=== PATIENT | female | born 1955 | race African-American/Black ===

== ENCOUNTER 2019-02-02 21:52 | Inpatient (IN) | payer MEDICARE, MEDICAID ==
[~2019-02-02] VITALS: Ht 175.3 cm; Wt 68.0 kg
--- NOTE | 2019-02-02 23:40 | NUR ---
NURSE NOTES: Received report from Jazmyne Cruz RN from [place] [facility]. Patient arrived via gurney and transferred to bed with staff assist. Head to toe assessment initiated with BLE swelling noted and sacral stage 2 observed.B Belongings checked and noted. Patient is AAO X 4 with no complaints of acute pain at this time. Patient kept on bedrest for active PE on BLE, MS aware and orders given. IV line intact and patent and on continuous cardiac monitoring per protocol. Safety precaution in place; siderails X3 up, call light within reach, bed in lowest position, brakes and alarm on at all times. Needs and wants anticipated and attended. Will continue plan of care.
[2019-02-03] VITALS: BP 113/77
[2019-02-03] MEDS ORDERED: FUROSEMIDE20 M1 ORAL (00:29)
[2019-02-03] MEDS ORDERED: cefTRIAXone 1 GM in D5W 55 ML IVPB SCH (03:00)
[2019-02-03 04:00] VITALS: BP 106/80
--- NOTE | 2019-02-03 05:00 | NUR ---
NURSE NOTES: Patient in bed asleep with no S/S of distress at this time. Will continue plan of care.
[2019-02-03] MEDS: HYDROcodone/Acetamin 5/325 tab ORAL PRN ×2 (06:29→20:33)
[2019-02-03 07:00] LABS: BASOPHILS % (AUTO) 0.5 % (0.0-2.0); EOSINOPHILS % (AUTO) 0.1 % (0.0-3.0); HEMATOCRIT 35.1 % (37.0-47.0); HEMOGLOBIN 11.6 G/DL (12.0-16.0); LYMPHOCYTES % (AUTO) 30.4 % (20.0-45.0); MEAN CORPUSCULAR VOLUME 98 FL (80-99); MONOCYTES % (AUTO) 4.9 % (1.0-10.0); NEUTROPHILS % (AUTO) 64.2 % (45.0-75.0); PLATELET COUNT 133 K/UL (150-450); RED BLOOD COUNT 3.58 M/UL (4.20-5.40); RED CELL DISTRIBUTION WIDTH 14.4 % (11.6-14.8); WHITE BLOOD COUNT 5.9 K/UL (4.8-10.8)
[2019-02-03 07:07] LABS: INR 1.4 (0.9-1.1)
[2019-02-03 07:21] LABS: ALANINE AMINOTRANSFERASE 42 U/L (12-78); ALBUMIN 1.3 G/DL (3.4-5.0); ALBUMIN/GLOBULIN RATIO 0.4 (1.0-2.7); ALKALINE PHOSPHATASE 138 U/L (46-116); ANION GAP 9 mmol/L (5-15); ASPARTATE AMINO TRANSFERASE 34 U/L (15-37); BILIRUBIN,TOTAL 0.4 MG/DL (0.2-1.0); BLOOD UREA NITROGEN 14 mg/dL (7-18); CALCIUM 6.7 MG/DL (8.5-10.1); CARBON DIOXIDE 24 MMOL/L (21-32); CHLORIDE 113 MMOL/L (98-107); CREATININE 1.1 MG/DL (0.55-1.30); PHOSPHORUS 2.9 MG/DL (2.5-4.9); SODIUM 146 MMOL/L (136-145)
[2019-02-03] MEDS ORDERED: [UNRECOGNIZED DRUG - REMARK] ORAL (07:34)
--- NOTE | 2019-02-03 07:35 | NUR ---
HAND-OFF: Report given to Arline Chamorro RN. Patient in stable condition. Endorsed plan of care.
--- NOTE | 2019-02-03 07:38 | NUR ---
NURSE NOTES: Report received from TATYANA Linder. Patient shows no signs of distress, A+Ox4, denies pain/SOB. Respirations are even and unlabored on room air. IV site is intact and saline locked. Bed is at lowest position, brakes engaged, siderails x3, bed alarm on, and call light within reach. Pt is in stable condition at this time; will continue to monitor.
--- NOTE | 2019-02-03 07:40 | NUR ---
NURSE NOTES: Left a message with Dr. Menjivar regarding patient's K of 3.0 and Mg of 1.7; awaiting response.
--- NOTE | 2019-02-03 07:51 | NUR ---
NURSE NOTES: Per Dr. Menjivar, Kcl 40meq PO q6hr x 2 doses. No other new orders. Order noted and carried out.
[2019-02-03 08:00] VITALS: BP 109/56
[2019-02-03] MEDS: Eliquis 5mg tablet ORAL SCH ×2 (08:33→17:40)
[2019-02-03 09:38] LABS: APPEARANCE,URINE CLOUDY; BILIRUBIN, URINE NEGATIVE (NEGATIVE); GLUCOSE, URINE (UA) NEGATIVE (NEGATIVE); KETONES,URINE 1+ (NEGATIVE); LEUKOCYTE ESTERASE ,URINE 3+ (NEGATIVE); NITRITE,URINE POSITIVE (NEGATIVE); PH,URINE 6.5 (4.5-8.0); PROTEIN,URINE 3+ (NEGATIVE); UROBILINOGEN,URINE 1 MG/DL (0.0-1.0)
[2019-02-03 09:39] LABS: COLOR,URINE BROWN
[2019-02-03 11:55] VITALS: BP 114/73
--- NOTE | 2019-02-03 12:43 | Consultation ---
History of Present Illness General Date patient seen: Feb 03, 2019 Present Illness HPI 63 year old female with gastric by-pas surgery 2003, DVT in November of this year, was put on Eliqui. She didn't take her anticoagulation because of her mother's . She was taken to [facility] yesterday with CC of chest pain for a few days. She had CT angio in [facility] showing Pulmonary embolism. She is transferred to [facility] for further management. She is asymptomatic now. Looks older than her age. Allergies: Coded Allergies: CODEINE (Verified Allergy, Intermediate, 02/03/19) Medication History Scheduled Furosemide* (Lasix*), 20 MG ORAL DAILY, (Reported) [med for OP], Unknown Dose ORAL ONCE A WEEK, (Reported) Patient History Healthcare decision maker Resuscitation status Full Code Advanced Directive on File No Past Medical/Surgical History Past Medical/Surgical History: (1) H/O neck surgery (2) DVT (deep venous thrombosis) (3) History of gastric bypass Review of Systems All Other Systems: negative except mentioned in HPI Physical Exam General Appearance: WD/WN, no apparent distress Lines, tubes and drains: peripheral HEENT: normocephalic, atraumatic Neck: non-tender, normal alignment Respiratory/Chest: chest wall non-tender, normal breath sounds Breasts: no masses Abdomen: normal bowel sounds Genitourinary/Rectal: normal genital exam Extremities: normal range of motion Last 24 Hour Vital Signs Date Time Temp Pulse Resp B/P (MAP) Pulse Ox O2 Delivery O2 Flow Rate FiO2 02/03/19 11:55 97.7 81 16 114/73 (87) 99 02/03/19 09:00 Room Air 02/03/19 08:00 90 02/03/19 08:00 98.1 84 16 109/56 (73) 98 02/03/19 04:00 89 02/03/19 04:00 97.5 88 19 106/80 (89) 96 02/03/19 01:39 Room Air 02/03/19 01:30 88 02/03/19 00:00 97.9 79 20 113/77 (89) 93 Intake and Output 02/02/19 02/03/19 19:00 07:00 Intake Total 120 ml Balance 120 ml Intake Oral 120 ml # Voids 1 # Bowel Movements 1 Laboratory Tests Test 02/03/19 06:18 02/03/19 08:20 White Blood Count 5.9 K/UL (4.8-10.8) Red Blood Count 3.58 M/UL (4.20-5.40) L Hemoglobin 11.6 G/DL (12.0-16.0) L Hematocrit 35.1 % (37.0-47.0) L Mean Corpuscular Volume 98 FL (80-99) Mean Corpuscular Hemoglobin 32.5 PG (27.0-31.0) H Mean Corpuscular Hemoglobin Concent 33.0 G/DL (32.0-36.0) Red Cell Distribution Width 14.4 % (11.6-14.8) Platelet Count 133 K/UL (150-450) L Mean Platelet Volume 5.7 FL (6.5-10.1) L Neutrophils (%) (Auto) 64.2 % (45.0-75.0) Lymphocytes (%) (Auto) 30.4 % (20.0-45.0) Monocytes (%) (Auto) 4.9 % (1.0-10.0) Eosinophils (%) (Auto) 0.1 % (0.0-3.0) Basophils (%) (Auto) 0.5 % (0.0-2.0) Prothrombin Time 14.3 SEC (9.30-11.50) H Prothromb Time International Ratio 1.4 (0.9-1.1) H Activated Partial Thromboplast Time 31 SEC (23-33) Sodium Level 146 MMOL/L (136-145) H Potassium Level 3.0 MMOL/L (3.5-5.1) L Chloride Level 113 MMOL/L (98-107) H Carbon Dioxide Level 24 MMOL/L (21-32) Anion Gap 9 mmol/L (5-15) Blood Urea Nitrogen 14 mg/dL (7-18) Creatinine 1.1 MG/DL (0.55-1.30) Estimat Glomerular Filtration Rate > 60 mL/min (>60) Glucose Level 78 MG/DL (74-106) Calcium Level 6.7 MG/DL (8.5-10.1) L Phosphorus Level 2.9 MG/DL (2.5-4.9) Magnesium Level 1.7 MG/DL (1.8-2.4) L Total Bilirubin 0.4 MG/DL (0.2-1.0) Aspartate Amino Transf (AST/SGOT) 34 U/L (15-37) Alanine Aminotransferase (ALT/SGPT) 42 U/L (12-78) Alkaline Phosphatase 138 U/L (46-116) H Total Protein 4.8 G/DL (6.4-8.2) L Albumin 1.3 G/DL (3.4-5.0) L Globulin 3.5 g/dL Albumin/Globulin Ratio 0.4 (1.0-2.7) L Urine Color Brown Urine Appearance Cloudy Urine pH 6.5 (4.5-8.0) Urine Specific [place] 1.015 (1.005-1.035) Urine Protein 3+ (NEGATIVE) H Urine Glucose (UA) Negative (NEGATIVE) Urine Ketones 1+ (NEGATIVE) H Urine Blood 5+ (NEGATIVE) H Urine Nitrite Positive (NEGATIVE) H Urine Bilirubin Negative (NEGATIVE) Urine Urobilinogen 1 MG/DL (0.0-1.0) H Urine Leukocyte Esterase 3+ (NEGATIVE) H Urine RBC 60-80 /HPF (0 - 2) H Urine WBC Tntc /HPF (0 - 2) H Urine Squamous Epithelial Cells Occasional /LPF Urine Bacteria Few /HPF (NONE) Height (Feet): 5 Height (Inches): 9.00 Weight (Pounds): 150 Medications Current Medications Medications (Trade) Dose Ordered Sig/Ronnie Route PRN Reason Start Time Stop Time Status Last Admin Dose Admin Acetaminophen (Tylenol) 650 mg Q6H PRN ORAL Mild Pain/Temp > 100.5 02/03/19 02:30 03/05/19 02:29 Acetaminophen/ Hydrocodone Bitart (Calvin 5/325) 1 tab Q6H PRN ORAL Severe Pain (Pain Scale 7-10) 02/03/19 02:30 02/10/19 02:29 02/03/19 06:29 Apixaban (Eliquis) 10 mg BID ORAL 02/03/19 09:00 03/05/19 08:59 02/03/19 08:33 Ceftriaxone Sodium 1 gm/ Dextrose 55 ml @ 110 mls/hr Q24H IVPB 02/03/19 21:00 02/10/19 02:59 Potassium Chloride (K-Dur) 40 meq ONCE ORAL 02/03/19 15:00 02/03/19 16:30 Assessment/Plan Problem List: (1) Pulmonary embolism ICD Codes: I26.99 - Other pulmonary embolism without acute cor pulmonale SNOMED: 87678883 (2) DVT (deep venous thrombosis) ICD Codes: I82.409 - Acute embolism and thrombosis of unspecified deep veins of unspecified lower extremity SNOMED: 701248651 (3) History of gastric bypass ICD Codes: Z98.84 - Bariatric surgery status SNOMED: 229585764 (4) H/O neck surgery ICD Codes: Z98.890 - Other specified postprocedural states SNOMED: 704839204 Assessment/Plan: brenden Tejeda pt/ot cardiac study venous doppler of legs Nga Arnett MD Feb 03, 2019 12:43
--- NOTE | 2019-02-03 14:17 | History & Physical ---
History and Physical History & Physicial Devonte Menjivar MD Feb 03, 2019 14:17
--- NOTE | 2019-02-03 15:09 | NUR ---
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 TO TELE CC CHEST PAIN, PT DID NOT TAKE ELIQUISE SI; R/O PE NA 146 K 3.0 MG 1.7 UA+ NITRITE,BLOOD,KETONES,PROTEIN,LEUKOCYTE ESTERASE,RBC,WBC CT ANGIO= PE IS: ROCEPHIN IV ELIQUISE PO K-DUR PO ADMITTED TO TELE TELE STATUS DCP RETURN HOME
[2019-02-03 16:00] VITALS: BP 113/82
--- NOTE | 2019-02-03 17:15 | History and Physical Report ---
DATE OF ADMISSION: 02/02/2019 CHIEF COMPLAINT: Shortness of breath and chest pain. HISTORY OF PRESENT ILLNESS: This is a 63-year-old female with past medical history significant for cervical as well as lumbar spine fusion, history of recent DVT in November of 2018, and history of morbid obesity status post gastric bypass surgery in 2013 who presented to the hospital after complaining about shortness of breath at the [facility] associated with chest pain over the past 2 days. The patient was diagnosed with DVT several months ago, was not started on any anticoagulation. The patient subsequently with chest discomfort, right-sided weakness over one week. Chest became progressively worsening, waxed and weaned. She reports some urinary tract symptoms with blood in the urine just started. The patient denies any fever, however, had chills and nausea. No vomiting. No loss of consciousness. No seizure activity. No bowel or urine incontinence. No head and neck trauma. Shortly after initial evaluation in the emergency at [facility], the patient was confirmed to have acute PE and subsequently was transferred to [facility] for further evaluation and therapy. PAST MEDICAL HISTORY/PAST SURGICAL HISTORY: Cervical as well as lumbar fusion, history of morbid obesity status post gastric bypass in 2013, osteoporosis. MEDICATIONS AT HOME: Significant for Fosamax. ALLERGIES: To codeine. SOCIAL HISTORY: The patient denies any smoking, alcohol, or drugs. 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 FAMILY HISTORY: Mother - history of lupus, father - history of diabetes, alive, and grandma - history of lung cancer, smoker. REVIEW OF SYSTEMS: Mostly as above. Denies any dysuria or frequency. Complained about hematuria. Denies any hemoptysis or hematochezia. Complained about abdominal discomfort, right-sided weakness. Denies any loss of consciousness. Denies any double vision. Complained about pedal edema. PHYSICAL EXAMINATION: VITAL SIGNS: On admission from the ER in the [facility], blood pressure 116/82, temperature 98, pulse is 118, respirations 18. GENERAL: The patient is awake, responsive, no acute distress. HEAD AND NECK: Pupils are reactive to light. Extraocular movements intact. Neck was supple. No JVD. LUNGS: Good air entry with no wheeze or rales. HEART: S1, S2. Distant heart sounds. No murmur or gallops. ABDOMEN: Soft, nondistended, nontender. Bowel sounds present. EXTREMITIES: No cyanosis, clubbing. +2 edema bilateral lower extremity. NEUROLOGIC: Cranial nerves II through XII grossly intact. Motor is 5/5. Gait is not assessed due to the patient's status. RECTAL: Refused and deferred. GENITOURINARY: Refused and deferred. PSYCHIATRIC: Mood and affect is intact. LABORATORY DATA: On admission from today from [place], WBC of 5.9, hemoglobin 11, hematocrit 35, platelet is 133. Sodium 146, potassium 3.0, chloride 113, bicarbonate is 24, BUN is 14, creatinine 1.1, GFR is greater than 60. Phosphorus 2.9, magnesium is 1.7. AST of 34, ALT of 42, alkaline phosphatase 138. Total protein is 4.8, albumin is 1.3. PT 14, INR 1.4, PTT of 31. UA is +1 ketone, +5 blood, positive nitrite, +3 leukocyte, tainted wbc. The patient's EKG is normal sinus rhythm with ventricular rate of 79. No ST elevation was noted. This was the reading from the [place]. Chest x-ray, no infiltrate or effusion. Hardware was noted. CT of the chest at [facility] pulmonary embolism are seen at the right main pulmonary artery and throughout the right lobes. Emboli are seen in all of the left lobe arteries, small to moderate left pleural effusion, atelectasis or a small infarction is seen in the right lower lobe. ASSESSMENT: 1. Acute PE, bilateral PE. 2. History of DVT of lower extremity. 3. Hypoalbuminemia. 4. Acute UTI. 5. Thrombocytopenia. 6. Hypokalemia. PLAN: Admit the patient to telemetry. We will follow up with the laboratory, echocardiogram. Discussed with Dr. Arnett from [facility]. We will follow up with the Eliquis for DVT. Code status at this time Full Code and reviewed the [facility] records and placed in the chart. Discussed with the patient extensively with regard to plan of care and expected to be discharged within 2 to 3 days. Devonte Menjivar M.D. DR: MARINA JOB#: [id number] CC:
--- NOTE | 2019-02-03 17:36 | NUR ---
NURSE NOTES:WOUND CARE NOTES:Pt presented on admission with Generalized edemae.Full thickness sacral pressure injury. Base of wound is moist with small amt Biofilm. Edges are moist and black and tender when minimally palpated. No exudate noted. Periwound skin is darker in tone. Both R and L heels are boggy with non-blanching erythema. Tx.Plan: Cleanse Sacral wound with Saline. Apply TheraHoney. Apply Moisture Barrier Paste periwound. Cover with Optifoam drsg. Change every 3 days and prn. Apply Cavilon Skin Barrier to Both heels. Cover each heel with Optifoam Drsg. Change every 7 days and prn. Reposition at least every 2hours or as tolerated. Off-load heels with pillow.
--- NOTE | 2019-02-03 18:10 | Consultation ---
History of Present Illness General Date patient seen: Feb 03, 2019 Present Illness HPI This is a very pleasant 63-year-old female with prior gastric bypass and history of DVT who was on anticoagulation prior not always compliant with meds that presented to [facility] complaining of worsening lower extremity discomfort. Patient states ongoing for a few days and feels like cramping in her lower extremities. Has had this prior. Believes is related to the DVT she has. States she is been going through a lot lately. States that for the past few months her right side is been weak and she has not been able to move much on her own. No nausea vomiting fever chills. Otherwise comfortable. States overall just has pain mainly in the legs. When discussed patient says she is concerned that her mobility has been very limited recently and worsening but has not found a reason why though yet. Discussed if any possible history of stroke or certain events and denies. On transfer I was called by Dr. Menjivar to evaluate and assist with care and management. Patient seen, patient evaluated, chart reviewed Allergies: Coded Allergies: CODEINE (Verified Allergy, Intermediate, 02/03/19) Medication History Scheduled Furosemide* (Lasix*), 20 MG ORAL DAILY, (Reported) [med for OP], Unknown Dose ORAL ONCE A WEEK, (Reported) Patient History History Provided By: Patient, Medical Record, PMD Healthcare decision maker Resuscitation status Full Code Advanced Directive on File No Past Medical/Surgical History Past Medical/Surgical History: (1) Decubitus skin ulcer (2) DVT (deep venous thrombosis) (3) Pulmonary embolism (4) History of gastric bypass (5) H/O neck surgery Review of Systems Review of Symptoms General ROS: no weight loss or fever Psychological ROS: no depression or mood changes, no memory loss Ophthalmic ROS: no visual changes or eye irritation ENT ROS: no nasal congestion, hearing loss, dizziness Allergy and Immunology ROS: no allergic symptoms or urticaria Hematological and Lymphatic ROS: no swollen glands, unusual bleeding or bruising Endocrine ROS: no polyuria, polydipsia, weight changes, temperature intolerance Respiratory ROS: no cough, shortness of breath, or wheezing Cardiovascular ROS: no chest pain or dyspnea on exertion Gastrointestinal ROS: denies abdominal pain, no bright red blood in stool. Musculoskeletal ROS: LE pain Neurological ROS: no TIA or stroke symptoms Dermatological ROS: no new or changing skin lesions, rashes or pruritis Physical Exam Physical Exam General appearance: alert, cooperative, no distress, appears stated age Head: Normocephalic, without obvious abnormality, atraumatic Eyes: conjunctivae/corneas clear. PERRL, EOM's intact. Fundi benign Throat: Lips, mucosa, and tongue normal. Teeth and gums normal Neck: supple, symmetrical, trachea midline, no adenopathy, thyroid: not enlarged, symmetric, no tenderness/mass/nodules, no carotid bruit and no JVD Lungs: clear to auscultation bilaterally Heart: regular rate and rhythm, S1, S2 normal, no murmur, click, rub or gallop Abdomen: soft, non-tender. Bowel sounds normal. No masses, no organomegaly Extremities: extremities normal, atraumatic, no cyanosis ++ edema, decreased rom Pulses: 2+ and symmetric Skin: Skin color, texture, turgor normal. No rashes or lesions decubitus skin ulcer sacrum Neurologic: Grossly normal Last 24 Hour Vital Signs Date Time Temp Pulse Resp B/P (MAP) Pulse Ox O2 Delivery O2 Flow Rate FiO2 02/03/19 16:00 78 02/03/19 16:00 97.7 82 16 113/82 (92) 99 02/03/19 12:00 78 02/03/19 11:55 97.7 81 16 114/73 (87) 99 02/03/19 09:00 Room Air 02/03/19 08:00 90 02/03/19 08:00 98.1 84 16 109/56 (73) 98 02/03/19 04:00 89 02/03/19 04:00 97.5 88 19 106/80 (89) 96 02/03/19 01:39 Room Air 02/03/19 01:30 88 02/03/19 00:00 97.9 79 20 113/77 (89) 93 Intake and Output 02/02/19 02/03/19 19:00 07:00 Intake Total 120 ml Balance 120 ml Intake Oral 120 ml # Voids 1 # Bowel Movements 1 Laboratory Tests Test 02/03/19 06:18 02/03/19 08:20 White Blood Count 5.9 K/UL (4.8-10.8) Red Blood Count 3.58 M/UL (4.20-5.40) L Hemoglobin 11.6 G/DL (12.0-16.0) L Hematocrit 35.1 % (37.0-47.0) L Mean Corpuscular Volume 98 FL (80-99) Mean Corpuscular Hemoglobin 32.5 PG (27.0-31.0) H Mean Corpuscular Hemoglobin Concent 33.0 G/DL (32.0-36.0) Red Cell Distribution Width 14.4 % (11.6-14.8) Platelet Count 133 K/UL (150-450) L Mean Platelet Volume 5.7 FL (6.5-10.1) L Neutrophils (%) (Auto) 64.2 % (45.0-75.0) Lymphocytes (%) (Auto) 30.4 % (20.0-45.0) Monocytes (%) (Auto) 4.9 % (1.0-10.0) Eosinophils (%) (Auto) 0.1 % (0.0-3.0) Basophils (%) (Auto) 0.5 % (0.0-2.0) Prothrombin Time 14.3 SEC (9.30-11.50) H Prothromb Time International Ratio 1.4 (0.9-1.1) H Activated Partial Thromboplast Time 31 SEC (23-33) Sodium Level 146 MMOL/L (136-145) H Potassium Level 3.0 MMOL/L (3.5-5.1) L Chloride Level 113 MMOL/L (98-107) H Carbon Dioxide Level 24 MMOL/L (21-32) Anion Gap 9 mmol/L (5-15) Blood Urea Nitrogen 14 mg/dL (7-18) Creatinine 1.1 MG/DL (0.55-1.30) Estimat Glomerular Filtration Rate > 60 mL/min (>60) Glucose Level 78 MG/DL (74-106) Calcium Level 6.7 MG/DL (8.5-10.1) L Phosphorus Level 2.9 MG/DL (2.5-4.9) Magnesium Level 1.7 MG/DL (1.8-2.4) L Total Bilirubin 0.4 MG/DL (0.2-1.0) Aspartate Amino Transf (AST/SGOT) 34 U/L (15-37) Alanine Aminotransferase (ALT/SGPT) 42 U/L (12-78) Alkaline Phosphatase 138 U/L (46-116) H Total Protein 4.8 G/DL (6.4-8.2) L Albumin 1.3 G/DL (3.4-5.0) L Globulin 3.5 g/dL Albumin/Globulin Ratio 0.4 (1.0-2.7) L Urine Color Brown Urine Appearance Cloudy Urine pH 6.5 (4.5-8.0) Urine Specific [place] 1.015 (1.005-1.035) Urine Protein 3+ (NEGATIVE) H Urine Glucose (UA) Negative (NEGATIVE) Urine Ketones 1+ (NEGATIVE) H Urine Blood 5+ (NEGATIVE) H Urine Nitrite Positive (NEGATIVE) H Urine Bilirubin Negative (NEGATIVE) Urine Urobilinogen 1 MG/DL (0.0-1.0) H Urine Leukocyte Esterase 3+ (NEGATIVE) H Urine RBC 60-80 /HPF (0 - 2) H Urine WBC Tntc /HPF (0 - 2) H Urine Squamous Epithelial Cells Occasional /LPF Urine Bacteria Few /HPF (NONE) Height (Feet): 5 Height (Inches): 9.00 Weight (Pounds): 150 Medications Current Medications Medications (Trade) Dose Ordered Sig/Ronnie Route PRN Reason Start Time Stop Time Status Last Admin Dose Admin Acetaminophen (Tylenol) 650 mg Q6H PRN ORAL Mild Pain/Temp > 100.5 02/03/19 02:30 03/05/19 02:29 Acetaminophen/ Hydrocodone Bitart (Stella 5/325) 1 tab Q6H PRN ORAL Severe Pain (Pain Scale 7-10) 02/03/19 02:30 02/10/19 02:29 02/03/19 06:29 Apixaban (Eliquis) 10 mg BID ORAL 02/03/19 09:00 03/05/19 08:59 02/03/19 17:40 Ceftriaxone Sodium 1 gm/ Dextrose 55 ml @ 110 mls/hr Q24H IVPB 02/03/19 21:00 02/10/19 02:59 Assessment/Plan Problem List: (1) Decubitus skin ulcer Assessment & Plan: Patient presented on admission with edema and wound complaining of pain in lower extremities for some time believed to be related to her DVT Full thickness stage 3 sacral pressure injury. Base of wound is moist with small amt Biofilm. Edges are moist and black and tender when minimally palpated. No exudate noted. Periwound skin is darker in tone. Both R and L heels are boggy with non-blanching erythema. Patient states that she has been having worsening limited mobility over the course the past few months. States that she can somewhat turn herself but her right side is weak and is unable to turn at all times. Is able to wiggle her toes and lower extremities but limited. Right upper extremity most limited. Denies history of prior stroke or events. States is been slowly worsening over the past some months. Notes history of osteoporosis. Tx.Plan: Cleanse Sacral wound with Saline. Apply TheraHoney. Apply Moisture Barrier Paste periwound. Cover with Optifoam drsg. Change every 3 days and prn. Apply Cavilon Skin Barrier to Both heels. Cover each heel with Optifoam Drsg. Change every 7 days and prn. Reposition at least every 2hours or as tolerated. Off-load heels with pillow. Nutritional supplementation will follow with care plan and recommendations thank you ICD Codes: L89.90 - Pressure ulcer of unspecified site, unspecified stage SNOMED: 137263189 Junaid Hope Feb 03, 2019 18:10
--- NOTE | 2019-02-03 19:40 | NUR ---
HAND-OFF: Report given to TATYANA Linder. Pt is in stable condition; plan of care endorsed.
--- NOTE | 2019-02-03 19:45 | NUR ---
NURSE NOTES: Received report from Arline Chamorro RN. Patient in bed AAO X4 with no complaints of acute pain at this time. Patient kept on bedrest for active PE on BLE, MS aware and orders given. IV line intact and patent and on continuous cardiac monitoring per protocol. Safety precaution in place; siderails X3 up, call light within reach, bed in lowest position, brakes and alarm on at all times. Needs and wants anticipated and attended. Will continue plan of care. ABD US tomorrow 02/04/19. NPO at midnight
[2019-02-03 20:00] VITALS: BP 110/76
[2019-02-03] MEDS: cefTRIAXone 1 GM in D5W 55 ML IVPB SCH (20:33)
[2019-02-04] VITALS: BP 100/77
[2019-02-04 04:00] VITALS: BP 112/74
[2019-02-04 06:56] LABS: BASOPHILS % (AUTO) 0.6 % (0.0-2.0); HEMATOCRIT 41.1 % (37.0-47.0); HEMOGLOBIN 13.4 G/DL (12.0-16.0); LYMPHOCYTES % (AUTO) 36.4 % (20.0-45.0); MEAN CORPUSCULAR VOLUME 100 FL (80-99); MONOCYTES % (AUTO) 5.8 % (1.0-10.0); NEUTROPHILS % (AUTO) 57.1 % (45.0-75.0); PLATELET COUNT 167 K/UL (150-450); RED CELL DISTRIBUTION WIDTH 14.2 % (11.6-14.8); WHITE BLOOD COUNT 7.6 K/UL (4.8-10.8)
--- NOTE | 2019-02-04 07:35 | NUR ---
HAND-OFF: Report given to Elvis Resendez RN. Patient in bed with no S/S of distress. Endorsed plan of care.
--- NOTE | 2019-02-04 07:39 | NUR ---
NURSE NOTES: HANDOFF RECEIVED FROM TATYANA MOODY. PATIENT RECEIVED AWAKE AND ALERT AND ABLE TO MAKE NEEDS KNOWN. PATIENT HAS IV SITE, CLEAN DRY AND INTACT, SALINE LOCKED. NO SIGNS OF DISTRESS NOTED. BED IS IN THE LOW AND LOCKED POSITION WITH CALL LIGHT WITHIN REACH. WILL CONTINUE TO MONITOR PATIENT.
[2019-02-04 07:43] LABS: ALANINE AMINOTRANSFERASE 49 U/L (12-78); ALBUMIN 1.6 G/DL (3.4-5.0); ALBUMIN/GLOBULIN RATIO 0.4 (1.0-2.7); ALKALINE PHOSPHATASE 158 U/L (46-116); ANION GAP 7 mmol/L (5-15); ASPARTATE AMINO TRANSFERASE 40 U/L (15-37); BILIRUBIN,TOTAL 0.4 MG/DL (0.2-1.0); BLOOD UREA NITROGEN 13 mg/dL (7-18); CALCIUM 7.1 MG/DL (8.5-10.1); CARBON DIOXIDE 24 MMOL/L (21-32); CHLORIDE 112 MMOL/L (98-107); CREATININE 1.2 MG/DL (0.55-1.30); LACTATE DEHYDROGENASE 603 U/L (81-234); PHOSPHORUS 2.3 MG/DL (2.5-4.9); POTASSIUM 3.8 MMOL/L (3.5-5.1); SODIUM 143 MMOL/L (136-145)
[2019-02-04 08:00] VITALS: BP 106/72
[2019-02-04] MEDS: Eliquis 5mg tablet ORAL SCH ×2 (09:10→17:20)
--- NOTE | 2019-02-04 10:08 | Pulmonology Progress Note ---
Assessment/Plan Problems: (1) Pulmonary embolism (2) DVT (deep venous thrombosis) (3) History of gastric bypass (4) H/O neck surgery (5) UTI (urinary tract infection) (6) Severe protein-calorie malnutrition (7) Hypophosphatemia Assessment/Plan pt/ot Phos supplement on Eliquis still tachy abd US pending Subjective Interval Events: no new complains Allergies: Coded Allergies: CODEINE (Verified Allergy, Intermediate, 02/03/19) Objective Last 24 Hour Vital Signs Date Time Temp Pulse Resp B/P (MAP) Pulse Ox O2 Delivery O2 Flow Rate FiO2 02/04/19 09:00 Room Air 02/04/19 08:00 97.2 74 18 106/72 (83) 96 02/04/19 04:00 98.9 74 18 112/74 (87) 97 02/04/19 04:00 63 02/04/19 00:00 99.0 78 18 100/77 (85) 96 02/04/19 00:00 69 02/03/19 21:00 Room Air 02/03/19 20:00 71 02/03/19 20:00 99.3 70 18 110/76 (87) 98 02/03/19 16:00 78 02/03/19 16:00 97.7 82 16 113/82 (92) 99 02/03/19 12:00 78 02/03/19 11:55 97.7 81 16 114/73 (87) 99 Intake and Output 02/03/19 02/04/19 19:00 07:00 Intake Total 630 ml 120 ml Output Total 300 ml Balance 330 ml 120 ml Intake Oral 630 ml 120 ml Output Urine Total 300 ml # Voids 1 General Appearance: WD/WN HEENT: normocephalic, atraumatic Respiratory/Chest: chest wall non-tender, lungs clear Breasts: no masses Cardiovascular: normal peripheral pulses, normal rate Abdomen: normal bowel sounds, soft, non tender Neurologic/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: principal technical architect II-XII grossly normal Lymphatic: no neck adenopathy Microbiology Date/Time Source Procedure Growth Status 02/03/19 08:20 Urine,Clean Catch Urine Culture - Preliminary Gram Negative Bacillus 1 Resulted Laboratory Tests 02/04/19 06:11: White Blood Count 7.6, Red Blood Count 4.10L, Hemoglobin 13.4, Hematocrit 41.1, Mean Corpuscular Volume 100H, Mean Corpuscular Hemoglobin 32.6H, Mean Corpuscular Hemoglobin Concent 32.5, Red Cell Distribution Width 14.2, Platelet Count 167, Mean Platelet Volume 5.7L, Neutrophils (%) (Auto) 57.1, Lymphocytes ( %) (Auto) 36.4, Monocytes (%) (Auto) 5.8, Eosinophils (%) (Auto) 0.0, Basophils (%) (Auto) 0.6, Erythrocyte Sedimentation Rate 9, Reticulocyte Count [Pending], Sodium Level 143, Potassium Level 3.8, Chloride Level 112H, Carbon Dioxide Level 24, Anion Gap 7, Blood Urea Nitrogen 13, Creatinine 1.2, Estimat Glomerular Filtration Rate 54.9, Glucose Level 78, Calcium Level 7.1L, Phosphorus Level 2.3L, Magnesium Level 2.0, Total Bilirubin 0.4, Aspartate Amino Transf (AST/SGOT) 40H, Alanine Aminotransferase (ALT/SGPT) 49, Alkaline Phosphatase 158H, Lactate Dehydrogenase 603H, Total Protein 5.7L, Albumin 1.6L, Globulin 4.1, Albumin/Globulin Ratio 0.4L Current Medications Medications (Trade) Dose Ordered Sig/Ronnie Route PRN Reason Start Time Stop Time Status Last Admin Dose Admin Acetaminophen (Tylenol) 650 mg Q6H PRN ORAL Mild Pain/Temp > 100.5 02/03/19 02:30 03/05/19 02:29 02/04/19 09:09 Acetaminophen/ Hydrocodone Bitart ([place] 5/325) 1 tab Q6H PRN ORAL Severe Pain (Pain Scale 7-10) 02/03/19 02:30 02/10/19 02:29 02/03/19 20:33 Apixaban (Eliquis) 10 mg BID ORAL 02/03/19 09:00 03/05/19 08:59 02/04/19 09:10 Ceftriaxone Sodium 1 gm/ Dextrose 55 ml @ 110 mls/hr Q24H IVPB 02/03/19 21:00 02/10/19 02:59 02/03/19 20:33 Nga Arnett MD Feb 04, 2019 10:08
--- NOTE | 2019-02-04 11:05 | NUR ---
PT EVALUATION NOTE Patient seen for initial evaluation, see complete evaluation for details. Patient presents with generalized weakness which impairs patient's ability to perform mobility tasks safely. Patient able to come to sitting at EOB without physical assistance however uses her UEs to move her LEs over the EOB. Patient able to transfer sit to stand with CGA/min assist and FWW. Gait deferred due to weakness and pain BLE. Patient will benefit from skilled inpatient PT intervention to address strength, balance and safety for improved level of functional mobility. Recommend discharge to SNF for further rehab once medically cleared by MD as patient lives alone and has 5 stairs to access her apartment. DME needs to be determined based on discharge disposition and patient's progress. Addendum: 02/04/19 at 1324 by LAURIE BARRETO PT Amended: Links added.
--- NOTE | 2019-02-04 11:23 | NUR ---
RD ASSESSMENT & RECOMMENDATIONS SEE CARE ACTIVITY FOR COMPLETE ASSESSMENT DAILY ESTIMATED NEEDS: Needs based on Pulmonary, wounds; 74.6kg 25-30 kcals/kg 1865- 2238 total kcals 1.25-1.5 g protein/kg 93- 112 g total protein 25-30 mL/kg 2969-2838 total fluid mLs NUTRITION DIAGNOSIS: *Increased kcal and pro needs r/t wound healing AEB pt w/ stage 3 sacral wound per WC RN. CURRENT DIET:Regular PO DIET RECOMMENDATIONS: Regular diet- small frequent meals/ NCS ADDITIONAL RECOMMENDATIONS: 1) Provide Tank BID for wound healing +Vit C 250mg BID + MVI w/ min x1 2) Provide high protein snacks in b/w 3) Obtain a standing weight if able/ calibrated bed scale wt otherwise 4) Monitor lytes daily 5) Rec Meals on Wheels post d/c; Home assistance w/ meal prep
[2019-02-04 12:00] VITALS: BP 141/69
--- NOTE | 2019-02-04 12:18 | Diagnostic Imaging Report ---
Indication: Abnormal liver function tests Technique: Magaña-scale and duplex images of the upper abdomen were obtained Comparison: none Findings: There is a moderate amount of ascites fluid. There is a left pleural effusion. The gallbladder is not visualized. Common bile duct measures 3 mm in diameter. No intrahepatic biliary ductal dilatation. Liver demonstrates normal echogenicity, no focal abnormality. No surface nodularity Portal vein and hepatic veins are patent. Pancreas is incompletely visualized due to overlying bowel gas, visualized portions are unremarkable. Spleen is unremarkable. Left kidney measures 8.5 cm in length. Right kidney measures 8.8 cm length. Both kidneys demonstrate slightly increased echogenicity. There is no hydronephrosis. No focal abnormality . Abdominal aorta is partially obscured by bowel gas, visualized portions are non-aneurysmal . Impression: Nonvisualized gallbladder. May be contracted or surgically absent. Correlate with surgical history Negative for dilated bile ducts Ascites Left pleural effusion Atrophic slightly echogenic kidneys, consistent with medical renal disease Note nonvisualization of the portions of the pancreas and the abdominal aorta
[2019-02-04] MEDS ORDERED: Sodium Phosphate 30 MM in NS 275 ML IV ONE (12:45)
--- NOTE | 2019-02-04 15:21 | Surgery Progress Note ---
Surgery Progress Note Subjective Additional Comments no acute events comfortable stable states leg pain improved herself has noted decrease in edema no n/v/f/c labs as below Objective Last 24 Hour Vital Signs Date Time Temp Pulse Resp B/P (MAP) Pulse Ox O2 Delivery O2 Flow Rate FiO2 02/04/19 12:00 97.5 80 19 141/69 (93) 100 02/04/19 12:00 78 02/04/19 09:00 Room Air 02/04/19 08:00 97.2 74 18 106/72 (83) 96 02/04/19 08:00 72 02/04/19 04:00 98.9 74 18 112/74 (87) 97 02/04/19 04:00 63 02/04/19 00:00 99.0 78 18 100/77 (85) 96 02/04/19 00:00 69 02/03/19 21:00 Room Air 02/03/19 20:00 71 02/03/19 20:00 99.3 70 18 110/76 (87) 98 02/03/19 16:00 78 02/03/19 16:00 97.7 82 16 113/82 (92) 99 I&O Intake and Output 02/03/19 02/04/19 19:00 07:00 Intake Total 630 ml 120 ml Output Total 300 ml Balance 330 ml 120 ml Intake Oral 630 ml 120 ml Output Urine Total 300 ml # Voids 1 Dressing: other Wound: other Drains: other Cardiovascular: RSR Respiratory: clear Abdomen: soft, flat, non-tender, present bowel sounds Extremities: edema, no tenderness, no cyanosis, other Laboratory Tests Test 02/04/19 06:11 White Blood Count 7.6 K/UL (4.8-10.8) Red Blood Count 4.10 M/UL (4.20-5.40) L Hemoglobin 13.4 G/DL (12.0-16.0) Hematocrit 41.1 % (37.0-47.0) Mean Corpuscular Volume 100 FL (80-99) H Mean Corpuscular Hemoglobin 32.6 PG (27.0-31.0) H Mean Corpuscular Hemoglobin Concent 32.5 G/DL (32.0-36.0) Red Cell Distribution Width 14.2 % (11.6-14.8) Platelet Count 167 K/UL (150-450) Mean Platelet Volume 5.7 FL (6.5-10.1) L Neutrophils (%) (Auto) 57.1 % (45.0-75.0) Lymphocytes (%) (Auto) 36.4 % (20.0-45.0) Monocytes (%) (Auto) 5.8 % (1.0-10.0) Eosinophils (%) (Auto) 0.0 % (0.0-3.0) Basophils (%) (Auto) 0.6 % (0.0-2.0) Erythrocyte Sedimentation Rate 9 MM/HR (0-30) Reticulocyte Count 1.3 % (0.5-2.0) Sodium Level 143 MMOL/L (136-145) Potassium Level 3.8 MMOL/L (3.5-5.1) Chloride Level 112 MMOL/L (98-107) H Carbon Dioxide Level 24 MMOL/L (21-32) Anion Gap 7 mmol/L (5-15) Blood Urea Nitrogen 13 mg/dL (7-18) Creatinine 1.2 MG/DL (0.55-1.30) Estimat Glomerular Filtration Rate 54.9 mL/min (>60) Glucose Level 78 MG/DL (74-106) Calcium Level 7.1 MG/DL (8.5-10.1) L Phosphorus Level 2.3 MG/DL (2.5-4.9) L Magnesium Level 2.0 MG/DL (1.8-2.4) Total Bilirubin 0.4 MG/DL (0.2-1.0) Aspartate Amino Transf (AST/SGOT) 40 U/L (15-37) H Alanine Aminotransferase (ALT/SGPT) 49 U/L (12-78) Alkaline Phosphatase 158 U/L (46-116) H Lactate Dehydrogenase 603 U/L (81-234) H Total Protein 5.7 G/DL (6.4-8.2) L Albumin 1.6 G/DL (3.4-5.0) L Globulin 4.1 g/dL Albumin/Globulin Ratio 0.4 (1.0-2.7) L Plan Problems: (1) Decubitus skin ulcer Assessment & Plan: Patient presented on admission with edema and wound complaining of pain in lower extremities for some time believed to be related to her DVT Full thickness stage 3 sacral pressure injury. Base of wound is moist with small amt Biofilm. Edges are moist and black and tender when minimally palpated. No exudate noted. Periwound skin is darker in tone. Both R and L heels are boggy with non-blanching erythema. Patient states that she has been having worsening limited mobility over the course the past few months. States that she can somewhat turn herself but her right side is weak and is unable to turn at all times. Is able to wiggle her toes and lower extremities but limited. Right upper extremity most limited. Denies history of prior stroke or events. States is been slowly worsening over the past some months. Notes history of osteoporosis. Tx.Plan: Cleanse Sacral wound with Saline. Apply TheraHoney. Apply Moisture Barrier Paste periwound. Cover with Optifoam drsg. Change every 3 days and prn. Apply Cavilon Skin Barrier to Both heels. Cover each heel with Optifoam Drsg. Change every 7 days and prn. Reposition at least every 2hours or as tolerated. Off-load heels with pillow. Nutritional supplementation will follow with care plan and recommendations thank you Junaid Hope Feb 04, 2019 15:21
--- NOTE | 2019-02-04 15:28 | Internal Med Progress Note ---
Subjective Physician Name Devonte Menjivar Attending Physician Devonte Menjiavr MD Current Medications Medications (Trade) Dose Ordered Sig/Ronnie Route PRN Reason Start Time Stop Time Status Last Admin Dose Admin Acetaminophen (Tylenol) 650 mg Q6H PRN ORAL Mild Pain/Temp > 100.5 02/03/19 02:30 03/05/19 02:29 02/04/19 09:09 Acetaminophen/ Hydrocodone Bitart ([place] 5/325) 1 tab Q6H PRN ORAL Severe Pain (Pain Scale 7-10) 02/03/19 02:30 02/10/19 02:29 02/03/19 20:33 Apixaban (Eliquis) 10 mg BID ORAL 02/03/19 09:00 03/05/19 08:59 02/04/19 09:10 Ceftriaxone Sodium 1 gm/ Dextrose 55 ml @ 110 mls/hr Q24H IVPB 02/03/19 21:00 02/10/19 02:59 02/03/19 20:33 Sodium Phosphate 30 mm/Sodium Chloride 285 ml @ 47.5 mls/hr ONCE ONCE IV 02/04/19 12:45 02/04/19 18:44 02/04/19 13:07 Allergies: Coded Allergies: CODEINE (Verified Allergy, Intermediate, 02/03/19) Subjective awake, alert, responsive, less SOB, No Chest pain Objective Last Vital Signs Date Time Temp Pulse Resp B/P (MAP) Pulse Ox O2 Delivery O2 Flow Rate FiO2 02/04/19 12:00 97.5 80 19 141/69 (93) 100 02/04/19 09:00 Room Air Laboratory Tests Test 02/04/19 06:11 White Blood Count 7.6 K/UL (4.8-10.8) Red Blood Count 4.10 M/UL (4.20-5.40) L Hemoglobin 13.4 G/DL (12.0-16.0) Hematocrit 41.1 % (37.0-47.0) Mean Corpuscular Volume 100 FL (80-99) H Mean Corpuscular Hemoglobin 32.6 PG (27.0-31.0) H Mean Corpuscular Hemoglobin Concent 32.5 G/DL (32.0-36.0) Red Cell Distribution Width 14.2 % (11.6-14.8) Platelet Count 167 K/UL (150-450) Mean Platelet Volume 5.7 FL (6.5-10.1) L Neutrophils (%) (Auto) 57.1 % (45.0-75.0) Lymphocytes (%) (Auto) 36.4 % (20.0-45.0) Monocytes (%) (Auto) 5.8 % (1.0-10.0) Eosinophils (%) (Auto) 0.0 % (0.0-3.0) Basophils (%) (Auto) 0.6 % (0.0-2.0) Erythrocyte Sedimentation Rate 9 MM/HR (0-30) Reticulocyte Count 1.3 % (0.5-2.0) Sodium Level 143 MMOL/L (136-145) Potassium Level 3.8 MMOL/L (3.5-5.1) Chloride Level 112 MMOL/L (98-107) H Carbon Dioxide Level 24 MMOL/L (21-32) Anion Gap 7 mmol/L (5-15) Blood Urea Nitrogen 13 mg/dL (7-18) Creatinine 1.2 MG/DL (0.55-1.30) Estimat Glomerular Filtration Rate 54.9 mL/min (>60) Glucose Level 78 MG/DL (74-106) Calcium Level 7.1 MG/DL (8.5-10.1) L Phosphorus Level 2.3 MG/DL (2.5-4.9) L Magnesium Level 2.0 MG/DL (1.8-2.4) Total Bilirubin 0.4 MG/DL (0.2-1.0) Aspartate Amino Transf (AST/SGOT) 40 U/L (15-37) H Alanine Aminotransferase (ALT/SGPT) 49 U/L (12-78) Alkaline Phosphatase 158 U/L (46-116) H Lactate Dehydrogenase 603 U/L (81-234) H Total Protein 5.7 G/DL (6.4-8.2) L Albumin 1.6 G/DL (3.4-5.0) L Globulin 4.1 g/dL Albumin/Globulin Ratio 0.4 (1.0-2.7) L Microbiology Date/Time Source Procedure Growth Status 02/03/19 08:20 Urine,Clean Catch Urine Culture - Preliminary Gram Negative Bacillus 1 Resulted Intake and Output 02/03/19 02/04/19 19:00 07:00 Intake Total 630 ml 120 ml Output Total 300 ml Balance 330 ml 120 ml Intake Oral 630 ml 120 ml Output Urine Total 300 ml # Voids 1 Objective General: No acute distress, awake and alert HEENT: NCAT, sclera anicteric, PERRL, EOMI. Neck: Supple, no significant jugular venous distention, Lungs: Fair inspiratory effort, no accessory muscle use, no Wheeze or Rales. Heart: Regular rate and rhythm, normal S1/S2, no murmur. Abdomen: soft, nontender, nondistended. Normoactive bowel sounds. / Rectal: Refused and deferred. Extremities: No Cyanosis , clubbing, Less Bilateral Legs edema. Neuro: A&O x 3, Able to move all extremities Skin: warm, no rashes or lesions Psych: Normal mood and affect Assessment/Plan Assessment/Plan 1. Acute PE, bilateral PE. 2. History of DVT of lower extremity. 3. Hypoalbuminemia. 4. Acute GNB UTI. 5. Thrombocytopenia. 6. Hypokalemia. PLAN: In telemetry. F/U laboratory Dr. Arnett from [facility]. Eliquis for DVT. Code status: Full Code and DC Planning in 2 days. Devonte Menjivar MD Feb 04, 2019 15:28
[2019-02-04 16:00] VITALS: BP 121/82
--- NOTE | 2019-02-04 19:42 | NUR ---
HAND-OFF: Report given to TATYANA TELLEZ.
--- NOTE | 2019-02-04 19:50 | NUR ---
NURSE NOTES: Received pt from TATYANA Styles. Pt awake, alert, and c/o pain. Bed in lowest position. Call light within reach. Will continue to monitor.
[2019-02-04 20:00] VITALS: BP 125/88
[2019-02-04] MEDS: cefTRIAXone 1 GM in D5W 55 ML IVPB SCH (20:47)
[2019-02-04] MEDS: HYDROcodone/Acetamin 5/325 tab ORAL PRN (20:48)
[2019-02-05] VITALS: BP 125/84
[2019-02-05 04:00] VITALS: BP 122/74
--- NOTE | 2019-02-05 07:19 | NUR ---
HAND-OFF: Report given to TATYANA Quiñonez. Pt stable.
--- NOTE | 2019-02-05 07:25 | NUR ---
NURSE NOTES: Nurse report given by TATYANA Ybarra. Patient's awake and eating breakfast in bed, AO x4, denies pain, no s/s of distress or SOB. Bed low and locked, call light within reach, side rails x 2, bed alarm is on, school bus monitor is applied. IV is saline locked, patent and asymptomatic. Will continue to monitor.
[2019-02-05 08:00] VITALS: BP 110/83
[2019-02-05 08:03] LABS: BASOPHILS % (AUTO) 0.6 % (0.0-2.0); EOSINOPHILS % (AUTO) 0.5 % (0.0-3.0); HEMATOCRIT 35.3 % (37.0-47.0); HEMOGLOBIN 11.4 G/DL (12.0-16.0); LYMPHOCYTES % (AUTO) 36.5 % (20.0-45.0); MEAN CORPUSCULAR VOLUME 99 FL (80-99); MONOCYTES % (AUTO) 4.2 % (1.0-10.0); NEUTROPHILS % (AUTO) 58.2 % (45.0-75.0); PLATELET COUNT 156 K/UL (150-450); RED BLOOD COUNT 3.56 M/UL (4.20-5.40); RED CELL DISTRIBUTION WIDTH 13.8 % (11.6-14.8); WHITE BLOOD COUNT 6.7 K/UL (4.8-10.8)
--- NOTE | 2019-02-05 08:05 | Pulmonology Progress Note ---
Assessment/Plan Problems: (1) Pulmonary embolism (2) DVT (deep venous thrombosis) (3) History of gastric bypass (4) H/O neck surgery (5) UTI (urinary tract infection) (6) Severe protein-calorie malnutrition (7) Hypophosphatemia Assessment/Plan proteus in Urine, pansensitive pt/ot Phos supplement on Eliquis still tachy abd US showing ascites and pleural effusion most likely secondary to hypoalbuminemia will get cxr for today Subjective ROS Limited/Unobtainable: No Constitutional: Reports: no symptoms HEENT: Repors: no symptoms Respiratory: Reports: no symptoms Allergies: Coded Allergies: CODEINE (Verified Allergy, Intermediate, 02/03/19) Objective Last 24 Hour Vital Signs Date Time Temp Pulse Resp B/P (MAP) Pulse Ox O2 Delivery O2 Flow Rate FiO2 02/05/19 04:00 76 02/05/19 04:00 98.2 77 18 122/74 (90) 98 02/05/19 00:00 98.0 68 18 125/84 (98) 100 02/05/19 00:00 69 02/04/19 21:00 Room Air 02/04/19 20:00 82 02/04/19 20:00 98.2 82 20 125/88 (100) 98 02/04/19 16:00 78 02/04/19 16:00 98.7 79 18 121/82 (95) 96 02/04/19 12:00 97.5 80 19 141/69 (93) 100 02/04/19 12:00 78 02/04/19 09:00 Room Air Intake and Output 02/04/19 02/05/19 18:59 06:59 Intake Total 420 ml Balance 420 ml Intake Oral 420 ml # Voids 2 1 # Bowel Movements 1 General Appearance: WD/WN HEENT: normocephalic, atraumatic Respiratory/Chest: chest wall non-tender, lungs clear Breasts: no masses Cardiovascular: normal peripheral pulses Abdomen: normal bowel sounds, soft, non tender Genitourinary: normal external genitalia Skin: no rash Microbiology Date/Time Source Procedure Growth Status 02/03/19 06:30 Nasal Nares MRSA Culture - Final NO METHICILLIN RESISTANT STAPH AUREUS... Complete 02/03/19 08:20 Urine,Clean Catch Urine Culture - Preliminary Proteus Mirabilis Strep Species, Gamma-Hemolytic Resulted 02/03/19 06:30 Rectum VRE Culture - Final NO VANCOMYCIN RESISTANT ENTEROCOCCUS ... Complete 02/03/19 06:30 Rectum - Final NO CARBAPENEM-RESISTANT ENTEROBACTERI... Complete Laboratory Tests 02/05/19 05:47: White Blood Count [Pending], Red Blood Count [Pending], Hemoglobin [Pending], Hematocrit [Pending], Mean Corpuscular Volume [Pending], Mean Corpuscular Hemoglobin [Pending], Mean Corpuscular Hemoglobin Concent [Pending], Red Cell Distribution Width [Pending], Platelet Count [Pending], Mean Platelet Volume [ Pending], Neutrophils (%) (Auto) [Pending], Lymphocytes (%) (Auto) [Pending], Monocytes (%) (Auto) [Pending], Eosinophils (%) (Auto) [Pending], Basophils (%) (Auto) [Pending], Erythrocyte Sedimentation Rate [Pending], Sodium Level [ Pending], Potassium Level [Pending], Chloride Level [Pending], Carbon Dioxide Level [Pending], Blood Urea Nitrogen [Pending], Creatinine [Pending], Estimat Glomerular Filtration Rate [Pending], Glucose Level [Pending], Calcium Level [ Pending], Phosphorus Level [Pending], Magnesium Level [Pending], Total Bilirubin [Pending], Aspartate Amino Transf (AST/SGOT) [Pending], Alanine Aminotransferase (ALT/SGPT) [Pending], Alkaline Phosphatase [Pending], C- Reactive Protein, Quantitative [Pending], Total Protein [Pending], Albumin [ Pending], Globulin [Pending] Current Medications Medications (Trade) Dose Ordered Sig/Ronnie Route PRN Reason Start Time Stop Time Status Last Admin Dose Admin Acetaminophen (Tylenol) 650 mg Q6H PRN ORAL Mild Pain/Temp > 100.5 02/03/19 02:30 03/05/19 02:29 02/04/19 09:09 Acetaminophen/ Hydrocodone Bitart ([place] 5/325) 1 tab Q6H PRN ORAL Severe Pain (Pain Scale 7-10) 02/03/19 02:30 02/10/19 02:29 02/04/19 20:48 Apixaban (Eliquis) 10 mg BID ORAL 02/03/19 09:00 03/05/19 08:59 02/04/19 17:20 Ceftriaxone Sodium 1 gm/ Dextrose 55 ml @ 110 mls/hr Q24H IVPB 02/03/19 21:00 02/10/19 02:59 02/04/19 20:47 Nga Arnett MD Feb 05, 2019 08:05
[2019-02-05 08:44] LABS: ALANINE AMINOTRANSFERASE 41 U/L (12-78); ALBUMIN 1.3 G/DL (3.4-5.0); ALBUMIN/GLOBULIN RATIO 0.4 (1.0-2.7); ALKALINE PHOSPHATASE 133 U/L (46-116); ANION GAP 7 mmol/L (5-15); ASPARTATE AMINO TRANSFERASE 34 U/L (15-37); BILIRUBIN,TOTAL 0.3 MG/DL (0.2-1.0); BLOOD UREA NITROGEN 11 mg/dL (7-18); CALCIUM 6.8 MG/DL (8.5-10.1); CARBON DIOXIDE 24 MMOL/L (21-32); CHLORIDE 113 MMOL/L (98-107); CREATININE 0.9 MG/DL (0.55-1.30); PHOSPHORUS 2.8 MG/DL (2.5-4.9); POTASSIUM 3.4 MMOL/L (3.5-5.1); SODIUM 144 MMOL/L (136-145)
[2019-02-05] MEDS: Eliquis 5mg tablet ORAL SCH ×2 (08:59→18:06)
--- NOTE | 2019-02-05 12:00 | NUR ---
NURSE NOTES: Showed Dr. Menjivar regarding patient's urine result from [facility] in the chart. MD aware and no new order at this time.
[2019-02-05 12:05] VITALS: BP 135/89
--- NOTE | 2019-02-05 12:30 | NUR ---
NURSE NOTES: Wound pictures are taken. Applied thera-honey and moisture barrier Paste on periwound; cover with Optifoam dressing. Applied Cavilon Skin Barrier to both heels and covered each heel with optifoam dressing.
--- NOTE | 2019-02-05 12:33 | Surgery Progress Note ---
Surgery Progress Note Subjective Additional Comments Patient seen and examined bedside. Sister is present. All questions answered. She states she is doing much better. Pain improving. Edema in lower extremities improving. Is getting significant improvement in mobility and right upper extremity and is moving around more. Objective Last 24 Hour Vital Signs Date Time Temp Pulse Resp B/P (MAP) Pulse Ox O2 Delivery O2 Flow Rate FiO2 02/05/19 12:05 98.3 88 20 135/89 (104) 97 02/05/19 09:00 Room Air 02/05/19 08:00 101 02/05/19 08:00 97.1 97 20 110/83 (92) 97 02/05/19 04:00 76 02/05/19 04:00 98.2 77 18 122/74 (90) 98 02/05/19 00:00 98.0 68 18 125/84 (98) 100 02/05/19 00:00 69 02/04/19 21:00 Room Air 02/04/19 20:00 82 02/04/19 20:00 98.2 82 20 125/88 (100) 98 02/04/19 16:00 78 02/04/19 16:00 98.7 79 18 121/82 (95) 96 I&O Intake and Output 02/04/19 02/05/19 19:00 07:00 Intake Total 300 ml Balance 300 ml Intake Oral 300 ml # Voids 2 1 # Bowel Movements 1 Dressing: dry Wound: clean Cardiovascular: RSR Respiratory: clear, decreased breath sounds Abdomen: soft, present bowel sounds, non-distended Extremities: edema, no tenderness, no cyanosis, other Laboratory Tests Test 02/05/19 05:47 White Blood Count 6.7 K/UL (4.8-10.8) Red Blood Count 3.56 M/UL (4.20-5.40) L Hemoglobin 11.4 G/DL (12.0-16.0) L Hematocrit 35.3 % (37.0-47.0) L Mean Corpuscular Volume 99 FL (80-99) Mean Corpuscular Hemoglobin 32.0 PG (27.0-31.0) H Mean Corpuscular Hemoglobin Concent 32.3 G/DL (32.0-36.0) Red Cell Distribution Width 13.8 % (11.6-14.8) Platelet Count 156 K/UL (150-450) Mean Platelet Volume 5.1 FL (6.5-10.1) L Neutrophils (%) (Auto) 58.2 % (45.0-75.0) Lymphocytes (%) (Auto) 36.5 % (20.0-45.0) Monocytes (%) (Auto) 4.2 % (1.0-10.0) Eosinophils (%) (Auto) 0.5 % (0.0-3.0) Basophils (%) (Auto) 0.6 % (0.0-2.0) Erythrocyte Sedimentation Rate 7 MM/HR (0-30) Sodium Level 144 MMOL/L (136-145) Potassium Level 3.4 MMOL/L (3.5-5.1) L Chloride Level 113 MMOL/L (98-107) H Carbon Dioxide Level 24 MMOL/L (21-32) Anion Gap 7 mmol/L (5-15) Blood Urea Nitrogen 11 mg/dL (7-18) Creatinine 0.9 MG/DL (0.55-1.30) Estimat Glomerular Filtration Rate > 60 mL/min (>60) Glucose Level 76 MG/DL (74-106) Calcium Level 6.8 MG/DL (8.5-10.1) L Phosphorus Level 2.8 MG/DL (2.5-4.9) Magnesium Level 2.0 MG/DL (1.8-2.4) Total Bilirubin 0.3 MG/DL (0.2-1.0) Aspartate Amino Transf (AST/SGOT) 34 U/L (15-37) Alanine Aminotransferase (ALT/SGPT) 41 U/L (12-78) Alkaline Phosphatase 133 U/L (46-116) H Troponin I 0.008 ng/mL (0.000-0.056) C-Reactive Protein, Quantitative < 0.4 mg/dL (0.00-0.90) Total Protein 4.8 G/DL (6.4-8.2) L Albumin 1.3 G/DL (3.4-5.0) L Globulin 3.5 g/dL Albumin/Globulin Ratio 0.4 (1.0-2.7) L Plan Problems: (1) Decubitus skin ulcer Assessment & Plan: Patient presented on admission with edema and wound complaining of pain in lower extremities for some time believed to be related to her DVT Full thickness stage 3 sacral pressure injury. Base of wound is moist with small amt Biofilm. Edges are moist and black and tender when minimally palpated. No exudate noted. Periwound skin is darker in tone. Both R and L heels are boggy with non-blanching erythema. Patient states that she has been having worsening limited mobility over the course the past few months. States that she can somewhat turn herself but her right side is weak and is unable to turn at all times. Is able to wiggle her toes and lower extremities but limited. Right upper extremity most limited. Denies history of prior stroke or events. States is been slowly worsening over the past some months. Notes history of osteoporosis. Lower extremity and upper extremity mobility is improving. Patient states she feels better. Is able to move more on her own and assist with turning. Tx.Plan: Cleanse Sacral wound with Saline. Apply TheraHoney. Apply Moisture Barrier Paste periwound. Cover with Optifoam drsg. Change every 3 days and prn. Apply Cavilon Skin Barrier to Both heels. Cover each heel with Optifoam Drsg. Change every 7 days and prn. Reposition at least every 2hours or as tolerated. Off-load heels with pillow. Nutritional supplementation will follow with care plan and recommendations thank you Junaid Hope Feb 05, 2019 12:32
--- NOTE | 2019-02-05 12:40 | Internal Med Progress Note ---
Subjective Physician Name Devonte Menjivar Attending Physician Devonte Menjivar MD Current Medications Medications (Trade) Dose Ordered Sig/Ronnie Route PRN Reason Start Time Stop Time Status Last Admin Dose Admin Acetaminophen (Tylenol) 650 mg Q6H PRN ORAL Mild Pain/Temp > 100.5 02/03/19 02:30 03/05/19 02:29 02/04/19 09:09 Acetaminophen/ Hydrocodone Bitart ([place] 5/325) 1 tab Q6H PRN ORAL Severe Pain (Pain Scale 7-10) 02/03/19 02:30 02/10/19 02:29 02/04/19 20:48 Apixaban (Eliquis) 10 mg BID ORAL 02/03/19 09:00 03/05/19 08:59 02/05/19 08:59 Ceftriaxone Sodium 1 gm/ Dextrose 55 ml @ 110 mls/hr Q24H IVPB 02/03/19 21:00 02/10/19 02:59 02/04/19 20:47 Allergies: Coded Allergies: CODEINE (Verified Allergy, Intermediate, 02/03/19) Subjective awake, alert, responsive, less SOB, No Chest pain, feeding better. Objective Last Vital Signs Date Time Temp Pulse Resp B/P (MAP) Pulse Ox O2 Delivery O2 Flow Rate FiO2 02/05/19 12:05 98.3 88 20 135/89 (104) 97 02/05/19 09:00 Room Air Laboratory Tests Test 02/05/19 05:47 White Blood Count 6.7 K/UL (4.8-10.8) Red Blood Count 3.56 M/UL (4.20-5.40) L Hemoglobin 11.4 G/DL (12.0-16.0) L Hematocrit 35.3 % (37.0-47.0) L Mean Corpuscular Volume 99 FL (80-99) Mean Corpuscular Hemoglobin 32.0 PG (27.0-31.0) H Mean Corpuscular Hemoglobin Concent 32.3 G/DL (32.0-36.0) Red Cell Distribution Width 13.8 % (11.6-14.8) Platelet Count 156 K/UL (150-450) Mean Platelet Volume 5.1 FL (6.5-10.1) L Neutrophils (%) (Auto) 58.2 % (45.0-75.0) Lymphocytes (%) (Auto) 36.5 % (20.0-45.0) Monocytes (%) (Auto) 4.2 % (1.0-10.0) Eosinophils (%) (Auto) 0.5 % (0.0-3.0) Basophils (%) (Auto) 0.6 % (0.0-2.0) Erythrocyte Sedimentation Rate 7 MM/HR (0-30) Sodium Level 144 MMOL/L (136-145) Potassium Level 3.4 MMOL/L (3.5-5.1) L Chloride Level 113 MMOL/L (98-107) H Carbon Dioxide Level 24 MMOL/L (21-32) Anion Gap 7 mmol/L (5-15) Blood Urea Nitrogen 11 mg/dL (7-18) Creatinine 0.9 MG/DL (0.55-1.30) Estimat Glomerular Filtration Rate > 60 mL/min (>60) Glucose Level 76 MG/DL (74-106) Calcium Level 6.8 MG/DL (8.5-10.1) L Phosphorus Level 2.8 MG/DL (2.5-4.9) Magnesium Level 2.0 MG/DL (1.8-2.4) Total Bilirubin 0.3 MG/DL (0.2-1.0) Aspartate Amino Transf (AST/SGOT) 34 U/L (15-37) Alanine Aminotransferase (ALT/SGPT) 41 U/L (12-78) Alkaline Phosphatase 133 U/L (46-116) H Troponin I 0.008 ng/mL (0.000-0.056) C-Reactive Protein, Quantitative < 0.4 mg/dL (0.00-0.90) Total Protein 4.8 G/DL (6.4-8.2) L Albumin 1.3 G/DL (3.4-5.0) L Globulin 3.5 g/dL Albumin/Globulin Ratio 0.4 (1.0-2.7) L Microbiology Date/Time Source Procedure Growth Status 02/03/19 06:30 Nasal Nares MRSA Culture - Final NO METHICILLIN RESISTANT STAPH AUREUS... Complete 02/03/19 08:20 Urine,Clean Catch Urine Culture - Preliminary Proteus Mirabilis Strep Species, Gamma-Hemolytic Resulted 02/03/19 06:30 Rectum VRE Culture - Final NO VANCOMYCIN RESISTANT ENTEROCOCCUS ... Complete 02/03/19 06:30 Rectum - Final NO CARBAPENEM-RESISTANT ENTEROBACTERI... Complete Intake and Output 02/04/19 02/05/19 19:00 07:00 Intake Total 300 ml Balance 300 ml Intake Oral 300 ml # Voids 2 1 # Bowel Movements 1 Objective General: No acute distress, awake and alert HEENT: NCAT, sclera anicteric, PERRL, EOMI. Neck: Supple, no significant jugular venous distention, Lungs: Fair inspiratory effort, no accessory muscle use, no Wheeze or Rales. Heart: Regular rate and rhythm, normal S1/S2, no murmur. Abdomen: soft, nontender, nondistended. Normoactive bowel sounds. / Rectal: Refused and deferred. Extremities: No Cyanosis , clubbing, Less Bilateral Legs edema. Neuro: A&O x 3, Able to move all extremities Skin: warm, no rashes or lesions Psych: Normal mood and affect Assessment/Plan Assessment/Plan 1. Acute PE, bilateral PE. 2. Acute Bilateral DVT of lower extremities 3. Hypoalbuminemia. 4. Acute Proteus Mirabilis UTI. 5. Thrombocytopenia. 6. Hypokalemia. PLAN: In telemetry. F/U laboratory Dr. Arnett from [facility]. Dinah for DVT. Code status: Full Code and DC Planning in AM. Abx: Devonte Bobby MD Feb 05, 2019 12:40
[2019-02-05 16:00] VITALS: BP 140/87
--- NOTE | 2019-02-05 19:23 | NUR ---
HAND-OFF: Report given to TATYANA Chacko. Patient's stable. Plan of care endorsed.
--- NOTE | 2019-02-05 19:36 | NUR ---
NURSE NOTES: Received report from TATYANA Quiñonez. Patient is awake lying semi-gao's; resting comfortably. No signs of acute distress noted; denies pain at this time. AOx4; able to make needs known. Checked IV site; patent and flushed. No erythema, bleeding, or infiltration noted. Wound dressing dry and intact. Bed at lowest position, brakes on, siderails up x3. Call light within reach. Will continue to monitor.
[2019-02-05 20:00] VITALS: BP 125/87
[2019-02-05] MEDS: HYDROcodone/Acetamin 5/325 tab ORAL PRN (20:34)
[2019-02-05] MEDS: cefTRIAXone 1 GM in D5W 55 ML IVPB SCH (20:35)
[2019-02-06] VITALS: BP 132/81
[2019-02-06] MEDS: HYDROcodone/Acetamin 5/325 tab ORAL PRN ×2 (02:41→20:09)
--- NOTE | 2019-02-06 03:25 | NUR ---
NURSE NOTES: Patient is asleep lying semi-gao's; resting comfortably. No signs of acute distress or pain noted at this time.
[2019-02-06 04:00] VITALS: BP 125/85
--- NOTE | 2019-02-06 07:42 | NUR ---
HAND-OFF: Report given to TATYANA Quiñonez. Patient is awake eating breakfast. In stable condition.
--- NOTE | 2019-02-06 07:45 | NUR ---
NURSE NOTES: Nurse report given by TATYANA Chacko. Patient's awake and eating breakfast in bed. Ao x 4, denies pain, no s/s of distress or SOB. Bed low and locked, call light within reach, side rails x 2, bed alarm armed. Edematous on bilateral extremities, sacral wound dressing is intact and clean. IV is saline locked, patent and asymptomatic. Will continue to monitor.
[2019-02-06 07:53] LABS: ANION GAP 3 mmol/L (5-15); BLOOD UREA NITROGEN 9 mg/dL (7-18); CALCIUM 6.7 MG/DL (8.5-10.1); CARBON DIOXIDE 28 MMOL/L (21-32); CHLORIDE 113 MMOL/L (98-107); CREATININE 0.8 MG/DL (0.55-1.30); POTASSIUM 3.6 MMOL/L (3.5-5.1); SODIUM 144 MMOL/L (136-145)
[2019-02-06 08:00] VITALS: BP 115/79
[2019-02-06] MEDS: Eliquis 5mg tablet ORAL SCH ×2 (09:06→17:25)
--- NOTE | 2019-02-06 11:37 | Surgery Progress Note ---
Surgery Progress Note Subjective Additional Comments no acute events comfortable pain resolving no n/v/f/c feeling well and states she wants to go home today. Objective Last 24 Hour Vital Signs Date Time Temp Pulse Resp B/P (MAP) Pulse Ox O2 Delivery O2 Flow Rate FiO2 02/06/19 09:00 Room Air 02/06/19 08:00 90 02/06/19 08:00 98.3 76 19 115/79 (91) 95 02/06/19 04:00 98.0 87 20 125/85 (98) 97 02/06/19 04:00 63 02/06/19 00:00 98.0 84 20 132/81 (98) 99 02/06/19 00:00 66 02/05/19 21:00 Room Air 02/05/19 20:00 98.2 80 20 125/87 (100) 98 02/05/19 20:00 74 02/05/19 16:00 79 02/05/19 16:00 98.2 74 20 140/87 (104) 95 02/05/19 12:05 98.3 88 20 135/89 (104) 97 02/05/19 12:00 93 I&O Intake and Output 02/05/19 02/06/19 18:59 06:59 Intake Total 830 ml 535 ml Balance 830 ml 535 ml Intake Oral 830 ml 480 ml IV Total 55 ml # Voids 1 1 # Bowel Movements 1 Dressing: dry Wound: clean Cardiovascular: RSR Respiratory: clear Abdomen: soft, flat, non-tender, present bowel sounds Extremities: edema, no cyanosis, other Laboratory Tests Test 02/06/19 06:20 Sodium Level 144 MMOL/L (136-145) Potassium Level 3.6 MMOL/L (3.5-5.1) Chloride Level 113 MMOL/L (98-107) H Carbon Dioxide Level 28 MMOL/L (21-32) Anion Gap 3 mmol/L (5-15) L Blood Urea Nitrogen 9 mg/dL (7-18) Creatinine 0.8 MG/DL (0.55-1.30) Estimat Glomerular Filtration Rate > 60 mL/min (>60) Glucose Level 75 MG/DL (74-106) Calcium Level 6.7 MG/DL (8.5-10.1) L Phosphorus Level 2.0 MG/DL (2.5-4.9) L Magnesium Level 2.0 MG/DL (1.8-2.4) Plan Problems: (1) Decubitus skin ulcer Assessment & Plan: Patient presented on admission with edema and wound complaining of pain in lower extremities for some time believed to be related to her DVT Full thickness stage 3 sacral pressure injury. Base of wound is moist with small amt Biofilm. Edges are moist and black and tender when minimally palpated. No exudate noted. Periwound skin is darker in tone. Both R and L heels are boggy with non-blanching erythema. Patient states that she has been having worsening limited mobility over the course the past few months. States that she can somewhat turn herself but her right side is weak and is unable to turn at all times. Is able to wiggle her toes and lower extremities but limited. Right upper extremity most limited. Denies history of prior stroke or events. States is been slowly worsening over the past some months. Notes history of osteoporosis. Lower extremity and upper extremity mobility is improving. Patient states she feels better. Is able to move more on her own and assist with turning. edema improving pain improving d/c planning Tx.Plan: Cleanse Sacral wound with Saline. Apply TheraHoney. Apply Moisture Barrier Paste periwound. Cover with Optifoam drsg. Change every 3 days and prn. Apply Cavilon Skin Barrier to Both heels. Cover each heel with Optifoam Drsg. Change every 7 days and prn. Reposition at least every 2hours or as tolerated. Off-load heels with pillow. Nutritional supplementation will follow with care plan and recommendations thank you Junaid Hope Feb 06, 2019 11:37
[2019-02-06 11:58] VITALS: BP 138/83
[2019-02-06] MEDS ORDERED: POTASSIUM PHOSPHATE IV SCH (13:00)
[2019-02-06] MEDS ORDERED: NS IV SCH (13:00)
--- NOTE | 2019-02-06 13:40 | Internal Med Progress Note ---
Subjective Physician Name Devonte Menjivar Attending Physician Devonte Menjivar MD Current Medications Medications (Trade) Dose Ordered Sig/Ronnie Route PRN Reason Start Time Stop Time Status Last Admin Dose Admin Acetaminophen (Tylenol) 650 mg Q6H PRN ORAL Mild Pain/Temp > 100.5 02/03/19 02:30 03/05/19 02:29 02/06/19 11:56 Acetaminophen/ Hydrocodone Bitart ([place] 5/325) 1 tab Q6H PRN ORAL Severe Pain (Pain Scale 7-10) 02/03/19 02:30 02/10/19 02:29 02/06/19 02:41 Apixaban (Eliquis) 10 mg BID ORAL 02/03/19 09:00 03/05/19 08:59 02/06/19 09:06 Ceftriaxone Sodium 1 gm/ Dextrose 55 ml @ 110 mls/hr Q24H IVPB 02/03/19 21:00 02/10/19 02:59 02/05/19 20:35 Potassium Phosphate 15 mm/ Sodium Chloride 255 ml @ 42.5 mls/hr ONCE IV 02/06/19 13:00 02/06/19 19:00 02/06/19 13:11 Allergies: Coded Allergies: CODEINE (Verified Allergy, Intermediate, 02/03/19) Subjective awake, alert, responsive, less SOB, No Chest pain, feeding better. Objective Last Vital Signs Date Time Temp Pulse Resp B/P (MAP) Pulse Ox O2 Delivery O2 Flow Rate FiO2 02/06/19 12:00 93 02/06/19 11:58 98.1 16 138/83 (101) 95 02/06/19 09:00 Room Air Laboratory Tests Test 02/06/19 06:20 Sodium Level 144 MMOL/L (136-145) Potassium Level 3.6 MMOL/L (3.5-5.1) Chloride Level 113 MMOL/L (98-107) H Carbon Dioxide Level 28 MMOL/L (21-32) Anion Gap 3 mmol/L (5-15) L Blood Urea Nitrogen 9 mg/dL (7-18) Creatinine 0.8 MG/DL (0.55-1.30) Estimat Glomerular Filtration Rate > 60 mL/min (>60) Glucose Level 75 MG/DL (74-106) Calcium Level 6.7 MG/DL (8.5-10.1) L Phosphorus Level 2.0 MG/DL (2.5-4.9) L Magnesium Level 2.0 MG/DL (1.8-2.4) Intake and Output 02/05/19 02/06/19 19:00 07:00 Intake Total 830 ml 535 ml Balance 830 ml 535 ml Intake Oral 830 ml 480 ml IV Total 55 ml # Voids 1 1 # Bowel Movements 1 Objective General: No acute distress, awake and alert HEENT: NCAT, sclera anicteric, PERRL, EOMI. Neck: Supple, no significant jugular venous distention, Lungs: Fair inspiratory effort, no accessory muscle use, no Wheeze or Rales. Heart: Regular rate and rhythm, normal S1/S2, no murmur. Abdomen: soft, nontender, nondistended. Normoactive bowel sounds. / Rectal: Refused and deferred. Extremities: No Cyanosis , clubbing, Less Bilateral Legs edema. Neuro: A&O x 3, Able to move all extremities Skin: warm, no rashes or lesions Psych: Normal mood and affect Assessment/Plan Assessment/Plan 1. Acute PE, bilateral PE. 2. Acute Bilateral DVT of lower extremities 3. Hypoalbuminemia. 4. Acute Proteus Mirabilis UTI. 5. Thrombocytopenia. 6. Hypokalemia. PLAN: In telemetry. F/U laboratory Dr. Arnett from [facility]. Eliquis for DVT. Code status: Full Code. DC Planning in AM. Abx: Devonte Bobby MD Feb 06, 2019 13:40
--- NOTE | 2019-02-06 15:19 | Pulmonology Progress Note ---
Assessment/Plan Problems: (1) Pulmonary embolism (2) DVT (deep venous thrombosis) (3) History of gastric bypass (4) H/O neck surgery (5) UTI (urinary tract infection) (6) Severe protein-calorie malnutrition (7) Hypophosphatemia Assessment/Plan proteus in Urine, pansensitive pt/ot Phos supplement on Eliquis still tachy abd US showing ascites and pleural effusion most likely secondary to hypoalbuminemia will get cxr for today Subjective ROS Limited/Unobtainable: Yes Constitutional: Reports: no symptoms HEENT: Repors: no symptoms Respiratory: Reports: no symptoms Allergies: Coded Allergies: CODEINE (Verified Allergy, Intermediate, 02/03/19) Objective Last 24 Hour Vital Signs Date Time Temp Pulse Resp B/P (MAP) Pulse Ox O2 Delivery O2 Flow Rate FiO2 02/06/19 12:00 93 02/06/19 11:58 98.1 86 16 138/83 (101) 95 02/06/19 09:00 Room Air 02/06/19 08:00 90 02/06/19 08:00 98.3 76 19 115/79 (91) 95 02/06/19 04:00 98.0 87 20 125/85 (98) 97 02/06/19 04:00 63 02/06/19 00:00 98.0 84 20 132/81 (98) 99 02/06/19 00:00 66 02/05/19 21:00 Room Air 02/05/19 20:00 98.2 80 20 125/87 (100) 98 02/05/19 20:00 74 02/05/19 16:00 79 02/05/19 16:00 98.2 74 20 140/87 (104) 95 Intake and Output 02/05/19 02/06/19 19:00 07:00 Intake Total 830 ml 535 ml Balance 830 ml 535 ml Intake Oral 830 ml 480 ml IV Total 55 ml # Voids 1 1 # Bowel Movements 1 General Appearance: WD/WN HEENT: normocephalic, atraumatic Respiratory/Chest: chest wall non-tender, lungs clear Breasts: no masses Cardiovascular: normal peripheral pulses, normal rate Abdomen: normal bowel sounds, soft, non tender Extremities: no cyanosis 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 Laboratory Tests 02/06/19 06:20: Sodium Level 144, Potassium Level 3.6, Chloride Level 113H, Carbon Dioxide Level 28, Anion Gap 3L, Blood Urea Nitrogen 9, Creatinine 0.8, Estimat Glomerular Filtration Rate > 60, Glucose Level 75, Calcium Level 6.7L, Phosphorus Level 2.0L, Magnesium Level 2.0 Current Medications Medications (Trade) Dose Ordered Sig/Ronnie Route PRN Reason Start Time Stop Time Status Last Admin Dose Admin Acetaminophen (Tylenol) 650 mg Q6H PRN ORAL Mild Pain/Temp > 100.5 02/03/19 02:30 03/05/19 02:29 02/06/19 11:56 Acetaminophen/ Hydrocodone Bitart ([place] 5/325) 1 tab Q6H PRN ORAL Severe Pain (Pain Scale 7-10) 02/03/19 02:30 02/10/19 02:29 02/06/19 02:41 Apixaban (Eliquis) 10 mg BID ORAL 02/03/19 09:00 03/05/19 08:59 02/06/19 09:06 Ceftriaxone Sodium 1 gm/ Dextrose 55 ml @ 110 mls/hr Q24H IVPB 02/03/19 21:00 02/10/19 02:59 02/05/19 20:35 Potassium Phosphate 15 mm/ Sodium Chloride 255 ml @ 42.5 mls/hr ONCE IV 02/06/19 13:00 02/06/19 19:00 02/06/19 13:11 Nga Arnett MD Feb 06, 2019 15:19
[2019-02-06 16:00] VITALS: BP 115/83
--- NOTE | 2019-02-06 19:25 | NUR ---
HAND-OFF: Report given to TATYANA Chacko. Plan of care endorsed. Patient's stable.
--- NOTE | 2019-02-06 19:34 | NUR ---
NURSE NOTES: Received report from TATYANA Quiñonez. Patient is awake lying semi-gao's; resting comfortably. No signs of acute distress noted; complains of pain. AOx4; able to make needs known. Checked IV site; patent and flushed. No erythema, bleeding, or infiltration noted. Wound dressing dry and intact. Bed at lowest position, brakes on, siderails up x3. Call light within reach. Will continue to monitor.
[2019-02-06 20:00] VITALS: BP 119/82
[2019-02-06] MEDS: cefTRIAXone 1 GM in D5W 55 ML IVPB SCH (20:08)
[2019-02-07] VITALS: BP 127/80
--- NOTE | 2019-02-07 03:19 | NUR ---
NURSE NOTES: Patient is asleep lying semi-gao's; resting comfortably. No signs of acute distress or pain noted at this time.
[2019-02-07 04:00] VITALS: BP 135/88
--- NOTE | 2019-02-07 07:39 | NUR ---
HAND-OFF: Report given to TATYANA Caal. Patient is awake using the bedside commode at this time. In stable condition.
--- NOTE | 2019-02-07 07:55 | NUR ---
NURSE NOTES: Received patient from Jeff Chacko. Patient awake in bed. No complain of pain or discomfort. fall precautions in place. call pollard within patients reached. will follow.
[2019-02-07 08:00] VITALS: BP 105/86
[2019-02-07] MEDS: Eliquis 5mg tablet ORAL SCH (09:02)
--- NOTE | 2019-02-07 10:28 | Pulmonology Progress Note ---
Assessment/Plan Problems: (1) Pulmonary embolism (2) DVT (deep venous thrombosis) (3) History of gastric bypass (4) H/O neck surgery (5) UTI (urinary tract infection) (6) Severe protein-calorie malnutrition (7) Hypophosphatemia Assessment/Plan proteus in Urine, pansensitive pt/ot Phos supplement\ cxr pending on Eliquis still tachy abd US showing ascites and pleural effusion most likely secondary to hypoalbuminemia Subjective ROS Limited/Unobtainable: No Constitutional: Reports: no symptoms HEENT: Repors: no symptoms Respiratory: Reports: no symptoms Allergies: Coded Allergies: CODEINE (Verified Allergy, Intermediate, 02/03/19) Objective Last 24 Hour Vital Signs Date Time Temp Pulse Resp B/P (MAP) Pulse Ox O2 Delivery O2 Flow Rate FiO2 02/07/19 08:00 98.1 112 20 105/86 (92) 97 02/07/19 04:00 98.2 88 18 135/88 (104) 98 02/07/19 04:00 79 02/07/19 00:00 98.5 73 20 127/80 (96) 97 02/07/19 00:00 79 02/06/19 21:00 Room Air 02/06/19 20:00 98.4 77 18 119/82 (94) 99 02/06/19 20:00 93 02/06/19 16:00 98.0 84 16 115/83 (94) 97 02/06/19 16:00 91 02/06/19 12:00 93 02/06/19 11:58 98.1 86 16 138/83 (101) 95 Intake and Output 02/06/19 02/07/19 19:00 07:00 Intake Total 490 ml 295 ml Balance 490 ml 295 ml Intake Oral 490 ml 240 ml IV Total 55 ml # Voids 3 1 # Bowel Movements 1 1 General Appearance: WD/WN HEENT: normocephalic, atraumatic Respiratory/Chest: chest wall non-tender, normal breath sounds Breasts: no masses Cardiovascular: normal rate Abdomen: soft, non tender, no organomegaly Genitourinary: normal external genitalia Extremities: no clubbing 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 Lymphatic: no neck adenopathy Current Medications Medications (Trade) Dose Ordered Sig/Ronnie Route PRN Reason Start Time Stop Time Status Last Admin Dose Admin Acetaminophen (Tylenol) 650 mg Q6H PRN ORAL Mild Pain/Temp > 100.5 02/03/19 02:30 03/05/19 02:29 02/06/19 11:56 Acetaminophen/ Hydrocodone Bitart ([place] 5/325) 1 tab Q6H PRN ORAL Severe Pain (Pain Scale 7-10) 02/03/19 02:30 02/10/19 02:29 02/06/19 20:09 Apixaban (Eliquis) 10 mg BID ORAL 02/03/19 09:00 03/05/19 08:59 02/07/19 09:02 Ceftriaxone Sodium 1 gm/ Dextrose 55 ml @ 110 mls/hr Q24H IVPB 02/03/19 21:00 02/10/19 02:59 02/06/19 20:08 Nga Arnett MD Feb 07, 2019 10:28
--- NOTE | 2019-02-07 10:40 | Cardiology Report ---
APPROVED REPORT EXAM: Two-dimensional and M-mode echocardiogram with Doppler and color Doppler. INDICATION S.O.B M-Mode DIMENSIONS IVSd0.8 (0.7-1.1cm)Left Atrium (MM)2.6 (1.6-4.0cm) LVDd4.8 (3.5-5.6cm)Aortic Root2.7 (2.0-3.7cm) PWd0.9 (0.7-1.1cm)Aortic Cusp Exc.1.9 (1.5-2.0cm) IVSs1.3 cm LVDs3.7 (2.5-4.0cm) PWs1.5 cm Normal left ventricular chamber size, systolic function and wall motion . Left ventricular ejection fraction estimated to be 60 %. No evidence of left ventricular hypertrophy. No evidence of pericardial effusion. All other cardiac chamber sizes are within normal limits. Focal aortic valve sclerosis with adequate cusp excursion. Thickened mitral valve leaflets with normal excursion. Mitral annulus and aortic root calcification. Normal pulmonic valve structure. Normal tricuspid valve structure. IVC at normal size with physiologic collapse. A color flow and spectral Doppler study was performed and revealed: No aortic insufficiency. Trace mitral regurgitation. Mitral diastolic velocities suggest reduced left ventricular relaxation c/w mild LV diastolic dysfunction (Grade I ). Mild tricuspid regurgitation. Tricuspid systolic velocities suggests peak right ventricular systolic pressure of 35 mmHg.
--- NOTE | 2019-02-07 11:45 | Diagnostic Imaging Report ---
Indication: Dyspnea Comparison: 09/14/2007 A single view chest radiograph was obtained. Findings: Lung volumes are low bilaterally. There is suggestion of a mild basal atelectasis. No pleural effusions are seen on this single frontal x-ray. Spinal rods noted in the lower part of the thoracic spine and lumbar spine. Surgical clips seen in the left-sided abdomen. Fusion hardware noted in the cervical spine. Calcified granuloma demonstrated in the left lung. IMPRESSION: Basal atelectasis. No pleural effusions seen on the frontal x-ray which is less sensitive than the lateral view. Other findings as above
--- NOTE | 2019-02-07 11:54 | NUR ---
*-* DISCHARGE PLANNING *-* PATIENT HAS BEEN REFERRED TO: [facility]
[2019-02-07 12:00] VITALS: BP 128/93
[2019-02-07] MEDS ORDERED: Tubing IV Secondary IV ONE (14:45)
--- NOTE | 2019-02-07 15:37 | NUR ---
NURSE NOTES: Patient discharge to [facility] per Dr. Arnett order. Report given to Ester West at the facility. Patient Left VSS. requested tylenol for Leg pain prior to discharge. patient's made aware of discharge. 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
--- NOTE | 2019-02-07 18:54 | Surgery Progress Note ---
Surgery Progress Note Subjective Additional Comments late entry as patient seen and examined this AM states she is well and ready to go home was too late to go home last night no n/v//f/c min pain edema improved comfortable Objective Last 24 Hour Vital Signs Date Time Temp Pulse Resp B/P (MAP) Pulse Ox O2 Delivery O2 Flow Rate FiO2 02/07/19 12:00 89 02/07/19 12:00 97.5 97 20 128/93 (105) 97 02/07/19 09:00 Room Air 02/07/19 08:00 98.1 112 20 105/86 (92) 97 02/07/19 08:00 129 02/07/19 04:00 98.2 88 18 135/88 (104) 98 02/07/19 04:00 79 02/07/19 00:00 98.5 73 20 127/80 (96) 97 02/07/19 00:00 79 02/06/19 21:00 Room Air 02/06/19 20:00 98.4 77 18 119/82 (94) 99 02/06/19 20:00 93 I&O Intake and Output 02/06/19 02/07/19 19:00 07:00 Intake Total 490 ml 295 ml Balance 490 ml 295 ml Intake Oral 490 ml 240 ml IV Total 55 ml # Voids 3 1 # Bowel Movements 1 1 Dressing: dry Wound: clean Cardiovascular: RSR Respiratory: clear Abdomen: soft, non-tender, present bowel sounds Extremities: edema, no tenderness, no cyanosis Plan Problems: (1) Decubitus skin ulcer Assessment & Plan: Patient presented on admission with edema and wound complaining of pain in lower extremities for some time believed to be related to her DVT Full thickness stage 3 sacral pressure injury. Base of wound is moist with small amt Biofilm. Edges are moist and black and tender when minimally palpated. No exudate noted. Periwound skin is darker in tone. Both R and L heels are boggy with non-blanching erythema. Patient states that she has been having worsening limited mobility over the course the past few months. States that she can somewhat turn herself but her right side is weak and is unable to turn at all times. Is able to wiggle her toes and lower extremities but limited. Right upper extremity most limited. Denies history of prior stroke or events. States is been slowly worsening over the past some months. Notes history of osteoporosis. Lower extremity and upper extremity mobility is improving. Patient states she feels better. Is able to move more on her own and assist with turning. edema improving pain improving d/c planning Tx.Plan: Cleanse Sacral wound with Saline. Apply TheraHoney. Apply Moisture Barrier Paste periwound. Cover with Optifoam drsg. Change every 3 days and prn. Apply Cavilon Skin Barrier to Both heels. Cover each heel with Optifoam Drsg. Change every 7 days and prn. Reposition at least every 2hours or as tolerated. Off-load heels with pillow. Nutritional supplementation will follow with care plan and recommendations thank you Junaid Hope Feb 07, 2019 18:54
--- NOTE | 2019-02-07 21:15 | Internal Med Progress Note ---
Subjective Physician Name Devonte Menjivar Attending Physician Devonte Menjivar MD Allergies: Coded Allergies: CODEINE (Verified Allergy, Intermediate, 02/03/19) Subjective awake, alert, responsive, less SOB, No Chest pain, feeling"Okay". Objective Last Vital Signs Date Time Temp Pulse Resp B/P (MAP) Pulse Ox O2 Delivery O2 Flow Rate FiO2 02/07/19 12:00 89 02/07/19 12:00 97.5 20 128/93 (105) 97 02/07/19 09:00 Room Air Intake and Output 02/06/19 02/07/19 19:00 07:00 Intake Total 490 ml 295 ml Balance 490 ml 295 ml Intake Oral 490 ml 240 ml IV Total 55 ml # Voids 3 1 # Bowel Movements 1 1 Objective General: No acute distress, awake and alert HEENT: NCAT, sclera anicteric, PERRL, EOMI. Neck: Supple, no significant jugular venous distention, Lungs: Fair inspiratory effort, no accessory muscle use, no Wheeze or Rales. Heart: Regular rate and rhythm, normal S1/S2, no murmur. Abdomen: soft, nontender, nondistended. Normoactive bowel sounds. / Rectal: Refused and deferred. Extremities: No Cyanosis , clubbing, Less Bilateral Legs edema. Neuro: A&O x 3, Able to move all extremities Skin: warm, no rashes or lesions Psych: Normal mood and affect Assessment/Plan Assessment/Plan 1. Acute PE, bilateral PE. 2. Acute Bilateral DVT of lower extremities 3. Hypoalbuminemia. 4. Acute Proteus Mirabilis UTI. 5. Thrombocytopenia. 6. Hypokalemia. PLAN: In telemetry. F/U laboratory Dr. Arnett from Pulmonary Critical Care. Eliquis for DVT. Code status: Full Code. DC to SNF today.. Abx: Devonte Bobby MD Feb 07, 2019 21:15
--- NOTE | 2019-02-08 09:10 | Discharge Summary ---
Discharge Summary Discharge Summary _ DATE OF ADMISSION: 02/02/2019 DATE OF DISCHARGE: 02/07/2019 DISCHARGED BY: Dr. Menjivar REASON FOR ADMISSION: 63 years old female with past medical history of cervical and lumbar fusion, history of morbid obesity, status post gastric bypass in 2013, osteoporosis, history of recent DVT in November 2018, initially presented to [facility] ED with complaint of shortness of breath and associated chest pain for the last 2 days. Patient was recently diagnosed with DVT lower extremity, but apparently patient was not on any anticoagulation. Patient also reported urinary tract infection symptoms with blood in the urine. She denied fever, but reported chills. She admitted to nausea , but no vomiting. No loss of consciousness. No seizure activity. No bowel or urine incontinence. No head or neck trauma. Shortly after initial evaluation in emergency department at [facility] patient was confirmed to have acute pulmonary emboli and subsequently was transferred to [facility] for further management and care. CONSULTANTS: pulmonary /critical care Dr. Arnett surgery Dr. Hope [facility] COURSE: Patient admitted to telemetry floor. Patient started on Eliquis. Per Diem Physical Therapist Assistant closely followed. Supplemental oxygen provided as needed to keep pulse oximetry above 92%. Echocardiogram revealed preserved ejection fraction of 60% with no evidence of left ventricular hypertrophy. No evidence of pericardial effusion. Right ventricular systolic pressure of 35. Pain management was addressed. Urine culture revealed Proteus and Enterococcus faecalis. Patient completed treatment for UTI. Abdominal ultrasound revealed nonvisualized gallbladder. No dilated bile ducts. Ascites. Atrophic slightly echogenic kidney , consistent with medical renal disease. Renal parameters were closely monitored, nephrotoxins were avoided. Renal parameters remained stable. Potassium was replaced. Troponin was negative. Telemetry demonstrated sinus rhythm. Platelet count was closely monitored and was stable upon discharge. Wound care for full-thickness stage III sacral decubitus ulcer present on admission , provided as per surgeon recommendation. Placement was arranged at [facility]. Patient was stable for transfer. FINAL DIAGNOSES: Acute bilateral PE History of DVT lower extremity Acute UTI Hypoalbuminemia Thrombocytopenia-resolved Hypokalemia-replaced Sacral decubitus ulcer stage 3, present on admission DISCHARGE MEDICATIONS: List of medication was sent to accepting facility DISCHARGE INSTRUCTIONS: [facility] facility. Follow up with medical doctor at the facility. I have been assigned to dictate discharge summary for this account. I was not involved in the patient's management. Lsahawn Parham NP Feb 08, 2019 09:10
== END 2019-02-07 15:30 | DRG 175 ==
LOC: 2E 23:12
DX: I26.99 Other pulmonary embolism without acute cor pulmonale (principal); L89.153 Pressure ulcer of sacral region, stage 3; E43 Unspecified severe protein-calorie malnutrition; N39.0 Urinary tract infection, site not specified; I82.403 Acute embolism and thrombosis of unspecified deep veins of lower extremity, bilateral; Z98.1 Arthrodesis status; Z98.84 Bariatric surgery status; Z88.6 Allergy status to analgesic agent; Z86.718 Personal history of other venous thrombosis and embolism; D69.6 Thrombocytopenia, unspecified; E87.6 Hypokalemia; Z91.14 Patient's other noncompliance with medication regimen; E83.39 Other disorders of phosphorus metabolism; B96.4 Proteus (mirabilis) (morganii) as the cause of diseases classified elsewhere
CPT/HCPCS: 36415; 71045; 76700; 80048; 80053; 81001; 83615; 83735; 84100; 84484; 85025; 85044; 85610; 85651; 85730; 86140; 87081; 87086; 87181; 93306; 93970; J8499

== ENCOUNTER 2019-02-15 08:21 | Inpatient (IN) | payer MEDICARE, MEDICAID ==
[~2019-02-15] VITALS: Ht 175.3 cm; Wt 81.2 kg
[~2019-02-15 08:21] MED LIST: FUROSEMIDE20 M1 ORAL; [UNRECOGNIZED DRUG - REMARK] ORAL
[2019-02-15 08:35] VITALS: BP 92/63
--- NOTE | 2019-02-15 08:35 | NUR ---
ED Nurse Note: Pt BIBA from [facility] d/t painful bilateral lower extremities d/t DVT and per EMS possible pleural effusion. Pt aao x 4 and nonambulatory d/t edema on bilateral lower extremities. Pt c/o pain 8/10 bilateral lower extremities with movement. Per EMS, pt NPO since midnight for possible thoracentesis. Pt placed in gown and night monitor. No acute distress at this time.
--- NOTE | 2019-02-15 08:35 | NUR ---
ED Nurse Note: Non-pitting edema noted on bilateral lower extremities and trunk. Pt also has slight non-pitting edema on bilateral upper extremities.
--- NOTE | 2019-02-15 08:38 | NUR ---
ED Nurse Note: X-ray at bedside.
--- NOTE | 2019-02-15 08:50 | Emergency Room Report ---
History of Present Illness General Chief Complaint: General Complaint Source: Patient, Medical Record, EMS Present Illness HPI 63-year-old female history of pulmonary embolism, bilateral DVT, pleural effusion, cervical fusion presents with evaluation for her pleural effusion, she has some mild shortness of breath no aggravating relieving factors severity is mild, no nausea no vomiting no fevers no chills patient presents for thoracentesis Allergies: Coded Allergies: CODEINE (Verified Allergy, Intermediate, 02/03/19) Patient History Past Medical History: see triage record Now: No Reviewed Nursing Documentation: PMH: Agreed; PSxH: Agreed Nursing Documentation-PMH Past Medical History: No History, Except For Hx Cardiac Problems: No - Bilat LE DVT, rt. hemiplegia Hx Cancer: No Hx Gastrointestinal Problems: Yes - Gastric bypass (2003), UTI Hx Neurological Problems: No - lumbar fusion Review of Systems All Other Systems: negative except mentioned in HPI Physical Exam Vital Signs Date Time Temp Pulse Resp B/P (MAP) Pulse Ox O2 Delivery O2 Flow Rate FiO2 02/15/19 08:23 97.9 105 20 84/58 (67) 96 Room Air Sp02 EP Interpretation: reviewed, normal General Appearance: no apparent distress, alert, cachetic, thin Head: normocephalic, atraumatic Eyes: bilateral eye PERRL, bilateral eye EOMI ENT: uvula midline, moist mucus membranes Neck: supple, thyroid normal, supple/symm/no masses Respiratory: no respiratory distress, no retraction, no accessory muscle use, decreased breath sounds - Decreased breath sounds in the left more than the right Cardiovascular #1: normal peripheral pulses, regular rate, rhythm, no edema, no gallop, no murmur Gastrointestinal: non tender, soft, no guarding, no rebound Musculoskeletal: normal inspection Neurologic: alert, oriented x3 Psychiatric: mood/affect normal Skin: no rash, warm/dry Medical Decision Making Diagnostic Impression: Primary Impression: Dyspnea Qualified Codes: R06.00 - Dyspnea, unspecified Additional Impressions: Pleural effusion on left DVT (deep venous thrombosis) Qualified Codes: I82.4Y3 - Acute embolism and thrombosis of unspecified deep veins of proximal lower extremity, bilateral ER Course 63-year-old female presents with left pleural effusion and some shortness of breath, differential diagnosis includes pleural effusion, pneumonia, empyema Will admit patient for eval of pleural effusion Preop labs ordered Patient to be admitted to Dr. Menjivar Laboratory Tests Test 02/15/19 08:57 White Blood Count 9.4 K/UL (4.8-10.8) Red Blood Count 4.91 M/UL (4.20-5.40) Hemoglobin 15.5 G/DL (12.0-16.0) Hematocrit 47.9 % (37.0-47.0) H Mean Corpuscular Volume 98 FL (80-99) Mean Corpuscular Hemoglobin 31.7 PG (27.0-31.0) H Mean Corpuscular Hemoglobin Concent 32.4 G/DL (32.0-36.0) Red Cell Distribution Width 13.9 % (11.6-14.8) Platelet Count 416 K/UL (150-450) Mean Platelet Volume 5.0 FL (6.5-10.1) L Neutrophils (%) (Auto) 73.2 % (45.0-75.0) Lymphocytes (%) (Auto) 23.4 % (20.0-45.0) Monocytes (%) (Auto) 2.2 % (1.0-10.0) Eosinophils (%) (Auto) 0.6 % (0.0-3.0) Basophils (%) (Auto) 0.7 % (0.0-2.0) Prothrombin Time 12.0 SEC (9.30-11.50) H Prothrombin Time INR 1.1 (0.9-1.1) PTT 28 SEC (23-33) Sodium Level 145 MMOL/L (136-145) Potassium Level 3.7 MMOL/L (3.5-5.1) Chloride Level 112 MMOL/L (98-107) H Carbon Dioxide Level 20 MMOL/L (21-32) L Anion Gap 13 mmol/L (5-15) Blood Urea Nitrogen 15 mg/dL (7-18) Creatinine 1.0 MG/DL (0.55-1.30) Estimate Glomerular Filtration Rate > 60 mL/min (>60) Glucose Level 117 MG/DL (74-106) H Calcium Level 6.9 MG/DL (8.5-10.1) L Phosphorus Level Pending Magnesium Level Pending Total Bilirubin Pending Aspartate Amino Transferase (AST) Pending Alanine Aminotransferase (ALT) Pending Alkaline Phosphatase Pending Total Protein Pending Albumin Pending Globulin Pending EKG Diagnostic Results EKG Time: 08:24 EP Interpretation: NSR, rate 99, QTc 462, no acute ST elevations, normal axis Rhythm Strip Diag. Results Rhythm Strip Time: 08:49 EP Interpretation: yes Rate: 102 Rhythm: other - Sinus tachycardia Chest X-Ray Diagnostic Results Chest X-Ray Diagnostic Results : Chest X-Ray Ordered: Yes # of Views/Limited/Complete: 1 View Indication: Shortness of Breath EP Interpretation: Yes Interpretation: other - Left pleural effusion Impression: Other - Left pleural effusion Electronically Signed by: Enmanuel Helm MD Last Vital Signs Date Time Temp Pulse Resp B/P (MAP) Pulse Ox O2 Delivery O2 Flow Rate FiO2 02/15/19 08:23 97.9 105 20 84/58 (67) 96 Room Air Disposition: ADMITTED INPATIENT Condition: Stable Enmanuel Helm MD Feb 15, 2019 08:50
--- NOTE | 2019-02-15 08:55 | NUR ---
ED Nurse Note: blood samples dropped off to lab.
[2019-02-15 09:12] LABS: BASOPHILS % (AUTO) 0.7 % (0.0-2.0); EOSINOPHILS % (AUTO) 0.6 % (0.0-3.0); HEMATOCRIT 47.9 % (37.0-47.0); HEMOGLOBIN 15.5 G/DL (12.0-16.0); LYMPHOCYTES % (AUTO) 23.4 % (20.0-45.0); MEAN CORPUSCULAR VOLUME 98 FL (80-99); MONOCYTES % (AUTO) 2.2 % (1.0-10.0); NEUTROPHILS % (AUTO) 73.2 % (45.0-75.0); PLATELET COUNT 416 K/UL (150-450); RED BLOOD COUNT 4.91 M/UL (4.20-5.40); RED CELL DISTRIBUTION WIDTH 13.9 % (11.6-14.8); WHITE BLOOD COUNT 9.4 K/UL (4.8-10.8)
[2019-02-15 09:19] LABS: INR 1.1 (0.9-1.1)
--- NOTE | 2019-02-15 09:35 | Diagnostic Imaging Report ---
Indication: Cough Technique: One view of the chest Comparison: 02/07/2019 Findings: There is some atelectasis at the right lung base. This is increased since prior exam. There is increasing left pleural fluid. Calcified granuloma is again demonstrated in the left midlung. There is some atelectasis in the right suprahilar region. Thoracolumbar fusion hardware is again demonstrated. Surgical clips are seen in the left upper quadrant. Impression: Increasing left pleural effusion and right basilar atelectasis, since prior study of 02/07/2019 New right suprahilar atelectasis
[2019-02-15 09:41] LABS: ANION GAP 13 mmol/L (5-15); BLOOD UREA NITROGEN 15 mg/dL (7-18); CALCIUM 6.9 MG/DL (8.5-10.1); CARBON DIOXIDE 20 MMOL/L (21-32); CHLORIDE 112 MMOL/L (98-107); POTASSIUM 3.7 MMOL/L (3.5-5.1); SODIUM 145 MMOL/L (136-145)
[2019-02-15 09:46] LABS: ALANINE AMINOTRANSFERASE 45 U/L (12-78); ALBUMIN 1.4 G/DL (3.4-5.0); ALBUMIN/GLOBULIN RATIO 0.3 (1.0-2.7); ALKALINE PHOSPHATASE 234 U/L (46-116); ASPARTATE AMINO TRANSFERASE 50 U/L (15-37); BILIRUBIN,TOTAL 0.6 MG/DL (0.2-1.0); PHOSPHORUS 2.6 MG/DL (2.5-4.9)
--- NOTE | 2019-02-15 10:07 | NUR ---
ED Nurse Note: Pt c/o sudden epigastric abdominal pain 12/23, ERMD notified.
--- NOTE | 2019-02-15 10:10 | NUR ---
ED Nurse Note: MRSA and VRE culture collected. Belongings list completed.
[2019-02-15] MEDS ORDERED: Hydromorphone 0.5mg/0.5ml inj IVP ONE (10:15)
[2019-02-15] MEDS ORDERED: VITAMIN C500 M1 ORAL (10:48)
[2019-02-15] MEDS ORDERED: MELATONIN 3 MG1 EAC1 PO (10:48)
[2019-02-15] MEDS ORDERED: prostat sf PO (10:48)
[2019-02-15] MEDS ORDERED: ZINC SULFATE220 M1 ORAL (10:48)
[2019-02-15] MEDS ORDERED: NORCO 5-325 TA1 EACH ORAL (10:48)
[2019-02-15] MEDS ORDERED: MVI WITH MINERALS PO (10:48)
[2019-02-15] MEDS ORDERED: ACETAMINOPHEN325 M1 ORAL (10:48)
[2019-02-15] MEDS ORDERED: LACTAID3000 UNI2 PO (10:48)
[2019-02-15] MEDS ORDERED: ARTIFICIAL TEAR15 ML BOTH EYES (10:48)
[2019-02-15] MEDS ORDERED: ELIQUIS5 MG PO (10:48)
[2019-02-15] MEDS ORDERED: FOSAMAX70 MG ORAL (10:48)
[2019-02-15 10:58] VITALS: BP 100/59
--- NOTE | 2019-02-15 11:08 | NUR ---
ED Nurse Note: Report given to TATYANA Tan in telemetry.
[2019-02-15] MEDS ORDERED: Morphine Sulfate 2mg/ml Inj(IV/IM USE ONLY) IVP PRN ×2 (11:15→17:30)
[2019-02-15] MEDS ORDERED: LORazepam Inj 2mg/ml 1ml IV PRN (11:15)
[2019-02-15] MEDS ORDERED: Miralax 17gm pkt ORAL PRN (11:15)
[2019-02-15] MEDS ORDERED: Zolpidem 5mg tab ORAL PRN (11:15)
--- NOTE | 2019-02-15 11:20 | NUR ---
ED Nurse Note: Patient transferred to telemetry floor via gurney with registered nurse cardiac telemetry and 2 RNs in stable condition.
--- NOTE | 2019-02-15 11:40 | NUR ---
NURSE NOTES: Patient is admitted from ED via gurney. Room air. AAO x 4. c/o of pain on all over the body. IV on R AC 22g intact and patent. Heart monitor on. Belongings were accounted for. Orientation on the unit given. Picture on the wound taken. Admission orders were put in by Dr. Arnett. Side rails x 2. Bed in the lowest, locked, and alarm on. Call light within reach. Will continue to monitor.
[2019-02-15 12:00] VITALS: BP 116/66
[2019-02-15] MEDS ORDERED: Heparin 25,000u/D5W 500ml 500 ML IV SCH ×2 (12:21→21:00)
--- NOTE | 2019-02-15 12:30 | Consultation ---
History of Present Illness General Chief Complaint: General Complaint Present Illness Allergies: Coded Allergies: CODEINE (Verified Allergy, Intermediate, 02/03/19) Medication History Scheduled Alendronate Sodium* (Fosamax*), 70 MG ORAL ONCE A WEEK, (Reported) Apixaban (Eliquis), 10 MG PO BID, (Reported) Ascorbic Acid* (Vitamin C*), 500 MG ORAL DAILY, (Reported) Dextran 70/Hypromellose (Artificial Tears Eye Drops*), 1 DROP BOTH EYES BID, ( Reported) Melatonin/Pyridoxine HCl (B6) (Melatonin 3 mg Tablet), 1 EACH PO QHS, (Reported) Zinc Sulfate (Zinc Sulfate*), 220 MG ORAL DAILY, (Reported) [mvi with minerals], 1 TAB PO DAILY, (Reported) [prostat sf], 30 ML PO DAILY, (Reported) Scheduled PRN Acetaminophen* (Acetaminophen 325MG Tablet*), 650 MG ORAL Q6H PRN for Prn Headache/Temp > 101, (Reported) Hydrocodone Bit/Acetaminophen 5-325* ([place] 5-325*), 1 TAB ORAL Q6H PRN for For Pain, (Reported) Lactase (Lactaid), 3 TAB-CAP PO for lactose intol, (Reported) Discontinued Medications Furosemide* (Lasix*), 20 MG ORAL DAILY, (Reported) Discontinued Reason: MD discontinued med [med for OP], Unknown Dose ORAL ONCE A WEEK, (Reported) Discontinued Reason: MD discontinued med Patient History Healthcare decision maker Resuscitation status Advanced Directive on File Physical Exam Last 24 Hour Vital Signs Date Time Temp Pulse Resp B/P (MAP) Pulse Ox O2 Delivery O2 Flow Rate FiO2 02/15/19 12:01 Room Air 02/15/19 11:38 97.0 92 19 98/63 100 Room Air 02/15/19 10:58 97.2 110 18 100/59 100 Room Air 02/15/19 10:44 97.5 02/15/19 08:35 102 16 Room Air 02/15/19 08:35 97.9 102 16 92/63 96 Room Air 02/15/19 08:23 97.9 105 20 84/58 (67) 96 Room Air Laboratory Tests Test 02/15/19 08:57 02/15/19 11:30 White Blood Count 9.4 K/UL (4.8-10.8) Red Blood Count 4.91 M/UL (4.20-5.40) Hemoglobin 15.5 G/DL (12.0-16.0) Hematocrit 47.9 % (37.0-47.0) H Mean Corpuscular Volume 98 FL (80-99) Mean Corpuscular Hemoglobin 31.7 PG (27.0-31.0) H Mean Corpuscular Hemoglobin Concent 32.4 G/DL (32.0-36.0) Red Cell Distribution Width 13.9 % (11.6-14.8) Platelet Count 416 K/UL (150-450) Mean Platelet Volume 5.0 FL (6.5-10.1) L Neutrophils (%) (Auto) 73.2 % (45.0-75.0) Lymphocytes (%) (Auto) 23.4 % (20.0-45.0) Monocytes (%) (Auto) 2.2 % (1.0-10.0) Eosinophils (%) (Auto) 0.6 % (0.0-3.0) Basophils (%) (Auto) 0.7 % (0.0-2.0) Prothrombin Time 12.0 SEC (9.30-11.50) H Prothromb Time International Ratio 1.1 (0.9-1.1) Activated Partial Thromboplast Time 28 SEC (23-33) 29 SEC (23-33) Sodium Level 145 MMOL/L (136-145) Potassium Level 3.7 MMOL/L (3.5-5.1) Chloride Level 112 MMOL/L (98-107) H Carbon Dioxide Level 20 MMOL/L (21-32) L Anion Gap 13 mmol/L (5-15) Blood Urea Nitrogen 15 mg/dL (7-18) Creatinine 1.0 MG/DL (0.55-1.30) Estimat Glomerular Filtration Rate > 60 mL/min (>60) Glucose Level 117 MG/DL (74-106) H Calcium Level 6.9 MG/DL (8.5-10.1) L Phosphorus Level 2.6 MG/DL (2.5-4.9) Magnesium Level 1.8 MG/DL (1.8-2.4) Total Bilirubin 0.6 MG/DL (0.2-1.0) Aspartate Amino Transf (AST/SGOT) 50 U/L (15-37) H Alanine Aminotransferase (ALT/SGPT) 45 U/L (12-78) Alkaline Phosphatase 234 U/L (46-116) H Total Protein 6.0 G/DL (6.4-8.2) L Albumin 1.4 G/DL (3.4-5.0) L Globulin 4.6 g/dL Albumin/Globulin Ratio 0.3 (1.0-2.7) L Height (Feet): 5 Height (Inches): 9.00 Weight (Pounds): 174 Medications Current Medications Medications (Trade) Dose Ordered Sig/Ronnie Route PRN Reason Start Time Stop Time Status Last Admin Dose Admin Acetaminophen (Tylenol) 650 mg Q4H PRN ORAL fever 02/15/19 11:15 03/17/19 11:14 Dextrose (Dextrose 50%) 25 ml Q30M PRN IV Hypoglycemia 02/15/19 11:15 03/17/19 11:14 Dextrose (Dextrose 50%) 50 ml Q30M PRN IV Hypoglycemia 02/15/19 11:15 03/17/19 11:14 Heparin Sodium/ Dextrose 500 ml @ 26.127 mls/ hr ADJUST PER PROTOCOL IV 02/15/19 12:21 03/17/19 12:20 Lorazepam (Ativan 2mg/ml 1ml) 0.5 mg Q4H PRN IV For Anxiety 02/15/19 11:15 02/22/19 11:14 Morphine Sulfate (Morphine Sulfate) 1 mg Q4H PRN IVP For Pain 02/15/19 11:15 02/22/19 11:14 Ondansetron HCl (Zofran) 4 mg Q6H PRN IVP Nausea & Vomiting 02/15/19 11:15 03/17/19 11:14 Polyethylene Glycol (Miralax) 17 gm HSPRN PRN ORAL Constipation 02/15/19 11:15 03/17/19 11:14 Zolpidem Tartrate (Ambien) 5 mg HSPRN PRN ORAL Insomnia 02/15/19 11:15 02/22/19 11:14 Nga Arnett MD Feb 15, 2019 12:30
[2019-02-15 16:00] VITALS: BP 100/66
[2019-02-15] MEDS ORDERED: Morphine Sulfate 4mg/ml Inj (IV USE ONLY) IVP PRN (16:30)
--- NOTE | 2019-02-15 17:26 | History & Physical ---
History and Physical History & Physicial Dictated for Int Med-Dr Menjivar no. [id number]. Navdeep Phipps MD Feb 15, 2019 17:26
[2019-02-15] MEDS: Morphine Sulfate 4mg/ml Inj (IV USE ONLY) IVP PRN ×2 (18:12→22:58)
--- NOTE | 2019-02-15 19:19 | NUR ---
HAND-OFF: Report given to TATYANA Chacko and TATYANA De Los Santos.
--- NOTE | 2019-02-15 19:28 | NUR ---
NURSE NOTES: Received report from TATYANA Tan. Patient is awake lying semi-gao's; resting comfortably. No signs of acute distress noted; complains of pain. AOx4; able to make needs known. Checked IV site, lines, and IV rate; patent and running. Heparin drip running at 18 units/kg/hr or 26.127 mls/hr. No erythema, bleeding, or infiltration noted. Bed at lowest position, brakes on, siderails up x3. Call light within reach. Will continue to monitor.
--- NOTE | 2019-02-15 19:57 | NUR ---
NURSE NOTES: Held Heparin drip due to PTT being over 150. Will restart after 60 minutes.
[2019-02-15 20:42] VITALS: BP 104/64
--- NOTE | 2019-02-15 20:42 | NUR ---
NURSE NOTES: Notified Dr. Menjivar and Dr. Arnett regarding patient's thoracentesis procedure in AM, but patient is on a Heparin drip. Received new order from Dr. Menjivra to hold Heparin drip at midnight. Noted and carried out.
--- NOTE | 2019-02-15 20:49 | NUR ---
NURSE NOTES: Received new order from Dr. Arnett to cancel patient's thoracentesis procedure in AM. Also made Dr. Menjivar aware of the thoracentesis cancellation. Noted and carried out.
--- NOTE | 2019-02-15 22:45 | History and Physical Report ---
DATE OF ADMISSION: 02/15/2019 CHIEF COMPLAINT: The patient is a 63-year-old female, who presents with a chief complaint of shortness of breath. HISTORY OF PRESENT ILLNESS: The patient was admitted to [facility] from February 02, 2019 to February 08, 2019. The patient has a history of deep venous thrombosis of the bilateral lower extremities, which was diagnosed in November of 2018. The patient refused anticoagulation medication at that time. The patient presented to [facility] on February 02, 2019 with shortness of breath. The patient was diagnosed with bilateral pulmonary embolism. The patient was started on Eliquis. The patient states history of present illness began yesterday February 14, 2019. The patient became acutely short of breath. The patient was worried that she had another pulmonary embolism. The patient was admitted with shortness of breath to rule out new pulmonary embolism. REVIEW OF SYSTEMS: CONSTITUTIONAL: The patient denies weight loss or weight gain. The patient denies fevers or chills. HEENT: The patient denies ear or throat pain. The patient denies headache. CARDIOVASCULAR: The patient denies palpitation or chest pain. CHEST: The patient complains of shortness of breath as above. The patient denies wheezes. ABDOMEN: The patient denies nausea, vomiting, diarrhea, or constipation. GENITOURINARY: The patient denies dysuria or increased frequency of urination. NEUROMUSCULAR: The patient denies seizures or generalized weakness. PAST MEDICAL HISTORY: Significant for, 1. Deep venous thrombosis of bilateral lower extremities in November of 2018, the patient refused anticoagulation. 2. Pulmonary embolism in January of 2019. PAST SURGICAL HISTORY: Significant for: 1. Cervical spine fusion. 2. Lumbar spine fusion. 3. Gastric bypass in 2003. CURRENT MEDICATIONS: 1. Fosamax 70 mg p.o. every week. 2. Apixaban 10 mg p.o. twice daily. 3. Vitamin C 500 mg p.o. daily. 4. Oral 5/325 mg one tablet p.o. q.6 h. p.r.n. 5. Lactate 3000 units p.o. 3 times daily. 6. Zinc sulfate 220 mg p.o. daily. 7. Multivitamin p.o. daily. ALLERGIES: Codeine which causes nausea. SOCIAL HISTORY: The patient is and is currently resident of [facility]. The patient denies tobacco or alcohol use. PHYSICAL EXAMINATION: VITAL SIGNS: Temperature 97.9, respirations 20, pulse 105, and blood pressure 84/58. GENERAL: The patient is well-developed and well-nourished female, in no apparent distress. HEENT: Eyes, pupils are equal and responsive to light and accommodation. Extraocular movements are intact. NECK: Supple without lymphadenopathy. CHEST: Decreased breath sounds at bilateral bases with expiratory wheezes bilaterally. ABDOMINAL: Soft, nontender, and nondistended. Positive bowel sounds. No evidence of hepatosplenomegaly. Currently, no rebound or guarding noted. EXTREMITIES: Negative for clubbing, cyanosis, or edema. RECTAL/GENITAL: Not performed. NEUROLOGIC: Cranial nerves II through XII are grossly intact without focal deficits. Motor strength is 5/5 bilaterally. Deep tendon reflexes are 2+ plantar. LABORATORY STUDIES: WBC 9.4, hemoglobin 13.5, hematocrit 47.9, and platelets 416,000. Sodium 145, potassium 3.7, chloride 112, CO2 20, BUN 15, creatinine 1.0, and glucose 117. AST elevated at 50 and alkaline phosphatase elevated at 234. Protime 12.0, INR 1.1, and PTT 28. A chest x-ray was reported as new right suprahilar atelectasis with left pleural effusion. ASSESSMENT: This is a 63-year-old female. 1. Shortness of breath. 2. Left pleural effusion. 3. Right parahilar atelectasis. 4. History of pulmonary embolism. 5. History of deep venous thrombosis of the bilateral lower extremities. 6. Shortness of breath/left pulmonary effusion. A Pulmonary consultation has been obtained with Dr. Nga Arnett. We will follow recommendation of Pulmonary. The patient may require thoracentesis during this hospitalization. 7. Right atelectasis. As above, a Pulmonary consultation has been obtained with Dr. Nga Arnett. 8. Pulmonary embolism, diagnosed in January 2019. Continue apixaban as above. 9. Deep venous thrombosis of bilateral lower extremities. Continue apixaban as above. Navdeep Phipps M.D. DR: MARY JOB#: [id number] CC:
--- NOTE | 2019-02-15 23:34 | NUR ---
NURSE NOTES: Attempted to establish new IV access for Lasix drip since patient is on Heparin drip, but unsuccessful. Will reattempt at a later time.
[2019-02-16] VITALS (10 sets, daily range): BP systolic 42–113; BP diastolic 18–77
[2019-02-16] MEDS: Morphine Sulfate 4mg/ml Inj (IV USE ONLY) IVP PRN ×2 (03:00→09:24)
--- NOTE | 2019-02-16 04:08 | NUR ---
NURSE NOTES: Meet, conduit mechanic, is unable to draw PTT at this time as patient is hardstick.
--- NOTE | 2019-02-16 05:31 | NUR ---
NURSE NOTES: Per Brenda, tobacco sorter, will attempt to draw PTT.
[2019-02-16 06:12] LABS: HEMATOCRIT 38.1 % (37.0-47.0); HEMOGLOBIN 12.4 G/DL (12.0-16.0); MEAN CORPUSCULAR VOLUME 96 FL (80-99); PLATELET COUNT 368 K/UL (150-450); RED BLOOD COUNT 3.95 M/UL (4.20-5.40); RED CELL DISTRIBUTION WIDTH 13.8 % (11.6-14.8); WHITE BLOOD COUNT 2.7 K/UL (4.8-10.8)
--- NOTE | 2019-02-16 07:00 | NUR ---
NURSE NOTES: Heparin drip held per protocol since PTT level is still over 150.
[2019-02-16 07:13] LABS: ALANINE AMINOTRANSFERASE 33 U/L (12-78); ALBUMIN/GLOBULIN RATIO 0.3 (1.0-2.7); ALKALINE PHOSPHATASE 212 U/L (46-116); ANION GAP 10 mmol/L (5-15); ASPARTATE AMINO TRANSFERASE 43 U/L (15-37); BILIRUBIN,TOTAL 0.6 MG/DL (0.2-1.0); BLOOD UREA NITROGEN 17 mg/dL (7-18); CALCIUM 6.2 MG/DL (8.5-10.1); CARBON DIOXIDE 20 MMOL/L (21-32); CHLORIDE 112 MMOL/L (98-107); CHOLESTEROL 68 MG/DL (< 200); CREATININE 1.1 MG/DL (0.55-1.30); HDL CHOLESTEROL 39 MG/DL (40-60); POTASSIUM 3.3 MMOL/L (3.5-5.1); SODIUM 142 MMOL/L (136-145); TRIGLYCERIDES 75 MG/DL (30-150)
[2019-02-16] MEDS ORDERED: Heparin 25,000u/D5W 500ml 500 ML IV SCH ×3 (07:15→16:15)
--- NOTE | 2019-02-16 07:21 | NUR ---
HAND-OFF: Report given to TATYANA Lucero. Patient is awake lying semi-gao's; resting comfortably. In stable condition.
--- NOTE | 2019-02-16 07:25 | NUR ---
NURSE NOTES: Received report from Ginna/RN, Patient is awake, Lying semi-gao's, resting comfortably. On room air, No acute distress/SOB noted. Able to make needs known, Denies pain at this time. Sinus rhythm on the monitor. IV on Left AC, and Right FA patent, No infiltration or bleeding noted. Bed in low position and locked, Bed alarm engaged. Call light within reach, Encouraged to use call light when needed. Will continue plan of care.
[2019-02-16] MEDS ORDERED: Morphine Sulfate 4mg/ml Inj (IV USE ONLY) IVP PRN (13:30)
--- NOTE | 2019-02-16 13:45 | Consultation ---
History of Present Illness General Date patient seen: Feb 16, 2019 Chief Complaint: General Complaint Present Illness HPI 63-year-old female with hx of pulmonary embolism, s/p gastric bypass surgery, severe protein deficiency, bilateral DVT,on chronic anticoagulation, presented with evaluation of worsening pleural effusion. She has some shortness of breath. she is admitted for further management. Allergies: Coded Allergies: CODEINE (Verified Allergy, Intermediate, 02/03/19) Medication History Scheduled Alendronate Sodium* (Fosamax*), 70 MG ORAL ONCE A WEEK, (Reported) Apixaban (Eliquis), 10 MG PO BID, (Reported) Ascorbic Acid* (Vitamin C*), 500 MG ORAL DAILY, (Reported) Dextran 70/Hypromellose (Artificial Tears Eye Drops*), 1 DROP BOTH EYES BID, ( Reported) Melatonin/Pyridoxine HCl (B6) (Melatonin 3 mg Tablet), 1 EACH PO QHS, (Reported) Zinc Sulfate (Zinc Sulfate*), 220 MG ORAL DAILY, (Reported) [mvi with minerals], 1 TAB PO DAILY, (Reported) [prostat sf], 30 ML PO DAILY, (Reported) Scheduled PRN Acetaminophen* (Acetaminophen 325MG Tablet*), 650 MG ORAL Q6H PRN for Prn Headache/Temp > 101, (Reported) Hydrocodone Bit/Acetaminophen 5-325* ([place] 5-325*), 1 TAB ORAL Q6H PRN for For Pain, (Reported) Lactase (Lactaid), 3 TAB-CAP PO for lactose intol, (Reported) Discontinued Medications Furosemide* (Lasix*), 20 MG ORAL DAILY, (Reported) Discontinued Reason: discontinued med [med for OP], Unknown Dose ORAL ONCE A WEEK, (Reported) Discontinued Reason: MD discontinued med Patient History Healthcare decision maker Resuscitation status Full Code Advanced Directive on File Past Medical/Surgical History Past Medical/Surgical History: (1) Pulmonary embolism (2) Severe protein-calorie malnutrition (3) DVT (deep venous thrombosis) (4) History of gastric bypass Review of Systems Constitutional: Reports: no symptoms Eye: Reports: no symptoms All Other Systems: negative except mentioned in HPI Physical Exam General Appearance: WD/WN, no apparent distress Lines, tubes and drains: peripheral HEENT: normocephalic, atraumatic Neck: non-tender, normal alignment Respiratory/Chest: chest wall non-tender, lungs clear Breasts: no masses Cardiovascular/Chest: normal peripheral pulses, normal rate Abdomen: normal bowel sounds, non tender Genitourinary/Rectal: normal genital exam Extremities: normal range of motion Skin Exam: normal pigmentation Last 24 Hour Vital Signs Date Time Temp Pulse Resp B/P (MAP) Pulse Ox O2 Delivery O2 Flow Rate FiO2 02/16/19 09:54 98.7 02/16/19 09:00 Room Air 02/16/19 08:00 119 02/16/19 08:00 98.7 83 20 113/77 (89) 93 02/16/19 04:00 99.0 108 18 95/64 (74) 96 02/16/19 03:25 106 02/16/19 00:00 98.3 109 18 102/71 (81) 95 02/15/19 23:45 103 02/15/19 21:00 Room Air 02/15/19 20:42 98.9 102 18 104/64 (77) 98 02/15/19 20:03 95 02/15/19 16:00 85 02/15/19 16:00 98.3 95 18 100/66 (77) 95 02/15/19 16:00 85 Intake and Output 02/15/19 02/16/19 18:59 06:59 Intake Total 1464.508 ml 751.466 ml Balance 1464.508 ml 751.466 ml Intake Oral 360 ml 480 ml IV Total 1104.508 ml 271.466 ml # Voids 1 # Bowel Movements 1 Laboratory Tests Test 02/15/19 18:30 02/16/19 06:00 Activated Partial Thromboplast Time > 150 SEC (23-33) *H > 150 SEC (23-33) *H White Blood Count 2.7 K/UL (4.8-10.8) #L Red Blood Count 3.95 M/UL (4.20-5.40) L Hemoglobin 12.4 G/DL (12.0-16.0) Hematocrit 38.1 % (37.0-47.0) Mean Corpuscular Volume 96 FL (80-99) Mean Corpuscular Hemoglobin 31.5 PG (27.0-31.0) H Mean Corpuscular Hemoglobin Concent 32.6 G/DL (32.0-36.0) Red Cell Distribution Width 13.8 % (11.6-14.8) Platelet Count 368 K/UL (150-450) Mean Platelet Volume 5.0 FL (6.5-10.1) L Neutrophils (%) (Auto) % (45.0-75.0) Lymphocytes (%) (Auto) % (20.0-45.0) Monocytes (%) (Auto) % (1.0-10.0) Eosinophils (%) (Auto) % (0.0-3.0) Basophils (%) (Auto) % (0.0-2.0) Differential Total Cells Counted 100 Neutrophils % (Manual) 50 % (45-75) Lymphocytes % (Manual) 35 % (20-45) Monocytes % (Manual) 3 % (1-10) Eosinophils % (Manual) 0 % (0-3) Basophils % (Manual) 0 % (0-2) Band Neutrophils 12 % (0-8) H Platelet Estimate Adequate Platelet Morphology Normal Sodium Level 142 MMOL/L (136-145) Potassium Level 3.3 MMOL/L (3.5-5.1) L Chloride Level 112 MMOL/L (98-107) H Carbon Dioxide Level 20 MMOL/L (21-32) L Anion Gap 10 mmol/L (5-15) Blood Urea Nitrogen 17 mg/dL (7-18) Creatinine 1.1 MG/DL (0.55-1.30) Estimat Glomerular Filtration Rate > 60 mL/min (>60) Glucose Level 106 MG/DL (74-106) Calcium Level 6.2 MG/DL (8.5-10.1) L Total Bilirubin 0.6 MG/DL (0.2-1.0) Aspartate Amino Transf (AST/SGOT) 43 U/L (15-37) H Alanine Aminotransferase (ALT/SGPT) 33 U/L (12-78) Alkaline Phosphatase 212 U/L (46-116) H Total Protein 4.7 G/DL (6.4-8.2) L Albumin 1.0 G/DL (3.4-5.0) L Globulin 3.7 g/dL Albumin/Globulin Ratio 0.3 (1.0-2.7) L Triglycerides Level 75 MG/DL (30-150) Cholesterol Level 68 MG/DL (< 200) LDL Cholesterol 12 mg/dL (<100) HDL Cholesterol 39 MG/DL (40-60) L Cholesterol/HDL Ratio 1.7 (3.3-4.4) L Thyroid Stimulating Hormone (TSH) 3.264 uiU/mL (0.358-3.740) Height (Feet): 5 Height (Inches): 9.00 Weight (Pounds): 179 Medications Current Medications Medications (Trade) Dose Ordered Sig/Ronnie Route PRN Reason Start Time Stop Time Status Last Admin Dose Admin Acetaminophen (Tylenol) 650 mg Q4H PRN ORAL fever 02/15/19 11:15 03/17/19 11:14 02/16/19 13:33 Dextrose (Dextrose 50%) 25 ml Q30M PRN IV Hypoglycemia 02/15/19 11:15 03/17/19 11:14 Dextrose (Dextrose 50%) 50 ml Q30M PRN IV Hypoglycemia 02/15/19 11:15 03/17/19 11:14 Furosemide 100 mg/ Dextrose 110 ml @ 11 mls/hr Q10H IV 02/16/19 12:00 03/18/19 11:59 02/16/19 12:23 Heparin Sodium/ Dextrose 500 ml @ 14.515 mls/ hr ADJUST PER PROTOCOL IV 02/16/19 08:00 03/18/19 07:59 02/16/19 09:24 Lorazepam (Ativan 2mg/ml 1ml) 0.5 mg Q4H PRN IV For Anxiety 02/15/19 11:15 02/22/19 11:14 Morphine Sulfate (Morphine Sulfate) 2 mg Q4H PRN IVP Moderate Pain (Pain Scale 4-6) 02/15/19 17:30 02/22/19 17:29 Morphine Sulfate (Morphine Sulfate) 4 mg Q2H PRN IVP Severe Pain (Pain Scale 7-10) 02/16/19 13:30 02/23/19 13:29 Ondansetron HCl (Zofran) 4 mg Q6H PRN IVP Nausea & Vomiting 02/15/19 11:15 03/17/19 11:14 Polyethylene Glycol (Miralax) 17 gm HSPRN PRN ORAL Constipation 02/15/19 11:15 03/17/19 11:14 Zolpidem Tartrate (Ambien) 5 mg HSPRN PRN ORAL Insomnia 02/15/19 11:15 02/22/19 11:14 Assessment/Plan Problem List: (1) Pleural effusion on left ICD Codes: J90 - Pleural effusion, not elsewhere classified SNOMED: 20805901 (2) Pulmonary embolism ICD Codes: I26.99 - Other pulmonary embolism without acute cor pulmonale SNOMED: 19578959 (3) History of gastric bypass ICD Codes: Z98.84 - Bariatric surgery status SNOMED: 123863946 (4) Severe protein-calorie malnutrition ICD Codes: E43 - Unspecified severe protein-calorie malnutrition SNOMED: 161177287, 165758680, 798561149 (5) Anasarca ICD Codes: R60.1 - Generalized edema SNOMED: 893020636, 515708151 Assessment/Plan: diuretics stop oral anticoagulants check electrolytes Cardiology evaluation symptomatic treatment Nga Arnett MD Feb 16, 2019 13:45
--- NOTE | 2019-02-16 13:48 | Pulmonology Progress Note ---
Assessment/Plan Problems: (1) Sepsis (2) Pleural effusion on left (3) Pulmonary embolism (4) History of gastric bypass (5) Severe protein-calorie malnutrition (6) Anasarca Assessment/Plan diuretics, watch output stop oral anticoagulants check electrolytes Cardiology evaluation symptomatic treatment sofia culture ID evaluation Subjective ROS Limited/Unobtainable: No Constitutional: Reports: no symptoms HEENT: Repors: no symptoms Allergies: Coded Allergies: CODEINE (Verified Allergy, Intermediate, 02/03/19) Objective Last 24 Hour Vital Signs Date Time Temp Pulse Resp B/P (MAP) Pulse Ox O2 Delivery O2 Flow Rate FiO2 02/16/19 09:54 98.7 02/16/19 09:00 Room Air 02/16/19 08:00 119 02/16/19 08:00 98.7 83 20 113/77 (89) 93 02/16/19 04:00 99.0 108 18 95/64 (74) 96 02/16/19 03:25 106 02/16/19 00:00 98.3 109 18 102/71 (81) 95 02/15/19 23:45 103 02/15/19 21:00 Room Air 02/15/19 20:42 98.9 102 18 104/64 (77) 98 02/15/19 20:03 95 02/15/19 16:00 85 02/15/19 16:00 98.3 95 18 100/66 (77) 95 02/15/19 16:00 85 Intake and Output 02/15/19 02/16/19 18:59 06:59 Intake Total 1464.508 ml 751.466 ml Balance 1464.508 ml 751.466 ml Intake Oral 360 ml 480 ml IV Total 1104.508 ml 271.466 ml # Voids 1 # Bowel Movements 1 General Appearance: cachetic HEENT: normocephalic, atraumatic Respiratory/Chest: chest wall non-tender, lungs clear Breasts: no masses Cardiovascular: normal peripheral pulses, normal rate Abdomen: normal bowel sounds, soft, non tender Genitourinary: normal external genitalia Extremities: no cyanosis, other - massive Neurologic/Psychiatric: causticiser II-XII grossly normal Laboratory Tests 02/15/19 18:30: Activated Partial Thromboplast Time > 150*H 02/16/19 06:00: Activated Partial Thromboplast Time > 150*H, White Blood Count 2.7#L, Red Blood Count 3.95L, Hemoglobin 12.4, Hematocrit 38.1, Mean Corpuscular Volume 96, Mean Corpuscular Hemoglobin 31.5H, Mean Corpuscular Hemoglobin Concent 32.6, Red Cell Distribution Width 13.8, Platelet Count 368, Mean Platelet Volume 5.0L, Neutrophils (%) (Auto) , Lymphocytes (%) (Auto) , Monocytes (%) (Auto) , Eosinophils (%) (Auto) , Basophils (%) (Auto) , Differential Total Cells Counted 100, Neutrophils % (Manual) 50, Lymphocytes % (Manual) 35, Monocytes % ( Manual) 3, Eosinophils % (Manual) 0, Basophils % (Manual) 0, Band Neutrophils 12H, Platelet Estimate Adequate, Platelet Morphology Normal, Sodium Level 142, Potassium Level 3.3L, Chloride Level 112H, Carbon Dioxide Level 20L, Anion Gap 10, Blood Urea Nitrogen 17, Creatinine 1.1, Estimat Glomerular Filtration Rate > 60, Glucose Level 106, Calcium Level 6.2L, Total Bilirubin 0.6, Aspartate Amino Transf (AST/SGOT) 43H, Alanine Aminotransferase (ALT/SGPT) 33, Alkaline Phosphatase 212H, Total Protein 4.7L, Albumin 1.0L, Globulin 3.7, Albumin/ Globulin Ratio 0.3L, Triglycerides Level 75, Cholesterol Level 68, LDL Cholesterol 12, HDL Cholesterol 39L, Cholesterol/HDL Ratio 1.7L, Thyroid Stimulating Hormone (TSH) 3.264 Current Medications Medications (Trade) Dose Ordered Sig/Ronnie Route PRN Reason Start Time Stop Time Status Last Admin Dose Admin Acetaminophen (Tylenol) 650 mg Q4H PRN ORAL fever 02/15/19 11:15 03/17/19 11:14 02/16/19 13:33 Dextrose (Dextrose 50%) 25 ml Q30M PRN IV Hypoglycemia 02/15/19 11:15 03/17/19 11:14 Dextrose (Dextrose 50%) 50 ml Q30M PRN IV Hypoglycemia 02/15/19 11:15 03/17/19 11:14 Furosemide 100 mg/ Dextrose 110 ml @ 11 mls/hr Q10H IV 02/16/19 12:00 03/18/19 11:59 02/16/19 12:23 Heparin Sodium/ Dextrose 500 ml @ 14.515 mls/ hr ADJUST PER PROTOCOL IV 02/16/19 08:00 03/18/19 07:59 02/16/19 09:24 Lorazepam (Ativan 2mg/ml 1ml) 0.5 mg Q4H PRN IV For Anxiety 02/15/19 11:15 02/22/19 11:14 Morphine Sulfate (Morphine Sulfate) 2 mg Q4H PRN IVP Moderate Pain (Pain Scale 4-6) 02/15/19 17:30 02/22/19 17:29 Morphine Sulfate (Morphine Sulfate) 4 mg Q2H PRN IVP Severe Pain (Pain Scale 7-10) 02/16/19 13:30 02/23/19 13:29 Ondansetron HCl (Zofran) 4 mg Q6H PRN IVP Nausea & Vomiting 02/15/19 11:15 03/17/19 11:14 Polyethylene Glycol (Miralax) 17 gm HSPRN PRN ORAL Constipation 02/15/19 11:15 03/17/19 11:14 Zolpidem Tartrate (Ambien) 5 mg HSPRN PRN ORAL Insomnia 02/15/19 11:15 02/22/19 11:14 Nga Arnett MD Feb 16, 2019 13:48
--- NOTE | 2019-02-16 14:04 | Consultation ---
History of Present Illness General Date patient seen: Feb 16, 2019 Chief Complaint: General Complaint Present Illness HPI 63 y/o F with hx of PE, s/p gastric bypass 2003, severe protein deficiency, b/l DVT (11/2018- refused AC at that time) and PE (01/2019) on chronic anticoagulation, pleural effusion, s/p cervical and lumbar fusion, SNF resident presented to ED on 02/15 with SOB. Denied nausea, vomiting, f/c. Allergies: Coded Allergies: CODEINE (Verified Allergy, Intermediate, 02/03/19) Medication History Scheduled Alendronate Sodium* (Fosamax*), 70 MG ORAL ONCE A WEEK, (Reported) Apixaban (Eliquis), 10 MG PO BID, (Reported) Ascorbic Acid* (Vitamin C*), 500 MG ORAL DAILY, (Reported) Dextran 70/Hypromellose (Artificial Tears Eye Drops*), 1 DROP BOTH EYES BID, ( Reported) Melatonin/Pyridoxine HCl (B6) (Melatonin 3 mg Tablet), 1 EACH PO QHS, (Reported) Zinc Sulfate (Zinc Sulfate*), 220 MG ORAL DAILY, (Reported) [mvi with minerals], 1 TAB PO DAILY, (Reported) [prostat sf], 30 ML PO DAILY, (Reported) Scheduled PRN Acetaminophen* (Acetaminophen 325MG Tablet*), 650 MG ORAL Q6H PRN for Prn Headache/Temp > 101, (Reported) Hydrocodone Bit/Acetaminophen 5-325* ([place] 5-325*), 1 TAB ORAL Q6H PRN for For Pain, (Reported) Lactase (Lactaid), 3 TAB-CAP PO for lactose intol, (Reported) Discontinued Medications Furosemide* (Lasix*), 20 MG ORAL DAILY, (Reported) Discontinued Reason: discontinued med [med for OP], Unknown Dose ORAL ONCE A WEEK, (Reported) Discontinued Reason: MD discontinued med Patient History Healthcare decision maker Resuscitation status Full Code Advanced Directive on File Patient History Narrative Pmhx: as above Shx: The patient is and is currently resident of [facility] [place]. The patient denies tobacco or alcohol use. Fhx: non contributory Review of Systems All Other Systems: negative except mentioned in HPI Physical Exam Physical Exam Narrative General Appearance: WD/WN, no apparent distress Lines, tubes and drains: peripheral HEENT: normocephalic, atraumatic Neck: non-tender, normal alignment Respiratory/Chest: chest wall non-tender, lungs clear Breasts: no masses Cardiovascular/Chest: normal peripheral pulses, normal rate Abdomen: normal bowel sounds, non tender Genitourinary/Rectal: normal genital exam Extremities: normal range of motion Skin Exam: normal pigmentation Last 24 Hour Vital Signs Date Time Temp Pulse Resp B/P (MAP) Pulse Ox O2 Delivery O2 Flow Rate FiO2 02/16/19 09:54 98.7 02/16/19 09:00 Room Air 02/16/19 08:00 119 02/16/19 08:00 98.7 83 20 113/77 (89) 93 02/16/19 04:00 99.0 108 18 95/64 (74) 96 02/16/19 03:25 106 02/16/19 00:00 98.3 109 18 102/71 (81) 95 02/15/19 23:45 103 02/15/19 21:00 Room Air 02/15/19 20:42 98.9 102 18 104/64 (77) 98 02/15/19 20:03 95 02/15/19 16:00 85 02/15/19 16:00 98.3 95 18 100/66 (77) 95 02/15/19 16:00 85 Intake and Output 02/15/19 02/16/19 18:59 06:59 Intake Total 1464.508 ml 751.466 ml Balance 1464.508 ml 751.466 ml Intake Oral 360 ml 480 ml IV Total 1104.508 ml 271.466 ml # Voids 1 # Bowel Movements 1 Laboratory Tests Test 02/15/19 18:30 02/16/19 06:00 Activated Partial Thromboplast Time > 150 SEC (23-33) *H > 150 SEC (23-33) *H White Blood Count 2.7 K/UL (4.8-10.8) #L Red Blood Count 3.95 M/UL (4.20-5.40) L Hemoglobin 12.4 G/DL (12.0-16.0) Hematocrit 38.1 % (37.0-47.0) Mean Corpuscular Volume 96 FL (80-99) Mean Corpuscular Hemoglobin 31.5 PG (27.0-31.0) H Mean Corpuscular Hemoglobin Concent 32.6 G/DL (32.0-36.0) Red Cell Distribution Width 13.8 % (11.6-14.8) Platelet Count 368 K/UL (150-450) Mean Platelet Volume 5.0 FL (6.5-10.1) L Neutrophils (%) (Auto) % (45.0-75.0) Lymphocytes (%) (Auto) % (20.0-45.0) Monocytes (%) (Auto) % (1.0-10.0) Eosinophils (%) (Auto) % (0.0-3.0) Basophils (%) (Auto) % (0.0-2.0) Differential Total Cells Counted 100 Neutrophils % (Manual) 50 % (45-75) Lymphocytes % (Manual) 35 % (20-45) Monocytes % (Manual) 3 % (1-10) Eosinophils % (Manual) 0 % (0-3) Basophils % (Manual) 0 % (0-2) Band Neutrophils 12 % (0-8) H Platelet Estimate Adequate Platelet Morphology Normal Sodium Level 142 MMOL/L (136-145) Potassium Level 3.3 MMOL/L (3.5-5.1) L Chloride Level 112 MMOL/L (98-107) H Carbon Dioxide Level 20 MMOL/L (21-32) L Anion Gap 10 mmol/L (5-15) Blood Urea Nitrogen 17 mg/dL (7-18) Creatinine 1.1 MG/DL (0.55-1.30) Estimat Glomerular Filtration Rate > 60 mL/min (>60) Glucose Level 106 MG/DL (74-106) Calcium Level 6.2 MG/DL (8.5-10.1) L Total Bilirubin 0.6 MG/DL (0.2-1.0) Aspartate Amino Transf (AST/SGOT) 43 U/L (15-37) H Alanine Aminotransferase (ALT/SGPT) 33 U/L (12-78) Alkaline Phosphatase 212 U/L (46-116) H Total Protein 4.7 G/DL (6.4-8.2) L Albumin 1.0 G/DL (3.4-5.0) L Globulin 3.7 g/dL Albumin/Globulin Ratio 0.3 (1.0-2.7) L Triglycerides Level 75 MG/DL (30-150) Cholesterol Level 68 MG/DL (< 200) LDL Cholesterol 12 mg/dL (<100) HDL Cholesterol 39 MG/DL (40-60) L Cholesterol/HDL Ratio 1.7 (3.3-4.4) L Thyroid Stimulating Hormone (TSH) 3.264 uiU/mL (0.358-3.740) Height (Feet): 5 Height (Inches): 9.00 Weight (Pounds): 179 Medications Current Medications Medications (Trade) Dose Ordered Sig/Ronnie Route PRN Reason Start Time Stop Time Status Last Admin Dose Admin Acetaminophen (Tylenol) 650 mg Q4H PRN ORAL fever 02/15/19 11:15 03/17/19 11:14 02/16/19 13:33 Dextrose (Dextrose 50%) 25 ml Q30M PRN IV Hypoglycemia 02/15/19 11:15 03/17/19 11:14 Dextrose (Dextrose 50%) 50 ml Q30M PRN IV Hypoglycemia 02/15/19 11:15 03/17/19 11:14 Furosemide 100 mg/ Dextrose 110 ml @ 11 mls/hr Q10H IV 02/16/19 12:00 03/18/19 11:59 02/16/19 12:23 Heparin Sodium/ Dextrose 500 ml @ 14.515 mls/ hr ADJUST PER PROTOCOL IV 02/16/19 08:00 03/18/19 07:59 02/16/19 09:24 Lorazepam (Ativan 2mg/ml 1ml) 0.5 mg Q4H PRN IV For Anxiety 02/15/19 11:15 02/22/19 11:14 Morphine Sulfate (Morphine Sulfate) 2 mg Q4H PRN IVP Moderate Pain (Pain Scale 4-6) 02/15/19 17:30 02/22/19 17:29 Morphine Sulfate (Morphine Sulfate) 4 mg Q2H PRN IVP Severe Pain (Pain Scale 7-10) 02/16/19 13:30 02/23/19 13:29 Ondansetron HCl (Zofran) 4 mg Q6H PRN IVP Nausea & Vomiting 02/15/19 11:15 03/17/19 11:14 Polyethylene Glycol (Miralax) 17 gm HSPRN PRN ORAL Constipation 02/15/19 11:15 03/17/19 11:14 Zolpidem Tartrate (Ambien) 5 mg HSPRN PRN ORAL Insomnia 02/15/19 11:15 02/22/19 11:14 Assessment/Plan Assessment/Plan: Abx: None Assessment: Dyspnea Worsening pleural effusion -02/15 CXR: Increasing left pleural effusion and right basilar atelectasis, since prior study of 02/07/2019. New right suprahilar atelectasis Afebrile Mild leukopenia s/p gastric bypass 2003 severe protein deficiency hx of b/l DVT (11/2018- refused AC at that time) and PE (01/2019) on chronic anticoagulation hx of pleural effusion s/p cervical and lumbar fusion SNF resident Plan: -Continue to monitor off abx unless febrile, leukocytosis and/or HD unstable -f/u cx -Monitor CBC/CMP, temperatures -aspiration precautions -sp cx, influenza -CXR am Thank you for consulting [facility]. Will continue to follow along with you. Discussed with Cely Sargent M.D. Feb 16, 2019 14:04
--- NOTE | 2019-02-16 14:07 | NUR ---
NURSE NOTES:WOUND CARE NOTES:Pt presented on admission with wound L trochanter which is resolving. Pt stated she developed wound at rehab facility. Pt advised no open wound noted site is slightly red but dry. Pt also noted to be edematous at hips. Partial thickness pressure injury R buttocks. Base of wound is moist and viable. Edges are macerated with surrounding non-blanching erythema. Pt stated site is tender when minimally palpated.(L)0.8cm x (W)1cm. Darker skin tone without induration noted to Sacrum and L buttocks. Pt also verbalized tenderness when Sacrum and L buttocks palpated. Bilat lower ext edematous. Both heels are boggy with non-blanching erythema. Both heels tender when minimally palpated. Pt requires extensive asst with bed mobility. Pt placed on an APM/ROSA mattress overlay. Pt positioned on side with pillow and both heels floated off bed. Tx.Plan:Apply Moisture Barrier Paste to R buttocks. Cover with Optifoam drsg . Change every 3 days and prn. Apply Moisture Barrier Paste to Sacrum and L buttocks. Cover with Optifoam drsg.Change every 3 days and prn. Apply Cavilon to both heels. Cover each heel with Optifoam drsg. Change every 7 days and prn Reposition at least every 2hours or as tolerated. Off-load heels with pillow.
--- NOTE | 2019-02-16 15:39 | NUR ---
RD ASSESSMENT & RECOMMENDATIONS SEE CARE ACTIVITY FOR COMPLETE ASSESSMENT DAILY ESTIMATED NEEDS: Needs based on Pulmonary, wounds; 72kg 25-30 kcals/kg 7033-5985 total kcals 1.25-1.5 g protein/kg 90-108 g total protein 25-30 mL/kg 8365-4289 total fluid mLs NUTRITION DIAGNOSIS: *Increased kcal and pro needs r/t wound healing as evidenced by pt admitted w/ wounds including partial thickness wound @ rt buttock and non-blanching erythema at BL heels, resolving L trochanter wound. CURRENT DIET:Regular PO DIET RECOMMENDATIONS: Liberalized REGULAR diet, small frequent meals (d/t h/o gastic bypass) ADDITIONAL RECOMMENDATIONS: 1) Wound healing: Tank BID added to tray MVI x 1, Vit C 250mg QD 2) Provide high protein snacks in b/w 3) Calibrated bed scale wt, monitor weekly wts 4) Monitor lytes daily w/ lasix, replete as needed 5) 4oz Ensure TID w/ meals 6) Monitor PO intake closely: pt reports prolonged poor appetite
--- NOTE | 2019-02-16 16:25 | Cardiology Report ---
APPROVED REPORT EKG Measurement Heart [id number] Normal sinus rhythm Nonspecific T wave abnormality Abnormal ECG
--- NOTE | 2019-02-16 16:27 | NUR ---
CASE MANAGEMENT: INITIAL REVIEW 63[facility] O[facility] CC: GENERAL COMPLAINT SI: PLEURAL EFFUSION . DVT . DYSPNEA 97.9 105 20 84/58 96% ON RA IS: IVF NS BOLUS X1 IV DILAUDID X1 IV MORPHINE X1 IV ZOFRAN X1 \: 2E TELE UNIT DCP: CASE MANAGEMENT:REVIEW 02/16/19 SI: PLEURAL EFFUSION . DVT . DYSPNEA 97.9 105 20 84/58 96% ON RA WBC 2.7 K+3.3 CL-112 CO2 20 CA+ 6.2 IS: HEPARIN GTT LASIX GTT \: 2E TELE UNIT DCP: RETURN TO [facility] WHEN MEDICALLY CLEARED PLAN: SP CX WOUND CARE
[2019-02-16] MEDS ORDERED: PRO-STAT LIQUID30 ML ORAL (18:39)
[2019-02-16] MEDS ORDERED: ARTIFICIAL TEAR15 ML BOTH EYES (18:41)
[2019-02-16] MEDS ORDERED: MULTIVITAMINS1 EAC8 ORAL (18:43)
--- NOTE | 2019-02-16 19:41 | Cardiology Progress Note ---
Assessment/Plan Assessment/Plan [id number] full note dicated ekg trop may need to repat eccho as well Objective Last 24 Hour Vital Signs Date Time Temp Pulse Resp B/P (MAP) Pulse Ox O2 Delivery O2 Flow Rate FiO2 02/16/19 16:00 129 02/16/19 16:00 99.6 129 20 100/59 (73) 96 02/16/19 14:03 99.9 02/16/19 12:00 127 02/16/19 12:00 97.6 127 18 110/77 (88) 96 02/16/19 09:54 98.7 02/16/19 09:00 Room Air 02/16/19 08:00 119 02/16/19 08:00 98.7 83 20 113/77 (89) 93 02/16/19 04:00 99.0 108 18 95/64 (74) 96 02/16/19 03:25 106 02/16/19 00:00 98.3 109 18 102/71 (81) 95 02/15/19 23:45 103 02/15/19 21:00 Room Air 02/15/19 20:42 98.9 102 18 104/64 (77) 98 02/15/19 20:03 95 Intake and Output 02/15/19 02/16/19 19:00 07:00 Intake Total 1490.635 ml 876.660 ml Balance 1490.635 ml 876.660 ml Intake Oral 360 ml 600 ml IV Total 1130.635 ml 276.660 ml # Voids 1 # Bowel Movements 1 Laboratory Tests Test 02/16/19 06:00 02/16/19 15:30 White Blood Count 2.7 K/UL (4.8-10.8) #L Red Blood Count 3.95 M/UL (4.20-5.40) L Hemoglobin 12.4 G/DL (12.0-16.0) Hematocrit 38.1 % (37.0-47.0) Mean Corpuscular Volume 96 FL (80-99) Mean Corpuscular Hemoglobin 31.5 PG (27.0-31.0) H Mean Corpuscular Hemoglobin Concent 32.6 G/DL (32.0-36.0) Red Cell Distribution Width 13.8 % (11.6-14.8) Platelet Count 368 K/UL (150-450) Mean Platelet Volume 5.0 FL (6.5-10.1) L Neutrophils (%) (Auto) % (45.0-75.0) Lymphocytes (%) (Auto) % (20.0-45.0) Monocytes (%) (Auto) % (1.0-10.0) Eosinophils (%) (Auto) % (0.0-3.0) Basophils (%) (Auto) % (0.0-2.0) Differential Total Cells Counted 100 Neutrophils % (Manual) 50 % (45-75) Lymphocytes % (Manual) 35 % (20-45) Monocytes % (Manual) 3 % (1-10) Eosinophils % (Manual) 0 % (0-3) Basophils % (Manual) 0 % (0-2) Band Neutrophils 12 % (0-8) H Platelet Estimate Adequate Platelet Morphology Normal Activated Partial Thromboplast Time > 150 SEC (23-33) *H 99 SEC (23-33) H Sodium Level 142 MMOL/L (136-145) Potassium Level 3.3 MMOL/L (3.5-5.1) L Chloride Level 112 MMOL/L (98-107) H Carbon Dioxide Level 20 MMOL/L (21-32) L Anion Gap 10 mmol/L (5-15) Blood Urea Nitrogen 17 mg/dL (7-18) Creatinine 1.1 MG/DL (0.55-1.30) Estimat Glomerular Filtration Rate > 60 mL/min (>60) Glucose Level 106 MG/DL (74-106) Calcium Level 6.2 MG/DL (8.5-10.1) L Total Bilirubin 0.6 MG/DL (0.2-1.0) Aspartate Amino Transf (AST/SGOT) 43 U/L (15-37) H Alanine Aminotransferase (ALT/SGPT) 33 U/L (12-78) Alkaline Phosphatase 212 U/L (46-116) H Total Protein 4.7 G/DL (6.4-8.2) L Albumin 1.0 G/DL (3.4-5.0) L Globulin 3.7 g/dL Albumin/Globulin Ratio 0.3 (1.0-2.7) L Triglycerides Level 75 MG/DL (30-150) Cholesterol Level 68 MG/DL (< 200) LDL Cholesterol 12 mg/dL (<100) HDL Cholesterol 39 MG/DL (40-60) L Cholesterol/HDL Ratio 1.7 (3.3-4.4) L Thyroid Stimulating Hormone (TSH) 3.264 uiU/mL (0.358-3.740) Humble Estrada MD Feb 16, 2019 19:41
--- NOTE | 2019-02-16 19:41 | NUR ---
HAND-OFF: Report given to Ginna/RN, Patient is in stable condition. Endorsed plan of care.
--- NOTE | 2019-02-16 19:45 | NUR ---
NURSE NOTES: Received report from TATYANA Lucero. Patient is awake lying semi-gao's; resting comfortably. No signs of acute distress noted; denies pain at this time. AOx4; able to make needs known. Checked IV site, lines, and IV rate; patent and running. Heparin drip running at 8 units/kg/hr or 11.612 mls/hr. No erythema, bleeding, or infiltration noted. Bed at lowest position, brakes on, siderails up x3. Call light within reach. Will continue to monitor.
--- NOTE | 2019-02-16 21:01 | NUR ---
NURSE NOTES: Called Dr. Estrada regarding patient's EKG result showing supraventricular tachycardia. Received new order for Metoprolol 5mg IVP once. Noted and carried out.
[2019-02-16] MEDS ORDERED: Metoprolol Tartrate 5mg/5ml Inj IVP SCH (21:15)
--- NOTE | 2019-02-16 21:25 | NUR ---
NURSE NOTES: Called Dr. Arnett to notify him that patient's potassium level is 3.3. Received new order for KCl 40 meq PO x1. Noted and carried out.
--- NOTE | 2019-02-16 22:57 | NUR ---
NURSE NOTES: Patient noted to be unresponsive to shaking and sternal rub and having agonal breathing. Rapid response initially called, but after confirming an absence of pulses, code blue was called. Patient's blood sugar taken - 67; Dextrose 50% administered. Patient achieved ROSC at 2243. Notified Dr. Menjivar regarding patient's condition. Received new orders including transfer order to ICU. Noted and carried out.
--- NOTE | 2019-02-16 23:00 | NUR ---
NURSE NOTES: patient transferred to ICU post BLEACHER LARD on non rebreather. MD Arnett ordered transfer. Sinus tach on the monitor with HR 129. BP 86/41. AOx4, able to make needs known. Right and left arms noted to be hot touch with patient complaining of pain. she has right and left AC IV sites patent and intact. Purewick collecting urine. Temp 102.1 rectal. Cleaned turned and repositioned. Will continue to monitor.
--- NOTE | 2019-02-16 23:25 | NUR ---
NURSE NOTES: called and left message for MD Arnett in regards to patient now in ICU and BP 79/31. Lasix gtt is on hold and heparin gtt continues. awaiting call back.
--- NOTE | 2019-02-16 23:33 | NUR ---
NURSE NOTES: Called and spoke with admitting MD Menjivar at this time. BP continues to drop and no answer from Melquiades. MD now aware of HR 130's temp 102.1. MD Ordered for Levophed to be started, lasix to be stopped, Blood cultures x2 and UA to be collected and sent to the lab at this time. Patient also needs to started Vanco Phramacy to dose, heredia for accurate I/O. orders read back and confirmed by .
[2019-02-16 23:40] LABS: HEMATOCRIT 29.9 % (37.0-47.0); HEMOGLOBIN 9.8 G/DL (12.0-16.0); MEAN CORPUSCULAR VOLUME 97 FL (80-99); PLATELET COUNT 227 K/UL (150-450); RED BLOOD COUNT 3.09 M/UL (4.20-5.40); RED CELL DISTRIBUTION WIDTH 13.7 % (11.6-14.8)
--- NOTE | 2019-02-16 23:40 | NUR ---
NURSE NOTES: MD Menjivar Called back and notified him of Central line needed. ER MD Needs to be notified per MD. He spoke with ER MD and he is busy. order is to try to contact MD Hope for central line placement.
--- NOTE | 2019-02-16 23:41 | NUR ---
NURSE NOTES: Spoke with MD Hope, stated he will get a hold of the team and come in to place line. Everything being prepared at this time.
[2019-02-16 23:51] LABS: WHITE BLOOD COUNT 0.8 K/UL (4.8-10.8)
[2019-02-16 23:53] LABS: ALANINE AMINOTRANSFERASE 25 U/L (12-78); ALBUMIN 0.6 G/DL (3.4-5.0); ALBUMIN/GLOBULIN RATIO 0.2 (1.0-2.7); ALKALINE PHOSPHATASE 151 U/L (46-116); ANION GAP 13 mmol/L (5-15); ASPARTATE AMINO TRANSFERASE 48 U/L (15-37); BILIRUBIN,TOTAL 0.7 MG/DL (0.2-1.0); BLOOD UREA NITROGEN 21 mg/dL (7-18); CARBON DIOXIDE 16 MMOL/L (21-32); CHLORIDE 113 MMOL/L (98-107); CREATININE 1.8 MG/DL (0.55-1.30); PHOSPHORUS 2.7 MG/DL (2.5-4.9); POTASSIUM 3.4 MMOL/L (3.5-5.1); SODIUM 142 MMOL/L (136-145)
[2019-02-16 23:59] LABS: CALCIUM 5.8 MG/DL (8.5-10.1)
--- NOTE | 2019-02-16 23:59 | NUR ---
TRANSFER TO FLOOR: Report given to TATYANA Mccauley. Patient was transferred to ICU from Telemetry unit without incident. Belongings list checked. Patient put on ICU monitor. Left message for Emilie Hsu, patient's sister regarding transfer status to ICU. Bed at lowest position, brakes on, siderails up x3. Call light within reach.
[2019-02-17] VITALS (56 sets, daily range): BP systolic 32–114; BP diastolic 11–84
[2019-02-17] MEDS ORDERED: Lidocaine 2% 20mg/ml/EPI 0.01mg/ml 20ml INJ ONE
--- NOTE | 2019-02-17 | NUR ---
NURSE NOTES: MD Hope at the bedside to place central line. Patient has already consented.
[2019-02-17] MEDS ORDERED: Lidocaine 1% Plain 30 ml INJ ONE (00:15)
[2019-02-17] MEDS ORDERED: Levophed 4mg/4mL Inj IV ONE ×2 (00:18→02:36)
--- NOTE | 2019-02-17 00:20 | NUR ---
NURSE NOTES: Right femoral line in place. all ports working at this time.
--- NOTE | 2019-02-17 00:25 | Consultation ---
History of Present Illness General Reason for Hospitalization: General Complaint Present Illness HPI 63-year-old female history of pulmonary embolism, bilateral DVT, pleural effusion, cervical fusion presents with shortness of breath. Admitted for medical care and management. Now in ICU hypotensive, tachycardic, not responsive to fluids requiring pressors. Surgery called to evaluate and assist with care. I was called in at 11:45pm to assist with management. Patient seen in ICU, discussed care plan, reviewed labs and history. Patient states she feels tired and weak. no n/v/f/c. labs as below. hypotensive with SBP in the 50's and DBP in the 20's. tachy to the 140-150's. Allergies: Coded Allergies: CODEINE (Verified Allergy, Intermediate, 02/03/19) Medication History Scheduled Alendronate Sodium* (Fosamax*), 70 MG ORAL ONCE A WEEK, (Reported) Amino Acids/Protein Hydrolys (Pro-Stat Liquid), 30 ML ORAL DAILY, (Reported) Ascorbic Acid* (Vitamin C*), 500 MG ORAL DAILY, (Reported) Melatonin/Pyridoxine HCl (B6) (Melatonin 3 mg Tablet), 1 EACH PO QHS, (Reported) Multivitamin With Minerals (Multivitamins With Minerals*), 1 TAB ORAL DAILY, ( Reported) Zinc Sulfate (Zinc Sulfate*), 220 MG ORAL DAILY, (Reported) Scheduled PRN Acetaminophen* (Acetaminophen 325MG Tablet*), 650 MG ORAL Q6H PRN for Prn Headache/Temp > 101, (Reported) Dextran 70/Hypromellose (Artificial Tears Eye Drops*), 1 DROP BOTH EYES BID PRN for EYE DRYNESS, (Reported) Hydrocodone Bit/Acetaminophen 5-325* ([place] 5-325*), 1 TAB ORAL Q6H PRN for Severe Pain (Pain Scale 7-10), (Reported) Lactase (Lactaid), 3 TAB-CAP PO for lactose intol, (Reported) Discontinued Medications Apixaban (Eliquis), 10 MG PO BID, (Reported) Discontinued Reason: Therapy completed Furosemide* (Lasix*), 20 MG ORAL DAILY, (Reported) Discontinued Reason: MD discontinued med [med for OP], Unknown Dose ORAL ONCE A WEEK, (Reported) Discontinued Reason: MD discontinued med Patient History History Provided By: Patient, Medical Record, PMD Healthcare decision maker Resuscitation status Full Code Advanced Directive on File Past Medical/Surgical History Past Medical/Surgical History: (1) Anasarca (2) Sepsis (3) Pulmonary embolism (4) Decubitus skin ulcer (5) Hypophosphatemia (6) UTI (urinary tract infection) (7) Severe protein-calorie malnutrition (8) DVT (deep venous thrombosis) (9) Pleural effusion on left Review of Systems Review of Symptoms General ROS: weak / fatigue Psychological ROS: no depression or mood changes, no memory loss Ophthalmic ROS: no visual changes or eye irritation ENT ROS: no nasal congestion, hearing loss, dizziness Allergy and Immunology ROS: no allergic symptoms or urticaria Hematological and Lymphatic ROS: no swollen glands, unusual bleeding or bruising Endocrine ROS: no polyuria, polydipsia, weight changes, temperature intolerance Respiratory ROS: no cough, shortness of breath, or wheezing Cardiovascular ROS: no chest pain or dyspnea on exertion Gastrointestinal ROS: denies abdominal pain, bright red blood in stool. Musculoskeletal ROS: no myalgias or arthralgias Neurological ROS: no TIA or stroke symptoms Dermatological ROS: no new or changing skin lesions, rashes or pruritis Physical Exam Physical Exam General appearance: alert, cooperative, no distress, appears stated age Head: Normocephalic, without obvious abnormality, atraumatic Eyes: conjunctivae/corneas clear. PERRL, EOM's intact. Fundi benign Throat: Lips, mucosa, and tongue normal. Teeth and gums normal Neck: supple, symmetrical, trachea midline, no adenopathy, thyroid: not enlarged, symmetric, no tenderness/mass/nodules, no carotid bruit and no JVD Lungs: clear to auscultation bilaterally Heart: regular rate and rhythm, S1, S2 normal, no murmur, click, rub or gallop Abdomen: soft, non-tender. Bowel sounds normal. No masses, no organomegaly Extremities: extremities edema Pulses: 2+ and symmetric Skin: Skin color, texture, turgor normal. No rashes or lesions Neurologic: Grossly normal Last 24 Hour Vital Signs Date Time Temp Pulse Resp B/P (MAP) Pulse Ox O2 Delivery O2 Flow Rate FiO2 02/16/19 23:00 133 59/46 02/16/19 20:00 99.3 62 16 112/50 (70) 96 02/16/19 19:04 139 02/16/19 16:00 129 02/16/19 16:00 99.6 129 20 100/59 (73) 96 02/16/19 14:03 99.9 02/16/19 12:00 127 02/16/19 12:00 97.6 127 18 110/77 (88) 96 02/16/19 09:54 98.7 02/16/19 09:00 Room Air 02/16/19 08:00 119 02/16/19 08:00 98.7 83 20 113/77 (89) 93 02/16/19 04:00 99.0 108 18 95/64 (74) 96 02/16/19 03:25 106 Intake and Output 02/16/19 02/17/19 19:00 07:00 Intake Total 162.612 ml 67.836 ml Output Total 200 ml Balance -37.388 ml 67.836 ml Intake Oral 140 ml IV Total 22.612 ml 67.836 ml Output Urine Total 200 ml Laboratory Tests Test 02/16/19 06:00 02/16/19 15:30 02/16/19 22:35 02/16/19 22:54 White Blood Count 2.7 K/UL (4.8-10.8) #L Red Blood Count 3.95 M/UL (4.20-5.40) L Hemoglobin 12.4 G/DL (12.0-16.0) Hematocrit 38.1 % (37.0-47.0) Mean Corpuscular Volume 96 FL (80-99) Mean Corpuscular Hemoglobin 31.5 PG (27.0-31.0) H Mean Corpuscular Hemoglobin Concent 32.6 G/DL (32.0-36.0) Red Cell Distribution Width 13.8 % (11.6-14.8) Platelet Count 368 K/UL (150-450) Mean Platelet Volume 5.0 FL (6.5-10.1) L Neutrophils (%) (Auto) % (45.0-75.0) Lymphocytes (%) (Auto) % (20.0-45.0) Monocytes (%) (Auto) % (1.0-10.0) Eosinophils (%) (Auto) % (0.0-3.0) Basophils (%) (Auto) % (0.0-2.0) Differential Total Cells Counted 100 Neutrophils % (Manual) 50 % (45-75) Lymphocytes % (Manual) 35 % (20-45) Monocytes % (Manual) 3 % (1-10) Eosinophils % (Manual) 0 % (0-3) Basophils % (Manual) 0 % (0-2) Band Neutrophils 12 % (0-8) H Platelet Estimate Adequate Platelet Morphology Normal Activated Partial Thromboplast Time > 150 SEC (23-33) *H 99 SEC (23-33) H > 150 SEC (23-33) *H Sodium Level 142 MMOL/L (136-145) Potassium Level 3.3 MMOL/L (3.5-5.1) L Chloride Level 112 MMOL/L (98-107) H Carbon Dioxide Level 20 MMOL/L (21-32) L Anion Gap 10 mmol/L (5-15) Blood Urea Nitrogen 17 mg/dL (7-18) Creatinine 1.1 MG/DL (0.55-1.30) Estimat Glomerular Filtration Rate > 60 mL/min (>60) Glucose Level 106 MG/DL (74-106) Calcium Level 6.2 MG/DL (8.5-10.1) L Total Bilirubin 0.6 MG/DL (0.2-1.0) Aspartate Amino Transf (AST/SGOT) 43 U/L (15-37) H Alanine Aminotransferase (ALT/SGPT) 33 U/L (12-78) Alkaline Phosphatase 212 U/L (46-116) H Total Protein 4.7 G/DL (6.4-8.2) L Albumin 1.0 G/DL (3.4-5.0) L Globulin 3.7 g/dL Albumin/Globulin Ratio 0.3 (1.0-2.7) L Triglycerides Level 75 MG/DL (30-150) Cholesterol Level 68 MG/DL (< 200) LDL Cholesterol 12 mg/dL (<100) HDL Cholesterol 39 MG/DL (40-60) L Cholesterol/HDL Ratio 1.7 (3.3-4.4) L Thyroid Stimulating Hormone (TSH) 3.264 uiU/mL (0.358-3.740) Arterial Blood pH 7.463 (7.350-7.450) Arterial Blood Partial Pressure CO2 20.4 mmHg (35.0-45.0) *L Arterial Blood Partial Pressure O2 215.4 mmHg (75.0-100.0) H Arterial Blood HCO3 14.3 mmol/L (22.0-26.0) *L Arterial Blood Oxygen Saturation 96.2 % (95-100) Arterial Blood Base Excess -8.0 (-2-2) L Juan Test Positive Test 02/16/19 23:20 White Blood Count 0.8 K/UL (4.8-10.8) #*L Red Blood Count 3.09 M/UL (4.20-5.40) L Hemoglobin 9.8 G/DL (12.0-16.0) L Hematocrit 29.9 % (37.0-47.0) L Mean Corpuscular Volume 97 FL (80-99) Mean Corpuscular Hemoglobin 31.8 PG (27.0-31.0) H Mean Corpuscular Hemoglobin Concent 32.9 G/DL (32.0-36.0) Red Cell Distribution Width 13.7 % (11.6-14.8) Platelet Count 227 K/UL (150-450) Mean Platelet Volume 4.8 FL (6.5-10.1) L Neutrophils (%) (Auto) % (45.0-75.0) Lymphocytes (%) (Auto) % (20.0-45.0) Monocytes (%) (Auto) % (1.0-10.0) Eosinophils (%) (Auto) % (0.0-3.0) Basophils (%) (Auto) % (0.0-2.0) Sodium Level 142 MMOL/L (136-145) Potassium Level 3.4 MMOL/L (3.5-5.1) L Chloride Level 113 MMOL/L (98-107) H Carbon Dioxide Level 16 MMOL/L (21-32) L Anion Gap 13 mmol/L (5-15) Blood Urea Nitrogen 21 mg/dL (7-18) H Creatinine 1.8 MG/DL (0.55-1.30) #H Estimat Glomerular Filtration Rate 34.3 mL/min (>60) Glucose Level 105 MG/DL (74-106) Calcium Level 5.8 MG/DL (8.5-10.1) *L Phosphorus Level 2.7 MG/DL (2.5-4.9) Magnesium Level 1.5 MG/DL (1.8-2.4) L Total Bilirubin 0.7 MG/DL (0.2-1.0) Aspartate Amino Transf (AST/SGOT) 48 U/L (15-37) H Alanine Aminotransferase (ALT/SGPT) 25 U/L (12-78) Alkaline Phosphatase 151 U/L (46-116) H Troponin I 0.047 ng/mL (0.000-0.056) Total Protein 3.3 G/DL (6.4-8.2) L Albumin 0.6 G/DL (3.4-5.0) L Globulin 2.7 g/dL Albumin/Globulin Ratio 0.2 (1.0-2.7) L Microbiology Date/Time Source Procedure Growth Status 02/16/19 20:35 Nasopharynx - Final Complete 02/16/19 20:35 Nasopharynx - Final Complete Height (Feet): 5 Height (Inches): 9.00 Weight (Pounds): 179 Medications Current Medications Medications (Trade) Dose Ordered Sig/Ronnie Route PRN Reason Start Time Stop Time Status Last Admin Dose Admin Acetaminophen (Tylenol) 650 mg Q4H PRN ORAL fever 02/17/19 03:15 03/17/19 11:14 Dextrose (Dextrose 50%) 25 ml Q30M PRN IV Hypoglycemia 02/17/19 00:15 03/17/19 11:14 Dextrose (Dextrose 50%) 50 ml Q30M PRN IV Hypoglycemia 02/17/19 00:15 03/17/19 11:14 Furosemide 100 mg/ Dextrose 110 ml @ 11 mls/hr Q10H IV 02/17/19 00:00 03/18/19 11:59 Heparin Sodium/ Dextrose 500 ml @ 5.806 mls/ hr ADJUST PER PROTOCOL IV 02/17/19 00:30 03/19/19 00:29 Lorazepam (Ativan 2mg/ml 1ml) 0.5 mg Q4H PRN IV For Anxiety 02/17/19 03:15 02/22/19 11:14 Morphine Sulfate (Morphine Sulfate) 2 mg Q4H PRN IVP Moderate Pain (Pain Scale 4-6) 02/17/19 01:30 02/22/19 17:29 Morphine Sulfate (Morphine Sulfate) 4 mg Q2H PRN IVP Severe Pain (Pain Scale 7-10) 02/17/19 01:30 02/23/19 13:29 Norepinephrine Bitartrate 4 mg/ Dextrose 250 ml @ 0 mls/hr Q24H IV 02/17/19 23:45 03/18/19 23:44 Ondansetron HCl (Zofran) 4 mg Q6H PRN IVP Nausea & Vomiting 02/17/19 05:15 03/17/19 11:14 Polyethylene Glycol (Miralax) 17 gm HSPRN PRN ORAL Constipation 02/17/19 11:15 03/17/19 11:14 Vancomycin HCl (Vanco rx to dose) 1 ea DAILY PRN MISC Per rx protocol 02/17/19 09:00 03/18/19 23:44 Vancomycin HCl 750 mg/Sodium Chloride 275 ml @ 184 mls/hr Q12H IVPB 02/17/19 02:00 02/22/19 01:59 Zolpidem Tartrate (Ambien) 5 mg HSPRN PRN ORAL Insomnia 02/17/19 11:15 02/22/19 11:14 Assessment/Plan Problem List: (1) Sepsis Assessment & Plan: hypotension tachycardia unresponsive to fluids start Levophed now needs central venous catheter. see note iv fluids abx as per ID consider thora AM CXR repeat labs warming will follow with recs thank you ICD Codes: A41.9 - Sepsis, unspecified organism SNOMED: 32170878 (2) Severe protein-calorie malnutrition ICD Codes: E43 - Unspecified severe protein-calorie malnutrition SNOMED: 067000302, 214107958, 853842565 (3) Decubitus skin ulcer ICD Codes: L89.90 - Pressure ulcer of unspecified site, unspecified stage SNOMED: 124809335 Junaid Hope Feb 17, 2019 00:25
--- NOTE | 2019-02-17 00:26 | Operative Note - PDOC ---
Operative Note Operative Note Date of Operation/Procedure: Feb 17, 2019 Pre-op Diagnosis: sepsis, hypotension, tachycardia Procedure: right femoral central venous catheter insertion Post-op Diagnosis: same as pre-op Surgeon: Junaid Hope MD Anesthesia: local Specimen: none Complications: none Condition: unstable Estimated Blood Loss: minimal Drains: none Implant(s) used?: No Indications for Procedure Please see consult note for details Description of Procedure patient made comfortable at bedside. the right groin was prepped and draped in standard surgical fashion. all appropriate protective sterile equipment worn. lidocain 1% with epi infiltrated right femoral vein was cannulated on first stick and venous blood withdrawn. guidewire placed and needle removed. skin incision made around wire and dilator used. triple lumen central venous catheter placed over wire and wire discarded. all ports flushed and aspirated appropriately. line sutured in place and dressings applied. okay to use Junaid Hope Feb 17, 2019 00:26
[2019-02-17] MEDS ORDERED: Heparin 25,000u/D5W 500ml 500 ML IV SCH ×2 (00:30)
[2019-02-17] MEDS ORDERED: Lidocaine 1% 10mg/ml/EPI 0.01mg/ml 30ml INJ ONE (00:30)
--- NOTE | 2019-02-17 00:51 | NUR ---
NURSE NOTES: Spoke with MD Arnett in regards to ionized calcium that was ordered. 1gm calcium ordered.
[2019-02-17 00:57] LABS: HEMATOCRIT 28.1 % (37.0-47.0); HEMOGLOBIN 9.1 G/DL (12.0-16.0); MEAN CORPUSCULAR VOLUME 98 FL (80-99); PLATELET COUNT 221 K/UL (150-450); RED BLOOD COUNT 2.86 M/UL (4.20-5.40)
--- NOTE | 2019-02-17 01:03 | NUR ---
NURSE NOTES: Message left for MD Arnett in regards to most recent labs. awaiting call back.
[2019-02-17 01:07] LABS: WHITE BLOOD COUNT 0.7 K/UL (4.8-10.8)
[2019-02-17 01:09] LABS: ANION GAP 15 mmol/L (5-15); BLOOD UREA NITROGEN 22 mg/dL (7-18); CARBON DIOXIDE 16 MMOL/L (21-32); CHLORIDE 112 MMOL/L (98-107); CREATININE 1.8 MG/DL (0.55-1.30); POTASSIUM 3.1 MMOL/L (3.5-5.1); SODIUM 143 MMOL/L (136-145)
[2019-02-17 01:12] LABS: CALCIUM 5.6 MG/DL (8.5-10.1)
[2019-02-17] MEDS ORDERED: Calcium Gluconate 10% 1 GM in NS 110 ML IV SCH (01:30)
[2019-02-17] MEDS ORDERED: Morphine Sulfate 2mg/ml Inj(IV/IM USE ONLY) IVP PRN (01:30)
[2019-02-17] MEDS ORDERED: Morphine Sulfate 4mg/ml Inj (IV USE ONLY) IVP PRN (01:30)
--- NOTE | 2019-02-17 01:47 | NUR ---
NURSE NOTES: Message left again in regards to labs. no answer. awaiting call back
[2019-02-17] MEDS ORDERED: Vasopressin 100 UNITS in NS 95 ML IV SCH (02:00)
[2019-02-17] MEDS ORDERED: Vancomycin 750 MG in NS 275 ML IVPB SCH ×4 (02:00)
--- NOTE | 2019-02-17 02:13 | NUR ---
NURSE NOTES: Chest x-ray report came back. Results relayed to MD Arnett. awaiting call back.
[2019-02-17] MEDS ORDERED: Norepinephrine Bitartrate 8 MG in D5W 500ml 550 ML IV SCH (02:45)
--- NOTE | 2019-02-17 02:54 | NUR ---
NURSE NOTES: CALLED AND SPOKE WITH MD RICE IN REGARDS TO PATIENT CURRENT bp 55/32. CURRENTLY ON LEVOPHED @ 30 MCG/MIN, VASSOPRESSIN 0.04 U/MIN. ORDER IS TO GIVE FLUIDS AND START CHANDA IF SHE DOES NOT RESPOND.
--- NOTE | 2019-02-17 03:03 | NUR ---
NURSE NOTES: Attempted to call Bruce Peter that is listed as next of kin. No answer. Will attempt to call back later.
[2019-02-17] MEDS ORDERED: LORazepam Inj 2mg/ml 1ml IV PRN (03:15)
--- NOTE | 2019-02-17 04:05 | NUR ---
NURSE NOTES: Went into assess patient at this time noted patient slurring words. she is complaining of being unable to talk left sided weaker than before. patient has weak smile. she repeated states " she is having a stroke".
--- NOTE | 2019-02-17 04:06 | NUR ---
NURSE NOTES: Heparin gtt on hold at this time until CT is done.
--- NOTE | 2019-02-17 04:10 | NUR ---
NURSE NOTES: Called MD Arnett and not answer at this time.
--- NOTE | 2019-02-17 04:13 | NUR ---
NURSE NOTES: Called MD Arnett at this time and notified him stroke is suspected on this patient. She is complaining of Left side numbness now. She is slurring her worlds and unable to make certain words also. MD Arnett stated " there is nothing we can do at this time" When asked about CT he said no. nursing supervisor cleaning and annealing notified.
--- NOTE | 2019-02-17 04:19 | NUR ---
NURSE NOTES: Called MD Arnett again and asked if he would like the CT of the head to be done to rule out CVA. Stated no at first. Told him we are still within the window for CT Scan to be done. MD Arnett agreed.
--- NOTE | 2019-02-17 04:20 | NUR ---
NURSE NOTES: Radiologist Nathan contacted at this time and notified him that CT of the head needs to be done STAT. Stated he will be here shortly.
--- NOTE | 2019-02-17 04:30 | NUR ---
NURSE NOTES: Attempted to take patient down to CT Scan current BP 51/29 at this time. Patient continues to deteriorate at this time. Unable to mouth many words, struggling to make words and BP unstable.
[2019-02-17 04:39] LABS: APPEARANCE,URINE CLEAR; BILIRUBIN, URINE NEGATIVE (NEGATIVE); COLOR,URINE PALE YELLOW; GLUCOSE, URINE (UA) NEGATIVE (NEGATIVE); KETONES,URINE NEGATIVE (NEGATIVE); LEUKOCYTE ESTERASE ,URINE NEGATIVE (NEGATIVE); NITRITE,URINE NEGATIVE (NEGATIVE); PH,URINE 6.5 (4.5-8.0); PROTEIN,URINE NEGATIVE (NEGATIVE); UROBILINOGEN,URINE NORMAL MG/DL (0.0-1.0)
--- NOTE | 2019-02-17 04:45 | NUR ---
NURSE NOTES: BP continues to be 74/51 at this time. patient unstable to take to CT at this time
--- NOTE | 2019-02-17 04:49 | NUR ---
NURSE NOTES: Notified MD Arnett patients heparin gtt is on hold until CT scan is done.
--- NOTE | 2019-02-17 04:50 | NUR ---
NURSE NOTES: Spoke with Emilie Hsu, Patient sister. notified her patient condition has deteriorate at this time. Patient is unable to talk on the phone at this time.
--- NOTE | 2019-02-17 06:07 | NUR ---
NURSE NOTES: Late Entry: Notified MD Arnett patient Lactic acid 8.3, Patient now going into respiratory distress with RR 31-40. unable to get ABG, patient very swollen. awaiting call back.
--- NOTE | 2019-02-17 06:20 | NUR ---
NURSE NOTES: Late entry: ICU Director at the bedside, notified her of the situation. called ER MD to assess patient. MD Arnett has not responding.
--- NOTE | 2019-02-17 06:30 | NUR ---
RESPIRATORY NOTE: Pt got intubated with ETT 7.5@ 23cm lip line. secured with anchor fast per Dr. Davidson. Pt is placed on vent settings: AC [id number]- no peep. Pt is sedated, no SOB or resp distress noted. Doroteo clear breath sounds heard upon auscultation, suctioned small amount of thick white clear secretions without incidents. Alarms are set and audible, vent is plugged intro the red outlet, ambu bag is at bedside. ABG in 1 hour. Will continue to monitor pt.
--- NOTE | 2019-02-17 06:34 | NUR ---
NURSE NOTES: Patient Successful intubated at this time by MD Davidson. Stat xray ordered
--- NOTE | 2019-02-17 06:40 | NUR ---
NURSE NOTES: Notified X-ray that patient needs to have a stat Chest xray for tube placement.
--- NOTE | 2019-02-17 06:46 | Emergency Room Report ---
History of Present Illness General Chief Complaint: General Complaint Source: Patient, Medical Record, PMD Present Illness Allergies: Coded Allergies: CODEINE (Verified Allergy, Intermediate, 02/03/19) Patient History Now: No Nursing Documentation-PMH Past Medical History: No History, Except For Hx Cardiac Problems: No - Bilat LE DVT, rt. hemiplegia Hx Cancer: No Hx Gastrointestinal Problems: Yes - Gastric bypass (2003), UTI Hx Neurological Problems: No - lumbar fusion Physical Exam Vital Signs Date Time Temp Pulse Resp B/P (MAP) Pulse Ox O2 Delivery O2 Flow Rate FiO2 02/15/19 08:23 97.9 105 20 84/58 (67) 96 Room Air 02/16/19 23:00 15.0 Procedures Intubation Intubation : Consent: Emergent Time of Intubation: 06:27 Intubation Method: orotracheal Tube Size (cm): 7.5 Medications: Etomidate, Rocuronium Breath Sounds after Intubation: equal Intubation Complications: no complications Post Intubation Xray: Yes Attempts: One Patient Tolerated: Well Complications: None Progress Tube secured at 23 cm to the teeth. Patient's chest rise was symmetric after intubation. She continued to be hypotensive. Family were notified of her condition. Medical Decision Making Diagnostic Impression: Primary Impression: Dyspnea Additional Impressions: DVT (deep venous thrombosis) Pleural effusion on left Last Vital Signs Date Time Temp Pulse Resp B/P (MAP) Pulse Ox O2 Delivery O2 Flow Rate FiO2 02/17/19 04:00 113 02/17/19 03:30 95.2 35 75/49 97 Venturi Mask 14.0 Disposition: ADMITTED INPATIENT Condition: Stable Referrals: Devonte Menjivar MD (PCP) Osbaldo Davidson MD Feb 17, 2019 06:46
[2019-02-17] MEDS: Phenylephrine 50 MG in D5W 245 ML IV SCH ×2 (06:49→13:54)
--- NOTE | 2019-02-17 07:04 | NUR ---
NURSE NOTES: Late Entry: MD Arnett called and acknowledged the patients current condition. No new orders at this time.
--- NOTE | 2019-02-17 07:05 | NUR ---
HAND-OFF: Report given to Troy Rn using SBAR. Aware chest x-ray and ABG need to be done.
--- NOTE | 2019-02-17 07:05 | NUR ---
NURSE NOTES: Received report from TATYANA Mccauley. Patient is comatose S/P, [employer] and intubation. ETT 7.08/05 at lip line with vent setting AC 16, VT 500 and FiO2 100%. O2 sat 100% on the monitor. NPO status. [place] intact, patent and draining with yellow color urine. Right femoral TLC intact, clean and running with Levo @30mcg/min, vasopressin 0.04 u/min and keagan 240mcg/min. SBP 80s noted at this time. kept clean, comfortable and supine position for BP. Will continue plan of care and continue to monitor closely.
[2019-02-17] MEDS: Norepinephrine Bitartrate 8 MG in D5W 500ml 492 ML IV SCH ×2 (07:38→13:10)
--- NOTE | 2019-02-17 07:38 | NUR ---
RADIOLOGY: PCXR POST ETT PLACEMENT SHOT 0735 HRS. NF
--- NOTE | 2019-02-17 07:53 | NUR ---
NURSE NOTES: Troy aware that transfer pictures have not been taken, patient too unstable.
--- NOTE | 2019-02-17 08:02 | Diagnostic Imaging Report ---
Indication: Endotracheal tube placement Technique: One view of the chest Comparison: One half hour earlier Findings: Endotracheal tube again demonstrated, endotracheal tube tip projecting approximately 4 cm above the roshni, in good position. Bilateral interstitial and airspace edema, large left pleural effusion again demonstrated. Extensive postsurgical changes of the spine and upper abdomen are again demonstrated. Impression: Satisfactory endotracheal tube position Other stable findings as described
--- NOTE | 2019-02-17 08:05 | NUR ---
NURSE NOTES: AX Temp 94 noted. Applied yousif solo.
[2019-02-17] MEDS ORDERED: Sodium Bicarbonate 50ml Carp IV SCH ×3 (09:00→13:27)
[2019-02-17] MEDS ORDERED: Sodium Bicarbonate 150 ML in D5W 1000ml 1,000 ML IV SCH ×3 (09:00→13:45)
--- NOTE | 2019-02-17 09:00 | NUR ---
NURSE NOTES: Talked with Dr. Arnett regarding ABG results. New order read back and confirmed.
--- NOTE | 2019-02-17 09:47 | NUR ---
NURSE NOTES: Talked with Dr. Arnett and vent setting AC is changed from 16 to 20.
--- NOTE | 2019-02-17 10:05 | NUR ---
NURSE NOTES: SILVIA nathanp noted 96.1. Will continue to plan of care.
[2019-02-17] MEDS ORDERED: Amikacin Rx to dose MISC PRN (11:00)
--- NOTE | 2019-02-17 11:08 | Pulmonolgy Critical Care Note ---
Critical Care - Asmt/Plan Problems: (1) Septic shock (2) Multiple organ failure (3) Neutropenia (4) Respiratory failure, acute (5) Anasarca (6) Severe protein-calorie malnutrition (7) History of gastric bypass Respiratory: monitor respiratory rate, adjust FIO2, CXR Cardiac: continue pressors Renal: F/U I&O, keep IV fluid Infectious Disease: check cultures, add antibiotics Gastrointestinal: hold feedings - hold feeding until hemodynamically stable Endocrine: continue sliding scale insulin Hematologic: transfuse if hgb<8.5 Neurologic: PRN Ativan, PRN Morphine, keep patient comfortable Affect: PRN ativan Time Spent (Minutes): 40 Notes Reviewed: cardio, renal Discussed with: nurses, consultants, case management social worker, family member - discused with pts sister at the bed site Critical Care - Objective Last 24 Hour Vital Signs Date Time Temp Pulse Resp B/P (MAP) Pulse Ox O2 Delivery O2 Flow Rate FiO2 02/17/19 10:00 68/21 02/17/19 10:00 96.1 128 20 / 100 Mechanical Ventilator 100 02/17/19 09:45 127 20 44/34 100 Mechanical Ventilator 100 02/17/19 09:30 90 02/17/19 09:30 126 20 70/22 100 Mechanical Ventilator 100 02/17/19 09:15 116 16 60/27 100 Mechanical Ventilator 100 02/17/19 09:05 117 16 90 02/17/19 09:00 117 16 71/48 100 Mechanical Ventilator 100 02/17/19 09:00 71/48 02/17/19 09:00 90 02/17/19 08:45 124 16 79/31 100 Mechanical Ventilator 100 02/17/19 08:30 124 16 78/31 100 Mechanical Ventilator 100 02/17/19 08:15 124 16 70/31 100 Mechanical Ventilator 100 02/17/19 08:00 94.0 124 16 61/27 100 Mechanical Ventilator 100 02/17/19 08:00 100 02/17/19 08:00 61/27 02/17/19 07:45 124 16 40/31 100 Mechanical Ventilator 100 02/17/19 07:38 82/17 02/17/19 07:30 125 16 40/23 100 Mechanical Ventilator 100 02/17/19 07:15 124 16 114/52 100 Mechanical Ventilator 100 02/17/19 07:00 121 16 76/50 100 Mechanical Ventilator 100 02/17/19 06:49 119 86/52 02/17/19 06:45 119 16 86/64 100 Mechanical Ventilator 100 02/17/19 06:30 122 31 58/11 74 Venturi Mask 14.0 02/17/19 06:30 121 16 100 02/17/19 06:20 121 31 86 Non-Rebreather 15.0 100 02/17/19 06:15 109 37 76 Venturi Mask 14.0 02/17/19 06:00 116 39 59/36 83 Venturi Mask 14.0 02/17/19 05:45 117 35 71/52 Venturi Mask 14.0 02/17/19 05:30 116 35 79/49 Venturi Mask 14.0 02/17/19 05:15 114 35 83/37 Venturi Mask 14.0 02/17/19 05:00 113 35 79/28 Venturi Mask 14.0 02/17/19 04:45 113 36 75/51 94 Venturi Mask 14.0 02/17/19 04:30 117 35 48/14 Venturi Mask 14.0 02/17/19 04:15 114 35 51/29 Venturi Mask 14.0 02/17/19 04:00 97.9 119 35 77/55 Venturi Mask 14.0 02/17/19 04:00 113 02/17/19 03:45 118 35 75/79 Venturi Mask 14.0 02/17/19 03:30 95.2 118 35 75/49 97 Venturi Mask 14.0 02/17/19 03:15 115 35 92/66 100 Venturi Mask 14.0 02/17/19 03:00 112 35 61/39 100 Non-Rebreather 15.0 02/17/19 02:45 116 35 55/32 100 Non-Rebreather 15.0 02/17/19 02:45 53/31 02/17/19 02:30 124 35 53/31 100 Non-Rebreather 15.0 02/17/19 02:15 125 35 56/42 100 Non-Rebreather 15.0 02/17/19 02:00 125 36 59/37 100 Non-Rebreather 15.0 02/17/19 01:45 118 36 41/11 86 Non-Rebreather 15.0 02/17/19 01:30 127 36 60/45 86 Non-Rebreather 15.0 02/17/19 01:15 132 36 54/65 86 Non-Rebreather 15.0 02/17/19 01:00 132 36 101/84 86 Non-Rebreather 15.0 02/17/19 00:45 132 35 97/65 100 Non-Rebreather 15.0 02/17/19 00:30 124 35 71/36 100 Non-Rebreather 15.0 02/17/19 00:24 58/28 02/17/19 00:15 121 35 54/30 77 Non-Rebreather 15.0 02/17/19 00:00 99.6 137 35 58/28 100 Non-Rebreather 15.0 02/17/19 00:00 136 02/16/19 23:45 136 35 85/33 100 Non-Rebreather 15.0 02/16/19 23:30 127 36 57/21 100 Non-Rebreather 15.0 02/16/19 23:15 129 41 42/18 96 Non-Rebreather 15.0 02/16/19 23:00 133 59/46 02/16/19 23:00 102.1 130 41 86/41 96 Non-Rebreather 15.0 02/16/19 21:00 Room Air 02/16/19 20:00 99.3 62 16 112/50 (70) 96 02/16/19 19:04 139 02/16/19 16:00 129 02/16/19 16:00 99.6 129 20 100/59 (73) 96 02/16/19 14:03 99.9 02/16/19 12:00 127 02/16/19 12:00 97.6 127 18 110/77 (88) 96 Status: awake - still blink despite low bp Condition: critical HEENT: atraumatic Lungs: rales, rhonchi Heart: HR/BP stable Abdomen: soft Extremities: no C/C/E Decubiti: location Micro: Microbiology Date/Time Source Procedure Growth Status 02/16/19 20:35 Nasopharynx - Final Complete 02/16/19 20:35 Nasopharynx - Final Complete 02/15/19 10:28 Nose MRSA Culture - Final NO METHICILLIN RESISTANT STAPH AUREUS... Complete 02/15/19 10:28 Rectum VRE Culture - Final Enterococcus Faecium - Vre Complete Critical Care - Subjective ROS Limited/Unobtainable: Yes ICU Day: 1 Intubation Day: 1 Interval Events: Patient developed respiratory failure over night and needed, developed septic shock and started on levophed and Neosynephrine Condition: critical FI02: 100 Vent Support Breath Rate: 20 Vent Support Mode: AC Vent Tidal Volume: 500 Sputum Amount: Small PEEP: 0.0 PIP: 17 I&O: Intake and Output 02/16/19 02/17/19 19:00 07:00 Intake Total 162.612 ml 1220.586 ml Output Total 200 ml 950 ml Balance -37.388 ml 270.586 ml Intake Oral 140 ml IV Total 22.612 ml 1220.586 ml Output Urine Total 200 ml 950 ml CXR: ET tube in good position, right lung is clear, some haziness at the left side. ET-Tube: 7.5 ET Position: 23 Labs: Laboratory Tests Test 02/16/19 15:30 02/16/19 22:35 02/16/19 22:54 02/16/19 23:20 Activated Partial Thromboplast Time 99 SEC (23-33) H > 150 SEC (23-33) *H Arterial Blood pH 7.463 (7.350-7.450) Arterial Blood Partial Pressure CO2 20.4 mmHg (35.0-45.0) *L Arterial Blood Partial Pressure O2 215.4 mmHg (75.0-100.0) H Arterial Blood HCO3 14.3 mmol/L (22.0-26.0) *L Arterial Blood Oxygen Saturation 96.2 % (95-100) Arterial Blood Base Excess -8.0 (-2-2) L Juan Test Positive White Blood Count 0.8 K/UL (4.8-10.8) #*L Red Blood Count 3.09 M/UL (4.20-5.40) L Hemoglobin 9.8 G/DL (12.0-16.0) L Hematocrit 29.9 % (37.0-47.0) L Mean Corpuscular Volume 97 FL (80-99) Mean Corpuscular Hemoglobin 31.8 PG (27.0-31.0) H Mean Corpuscular Hemoglobin Concent 32.9 G/DL (32.0-36.0) Red Cell Distribution Width 13.7 % (11.6-14.8) Platelet Count 227 K/UL (150-450) Mean Platelet Volume 4.8 FL (6.5-10.1) L Neutrophils (%) (Auto) % (45.0-75.0) Lymphocytes (%) (Auto) % (20.0-45.0) Monocytes (%) (Auto) % (1.0-10.0) Eosinophils (%) (Auto) % (0.0-3.0) Basophils (%) (Auto) % (0.0-2.0) Sodium Level 142 MMOL/L (136-145) Potassium Level 3.4 MMOL/L (3.5-5.1) L Chloride Level 113 MMOL/L (98-107) H Carbon Dioxide Level 16 MMOL/L (21-32) L Anion Gap 13 mmol/L (5-15) Blood Urea Nitrogen 21 mg/dL (7-18) H Creatinine 1.8 MG/DL (0.55-1.30) #H Estimat Glomerular Filtration Rate 34.3 mL/min (>60) Glucose Level 105 MG/DL (74-106) Calcium Level 5.8 MG/DL (8.5-10.1) *L Phosphorus Level 2.7 MG/DL (2.5-4.9) Magnesium Level 1.5 MG/DL (1.8-2.4) L Total Bilirubin 0.7 MG/DL (0.2-1.0) Aspartate Amino Transf (AST/SGOT) 48 U/L (15-37) H Alanine Aminotransferase (ALT/SGPT) 25 U/L (12-78) Alkaline Phosphatase 151 U/L (46-116) H Troponin I 0.047 ng/mL (0.000-0.056) Total Protein 3.3 G/DL (6.4-8.2) L Albumin 0.6 G/DL (3.4-5.0) L Globulin 2.7 g/dL Albumin/Globulin Ratio 0.2 (1.0-2.7) L Test 02/17/19 00:29 02/17/19 00:45 02/17/19 03:30 02/17/19 04:00 Arterial Blood pH 7.412 (7.350-7.450) Arterial Blood Partial Pressure CO2 18.5 mmHg (35.0-45.0) *L Arterial Blood Partial Pressure O2 113.2 mmHg (75.0-100.0) H Arterial Blood HCO3 11.5 mmol/L (22.0-26.0) *L Arterial Blood Oxygen Saturation 95.2 % (95-100) Arterial Blood Base Excess -11.4 (-2-2) *L Juan Test Positive White Blood Count 0.7 K/UL (4.8-10.8) *L Red Blood Count 2.86 M/UL (4.20-5.40) L Hemoglobin 9.1 G/DL (12.0-16.0) L Hematocrit 28.1 % (37.0-47.0) L Mean Corpuscular Volume 98 FL (80-99) Mean Corpuscular Hemoglobin 31.7 PG (27.0-31.0) H Mean Corpuscular Hemoglobin Concent 32.3 G/DL (32.0-36.0) Red Cell Distribution Width 14.0 % (11.6-14.8) Platelet Count 221 K/UL (150-450) Mean Platelet Volume 5.0 FL (6.5-10.1) L Neutrophils (%) (Auto) % (45.0-75.0) Lymphocytes (%) (Auto) % (20.0-45.0) Monocytes (%) (Auto) % (1.0-10.0) Eosinophils (%) (Auto) % (0.0-3.0) Basophils (%) (Auto) % (0.0-2.0) Sodium Level 143 MMOL/L (136-145) Potassium Level 3.1 MMOL/L (3.5-5.1) L Chloride Level 112 MMOL/L (98-107) H Carbon Dioxide Level 16 MMOL/L (21-32) L Anion Gap 15 mmol/L (5-15) Blood Urea Nitrogen 22 mg/dL (7-18) H Creatinine 1.8 MG/DL (0.55-1.30) H Estimat Glomerular Filtration Rate 34.3 mL/min (>60) Glucose Level 75 MG/DL (74-106) Calcium Level 5.6 MG/DL (8.5-10.1) *L Ionized Calcium (Measured) 0.94 mmol/L (1.10-1.35) L Troponin I 0.051 ng/mL (0.000-0.056) 0.076 ng/mL (0.000-0.056) Anti-Diuretic Hormone Pending Lactic Acid Level 8.30 mmol/L (0.4-2.0) H Urine Color Pale yellow Urine Appearance Clear Urine pH 6.5 (4.5-8.0) Urine Specific [place] 1.010 (1.005-1.035) Urine Protein Negative (NEGATIVE) Urine Glucose (UA) Negative (NEGATIVE) Urine Ketones Negative (NEGATIVE) Urine Blood 2+ (NEGATIVE) H Urine Nitrite Negative (NEGATIVE) Urine Bilirubin Negative (NEGATIVE) Urine Urobilinogen Normal MG/DL (0.0-1.0) Urine Leukocyte Esterase Negative (NEGATIVE) Urine RBC 0-2 /HPF (0 - 2) Urine WBC 0-2 /HPF (0 - 2) Urine Squamous Epithelial Cells Few /LPF (NONE/OCC) Urine Bacteria Few /HPF (NONE) Test 02/17/19 05:05 02/17/19 07:56 Lactic Acid Level 8.90 mmol/L (0.66-2.22) H Arterial Blood pH 6.917 (7.350-7.450) Arterial Blood Partial Pressure CO2 35.1 mmHg (35.0-45.0) Arterial Blood Partial Pressure O2 213.6 mmHg (75.0-100.0) H Arterial Blood HCO3 7.0 mmol/L (22.0-26.0) *L Arterial Blood Oxygen Saturation 96.2 % (95-100) Arterial Blood Base Excess -24.7 (-2-2) *L Juan Test Positive Nga Arnett MD Feb 17, 2019 11:08
[2019-02-17] MEDS ORDERED: Zolpidem 5mg tab ORAL PRN (11:15)
[2019-02-17] MEDS ORDERED: Miralax 17gm pkt ORAL PRN (11:15)
--- NOTE | 2019-02-17 11:42 | NUR ---
NURSE NOTES: Another 3 Amps of sodium bicarb given as ordered. Started 3 Amps of Sodium bicarb in D5W drip with 150ml/hr. Besides running Levo 30mcg/min, Alex 240mcg/min and Vasopressin 0.04 U/min. BP is not stable. Will continue to plan of care and monitor closely.
--- NOTE | 2019-02-17 11:48 | Infectious Diseases Prog Note ---
Assessment/Plan Assessment/Plan Assessment: s/p Code blue, VDRF 02/16 Septic Shock- probable PNA- r/o bacteremia -02/17 u/a neg -02/16 Bcx p Dyspnea Worsening pleural effusion -02/17 CXR: Bilateral interstitial and airspace edema, large left pleural effusion again demonstrated. -02/15 CXR: Increasing left pleural effusion and right basilar atelectasis, since prior study of 02/07/2019. New right suprahilar atelectasis -influenza sc neg Fever severe leukopenia Lactic acidosis ANNIE s/p gastric bypass 2003 severe protein deficiency hx of b/l DVT (11/2018- refused AC at that time) and PE (01/2019) on chronic anticoagulation hx of pleural effusion s/p cervical and lumbar fusion SN[facility] resident Plan: -Continue tempiric IV Vancomycin, meropenem and amikacin #1 for now penidng cutlures -f/u cx -Monitor CBC/CMP, temperatures -aspiration precautions -ETT/ICU care -aspiration precautions -legionella ag urine, cocci ab, crAg Thank you for consulting [facility]. Will continue to follow along with you. Discussed with RN. Subjective Allergies: Coded Allergies: CODEINE (Verified Allergy, Intermediate, 02/03/19) Subjective last night patient coded and was intubated and transferred to ICU became hypotensive and febrile to 102 was on 3 pressors; now on 2 (levo and vasopersin) started on broad spectrum antibiotics Objective Vital Signs Last 24 Hour Vital Signs Date Time Temp Pulse Resp B/P (MAP) Pulse Ox O2 Delivery O2 Flow Rate FiO2 02/17/19 10:00 02/17/19 10:00 96.1 128 20 100 Mechanical Ventilator 100 02/17/19 09:45 127 20 44/34 100 Mechanical Ventilator 100 02/17/19 09:30 90 02/17/19 09:30 126 20 70/22 100 Mechanical Ventilator 100 02/17/19 09:15 116 16 60/27 100 Mechanical Ventilator 100 02/17/19 09:05 117 16 90 02/17/19 09:00 117 16 71/48 100 Mechanical Ventilator 100 02/17/19 09:00 71/48 02/17/19 09:00 90 02/17/19 08:45 124 16 79/31 100 Mechanical Ventilator 100 12/5/19 08:30 124 16 78/31 100 Mechanical Ventilator 100 02/17/19 08:15 124 16 70/31 100 Mechanical Ventilator 100 02/17/19 08:00 94.0 124 16 61/27 100 Mechanical Ventilator 100 02/17/19 08:00 100 02/17/19 08:00 61/27 02/17/19 07:45 124 16 40/31 100 Mechanical Ventilator 100 02/17/19 07:38 82/17 02/17/19 07:30 125 16 40/23 100 Mechanical Ventilator 100 02/17/19 07:15 124 16 114/52 100 Mechanical Ventilator 100 02/17/19 07:00 121 16 76/50 100 Mechanical Ventilator 100 02/17/19 06:49 119 86/52 02/17/19 06:45 119 16 86/64 100 Mechanical Ventilator 100 02/17/19 06:30 122 31 58/11 74 Venturi Mask 14.0 02/17/19 06:30 121 16 100 02/17/19 06:20 121 31 86 Non-Rebreather 15.0 100 02/17/19 06:15 109 37 76 Venturi Mask 14.0 02/17/19 06:00 116 39 59/36 83 Venturi Mask 14.0 02/17/19 05:45 117 35 71/52 Venturi Mask 14.0 02/17/19 05:30 116 35 79/49 Venturi Mask 14.0 02/17/19 05:15 114 35 83/37 Venturi Mask 14.0 02/17/19 05:00 113 35 79/28 Venturi Mask 14.0 02/17/19 04:45 113 36 75/51 94 Venturi Mask 14.0 02/17/19 04:30 117 35 48/14 Venturi Mask 14.0 02/17/19 04:15 114 35 51/29 Venturi Mask 14.0 02/17/19 04:00 97.9 119 35 77/55 Venturi Mask 14.0 02/17/19 04:00 113 02/17/19 03:45 118 35 75/79 Venturi Mask 14.0 02/17/19 03:30 95.2 118 35 75/49 97 Venturi Mask 14.0 02/17/19 03:15 115 35 92/66 100 Venturi Mask 14.0 02/17/19 03:00 112 35 61/39 100 Non-Rebreather 15.0 02/17/19 02:45 116 35 55/32 100 Non-Rebreather 15.0 02/17/19 02:45 53/31 02/17/19 02:30 124 35 53/31 100 Non-Rebreather 15.0 02/17/19 02:15 125 35 56/42 100 Non-Rebreather 15.0 02/17/19 02:00 125 36 59/37 100 Non-Rebreather 15.0 02/17/19 01:45 118 36 41/11 86 Non-Rebreather 15.0 02/17/19 01:30 127 36 60/45 86 Non-Rebreather 15.0 02/17/19 01:15 132 36 54/65 86 Non-Rebreather 15.0 02/17/19 01:00 132 36 101/84 86 Non-Rebreather 15.0 02/17/19 00:45 132 35 97/65 100 Non-Rebreather 15.0 02/17/19 00:30 124 35 71/36 100 Non-Rebreather 15.0 02/17/19 00:24 58/28 02/17/19 00:15 121 35 54/30 77 Non-Rebreather 15.0 02/17/19 00:00 99.6 137 35 58/28 100 Non-Rebreather 15.0 02/17/19 00:00 136 02/16/19 23:45 136 35 85/33 100 Non-Rebreather 15.0 02/16/19 23:30 127 36 57/21 100 Non-Rebreather 15.0 02/16/19 23:15 129 41 42/18 96 Non-Rebreather 15.0 02/16/19 23:00 133 59/46 02/16/19 23:00 102.1 130 41 86/41 96 Non-Rebreather 15.0 02/16/19 21:00 Room Air 02/16/19 20:00 99.3 62 16 112/50 (70) 96 02/16/19 19:04 139 02/16/19 16:00 129 02/16/19 16:00 99.6 129 20 100/59 (73) 96 02/16/19 14:03 99.9 02/16/19 12:00 127 02/16/19 12:00 97.6 127 18 110/77 (88) 96 Height (Feet): 5 Height (Inches): 9.00 Weight (Pounds): 179 Objective General Appearance: WD/WN, no apparent distress Lines, tubes and drains: peripheral HEENT: normocephalic, atraumatic Neck: non-tender, normal alignment Respiratory/Chest: chest wall non-tender, lungs clear Breasts: no masses Cardiovascular/Chest: normal peripheral pulses, normal rate Abdomen: normal bowel sounds, non tender Genitourinary/Rectal: normal genital exam Extremities: normal range of motion Skin Exam: normal pigmentation Microbiology Date/Time Source Procedure Growth Status 02/16/19 20:35 Nasopharynx - Final Complete 02/16/19 20:35 Nasopharynx - Final Complete 02/15/19 10:28 Nose MRSA Culture - Final NO METHICILLIN RESISTANT STAPH AUREUS... Complete 02/15/19 10:28 Rectum VRE Culture - Final Enterococcus Faecium - Vre Complete Laboratory Tests Test 02/16/19 15:30 02/16/19 22:35 02/16/19 22:54 02/16/19 23:20 Activated Partial Thromboplast Time 99 SEC (23-33) H > 150 SEC (23-33) *H Arterial Blood pH 7.463 (7.350-7.450) Arterial Blood Partial Pressure CO2 20.4 mmHg (35.0-45.0) *L Arterial Blood Partial Pressure O2 215.4 mmHg (75.0-100.0) H Arterial Blood HCO3 14.3 mmol/L (22.0-26.0) *L Arterial Blood Oxygen Saturation 96.2 % (95-100) Arterial Blood Base Excess -8.0 (-2-2) L Juan Test Positive White Blood Count 0.8 K/UL (4.8-10.8) #*L Red Blood Count 3.09 M/UL (4.20-5.40) L Hemoglobin 9.8 G/DL (12.0-16.0) L Hematocrit 29.9 % (37.0-47.0) L Mean Corpuscular Volume 97 FL (80-99) Mean Corpuscular Hemoglobin 31.8 PG (27.0-31.0) H Mean Corpuscular Hemoglobin Concent 32.9 G/DL (32.0-36.0) Red Cell Distribution Width 13.7 % (11.6-14.8) Platelet Count 227 K/UL (150-450) Mean Platelet Volume 4.8 FL (6.5-10.1) L Neutrophils (%) (Auto) % (45.0-75.0) Lymphocytes (%) (Auto) % (20.0-45.0) Monocytes (%) (Auto) % (1.0-10.0) Eosinophils (%) (Auto) % (0.0-3.0) Basophils (%) (Auto) % (0.0-2.0) Sodium Level 142 MMOL/L (136-145) Potassium Level 3.4 MMOL/L (3.5-5.1) L Chloride Level 113 MMOL/L (98-107) H Carbon Dioxide Level 16 MMOL/L (21-32) L Anion Gap 13 mmol/L (5-15) Blood Urea Nitrogen 21 mg/dL (7-18) H Creatinine 1.8 MG/DL (0.55-1.30) #H Estimat Glomerular Filtration Rate 34.3 mL/min (>60) Glucose Level 105 MG/DL (74-106) Calcium Level 5.8 MG/DL (8.5-10.1) *L Phosphorus Level 2.7 MG/DL (2.5-4.9) Magnesium Level 1.5 MG/DL (1.8-2.4) L Total Bilirubin 0.7 MG/DL (0.2-1.0) Aspartate Amino Transf (AST/SGOT) 48 U/L (15-37) H Alanine Aminotransferase (ALT/SGPT) 25 U/L (12-78) Alkaline Phosphatase 151 U/L (46-116) H Troponin I 0.047 ng/mL (0.000-0.056) Total Protein 3.3 G/DL (6.4-8.2) L Albumin 0.6 G/DL (3.4-5.0) L Globulin 2.7 g/dL Albumin/Globulin Ratio 0.2 (1.0-2.7) L Test 02/17/19 00:29 02/17/19 00:45 02/17/19 03:30 02/17/19 04:00 Arterial Blood pH 7.412 (7.350-7.450) Arterial Blood Partial Pressure CO2 18.5 mmHg (35.0-45.0) *L Arterial Blood Partial Pressure O2 113.2 mmHg (75.0-100.0) H Arterial Blood HCO3 11.5 mmol/L (22.0-26.0) *L Arterial Blood Oxygen Saturation 95.2 % (95-100) Arterial Blood Base Excess -11.4 (-2-2) *L Juan Test Positive White Blood Count 0.7 K/UL (4.8-10.8) *L Red Blood Count 2.86 M/UL (4.20-5.40) L Hemoglobin 9.1 G/DL (12.0-16.0) L Hematocrit 28.1 % (37.0-47.0) L Mean Corpuscular Volume 98 FL (80-99) Mean Corpuscular Hemoglobin 31.7 PG (27.0-31.0) H Mean Corpuscular Hemoglobin Concent 32.3 G/DL (32.0-36.0) Red Cell Distribution Width 14.0 % (11.6-14.8) Platelet Count 221 K/UL (150-450) Mean Platelet Volume 5.0 FL (6.5-10.1) L Neutrophils (%) (Auto) % (45.0-75.0) Lymphocytes (%) (Auto) % (20.0-45.0) Monocytes (%) (Auto) % (1.0-10.0) Eosinophils (%) (Auto) % (0.0-3.0) Basophils (%) (Auto) % (0.0-2.0) Sodium Level 143 MMOL/L (136-145) Potassium Level 3.1 MMOL/L (3.5-5.1) L Chloride Level 112 MMOL/L (98-107) H Carbon Dioxide Level 16 MMOL/L (21-32) L Anion Gap 15 mmol/L (5-15) Blood Urea Nitrogen 22 mg/dL (7-18) H Creatinine 1.8 MG/DL (0.55-1.30) H Estimat Glomerular Filtration Rate 34.3 mL/min (>60) Glucose Level 75 MG/DL (74-106) Calcium Level 5.6 MG/DL (8.5-10.1) *L Ionized Calcium (Measured) 0.94 mmol/L (1.10-1.35) L Troponin I 0.051 ng/mL (0.000-0.056) 0.076 ng/mL (0.000-0.056) Anti-Diuretic Hormone Pending Lactic Acid Level 8.30 mmol/L (0.4-2.0) H Urine Color Pale yellow Urine Appearance Clear Urine pH 6.5 (4.5-8.0) Urine Specific [place] 1.010 (1.005-1.035) Urine Protein Negative (NEGATIVE) Urine Glucose (UA) Negative (NEGATIVE) Urine Ketones Negative (NEGATIVE) Urine Blood 2+ (NEGATIVE) H Urine Nitrite Negative (NEGATIVE) Urine Bilirubin Negative (NEGATIVE) Urine Urobilinogen Normal MG/DL (0.0-1.0) Urine Leukocyte Esterase Negative (NEGATIVE) Urine RBC 0-2 /HPF (0 - 2) Urine WBC 0-2 /HPF (0 - 2) Urine Squamous Epithelial Cells Few /LPF (NONE/OCC) Urine Bacteria Few /HPF (NONE) Test 02/17/19 05:05 02/17/19 07:56 Lactic Acid Level 8.90 mmol/L (0.66-2.22) H Arterial Blood pH 6.917 (7.350-7.450) Arterial Blood Partial Pressure CO2 35.1 mmHg (35.0-45.0) Arterial Blood Partial Pressure O2 213.6 mmHg (75.0-100.0) H Arterial Blood HCO3 7.0 mmol/L (22.0-26.0) *L Arterial Blood Oxygen Saturation 96.2 % (95-100) Arterial Blood Base Excess -24.7 (-2-2) *L Juan Test Positive Current Medications Medications (Trade) Dose Ordered Sig/Ronnie Route PRN Reason Start Time Stop Time Status Last Admin Dose Admin Acetaminophen (Tylenol) 650 mg Q4H PRN ORAL fever 02/17/19 03:15 03/17/19 11:14 Amikacin Protocol (Amikacin pharmacy to dose) 1 ea DAILY PRN MISC Per rx protocol 02/17/19 11:00 03/19/19 10:59 Amikacin Sulfate 1250 mg/Sodium Chloride 115 ml @ 115 mls/hr ONCE IV 02/17/19 13:00 02/17/19 16:00 Dextrose (Dextrose 50%) 25 ml Q30M PRN IV Hypoglycemia 02/17/19 00:15 03/17/19 11:14 Dextrose (Dextrose 50%) 50 ml Q30M PRN IV Hypoglycemia 02/17/19 00:15 03/17/19 11:14 Hydrocortisone (Solu-CORTEF) 100 mg EVERY 8 HOURS IV 02/17/19 14:00 03/19/19 13:59 Meropenem 1 gm/ Sodium Chloride 55 ml @ 110 mls/hr Q12H IVPB 02/17/19 12:00 02/22/19 11:59 Morphine Sulfate (Morphine Sulfate) 4 mg Q2H PRN IVP Severe Pain (Pain Scale 7-10) 02/17/19 01:30 02/23/19 13:29 Norepinephrine Bitartrate 8 mg/ Dextrose 500 ml @ 0 mls/hr Q24H IV 02/17/19 07:30 03/19/19 07:29 02/17/19 07:38 Phenylephrine HCl 50 mg/Dextrose 250 ml @ 0 mls/hr Q24H IV 02/17/19 03:00 03/19/19 02:59 02/17/19 06:49 Sodium Bicarbonate 150 ml/Dextrose 1,150 ml @ 150 mls/hr Q7H40M IV 02/17/19 12:00 03/19/19 11:59 Tbo-Filgrastim (Granix) 300 mcg DAILY SQ 02/17/19 12:00 02/17/19 14:00 Tbo-Filgrastim (Granix) 300 mcg QHS SQ 02/17/19 21:00 03/19/19 20:59 Vancomycin HCl (Vanco rx to dose) 1 ea DAILY PRN MISC Per rx protocol 02/17/19 09:00 03/18/19 23:44 Vancomycin HCl 750 mg/Sodium Chloride 275 ml @ 184 mls/hr Q12H IVPB 02/17/19 02:00 02/22/19 01:59 02/17/19 02:40 Vasopressin 100 units/Sodium Chloride 100 ml @ 0 mls/hr Q24H IV 02/17/19 02:00 03/19/19 01:59 02/17/19 02:04 Zolpidem Tartrate (Ambien) 5 mg HSPRN PRN ORAL Insomnia 02/17/19 11:15 02/22/19 11:14 Cely Carballo M.D. Feb 17, 2019 11:48
[2019-02-17] MEDS ORDERED: TBO-Filgrastim 300 mcg/0.5ml SQ SCH ×2 (12:00→21:00)
[2019-02-17] MEDS ORDERED: Meropenem 1 GM in NS 55 ML IVPB SCH (12:00)
--- NOTE | 2019-02-17 12:15 | Diagnostic Imaging Report ---
Indication: Dyspnea, post intubation Technique: One view of the chest Comparison: 02/16/2019 Findings: Interim endotracheal intubation, endotracheal tube tip projecting approximately 3 cm above the roshni. New or increased hazy opacity is seen throughout the left lung. There is some atelectasis and consolidation at the right lung base which appears similar to the prior exam. There is no reticular and hazy opacity in the right upper lobe. Left-sided pleural effusion appears increased. There is probably some right-sided pleural fluid as well. Cervical and thoracolumbar spine hardware, multiple upper abdominal surgical clips are again noted Impression: Satisfactory endotracheal intubation Increased left-sided pleural effusion Increased diffuse left lung and right upper lobe parenchymal disease Stable right basilar atelectasis and consolidation
--- NOTE | 2019-02-17 12:20 | NUR ---
NURSE NOTES: Informed Dr. Arnett of ABG results. Ordered another ABG @1400. Will follow up.
--- NOTE | 2019-02-17 12:46 | Cardiology Report ---
APPROVED REPORT EKG Measurement Heart [id number] Supraventricular tachycardia Minimal voltage criteria for LVH, may be normal variant Nonspecific T wave abnormality Abnormal ECG
[2019-02-17] MEDS ORDERED: Amikacin 1,250 MG in NS 110 ML IV SCH (13:00)
--- NOTE | 2019-02-17 13:10 | Cardiology Report ---
APPROVED REPORT EXAM: Two-dimensional and M-mode echocardiogram with Doppler and color Doppler. INDICATION TACHY M-Mode DIMENSIONS IVSd1.1 (0.7-1.1cm)Left Atrium (MM)3.2 (1.6-4.0cm) LVDd2.9 (3.5-5.6cm)Aortic Root2.3 (2.0-3.7cm) PWd1.1 (0.7-1.1cm)Aortic Cusp Exc.1.8 (1.5-2.0cm) LVDs2.0 (2.5-4.0cm) PWs1.6 cm Normal left ventricular chamber size. Mild septal hypokinesis. Left ventricular ejection fraction estimated to be 50 %. No left ventricular hypertrophy. Small pericardial effusion. All other cardiac chamber sizes are within normal limits. Focal aortic valve sclerosis with adequate cusp excursion. Thickened mitral valve leaflets with normal excursion. Mitral annulus and aortic root calcification. Pulmonic valve not well visualized. Normal tricuspid valve structure. IVC at normal size with physiologic collapse. A color flow and spectral Doppler study was performed and revealed: No aortic regurgitation. Trace mitral regurgitation. Mitral diastolic velocities suggest reduced left ventricular relaxation c/w mild LV diastolic dysfunction (Grade I). Trace tricuspid regurgitation. Tricuspid systolic velocities suggests peak right ventricular systolic pressure of 15 mmHg. Trace pulmonic regurgitation present.
--- NOTE | 2019-02-17 13:17 | NUR ---
NURSE NOTES: Seen by Dr. Carballo and assessed patient. And informed that pt's is positive for VRE rectum.
--- NOTE | 2019-02-17 13:27 | NUR ---
NURSE NOTES: Seen by Dr. Arnett and ordered another 3 amps of sodium bicarb bolus. Will follow up.
[2019-02-17] MEDS ORDERED: Hydrocortisone 100mg Inj IV SCH (14:00)
--- NOTE | 2019-02-17 14:05 | NUR ---
NURSE NOTES: Asystole noted on the stone layout marker. No pulse noted. Called code blue and initiated CPR. See code blue sheet.
--- NOTE | 2019-02-17 14:18 | NUR ---
RESPIRATORY NOTE: At 1405, code blue called due to asystole on the hospital nurse. No pulse noted. Initiated CPR per RN and RT. Pt off vent and was bagging via 15L 100% FiO2 throughout the code. Dr. Carrasco talked with family and pronounced pt at 1418.
--- NOTE | 2019-02-17 14:18 | NUR ---
NURSE NOTES: Dr. Carrasco talked with family and announced the .
[2019-02-17] MEDS ORDERED: D5W 275ml ONE (14:19)
[2019-02-17] MEDS ORDERED: D5W 550ml IV ONE (14:19)
[2019-02-17] MEDS ORDERED: Tubing IV Secondary IV ONE (14:19)
[2019-02-17] MEDS ORDERED: NS 275ml ONE ×2 (14:19)
--- NOTE | 2019-02-17 14:30 | NUR ---
NURSE NOTES: Charge nurse notified Dr. Arnett that patient is and notified [facility].
--- NOTE | 2019-02-17 14:37 | Emergency Room Report ---
History of Present Illness General Chief Complaint: General Complaint Source: Medical Record, PMD Present Illness HPI 63-year-old female multiple comorbidities, presents with asystole, I was called to bedside to code patient, history is limited due to patient's medical condition, currently intubated nonresponsive Allergies: Coded Allergies: CODEINE (Verified Allergy, Intermediate, 02/03/19) Patient History Limited by: medical condition - Intubated, unresponsive Past Medical History: see triage record, old chart reviewed Now: No Reviewed Nursing Documentation: PMH: Agreed; PSxH: Agreed Nursing Documentation-PMH Past Medical History: No History, Except For Hx Cardiac Problems: No - Bilat LE DVT, rt. hemiplegia Hx Cancer: No Hx Gastrointestinal Problems: Yes - Gastric bypass (2003), UTI Hx Neurological Problems: No - lumbar fusion Review of Systems All Other Systems: limited - Intubated, unresponsive Physical Exam Vital Signs Date Time Temp Pulse Resp B/P (MAP) Pulse Ox O2 Delivery O2 Flow Rate FiO2 02/15/19 08:23 97.9 105 20 84/58 (67) 96 Room Air 02/16/19 23:00 15.0 02/17/19 06:20 100 Sp02 EP Interpretation: reviewed, abnormal - Low General Appearance: severe distress, other - Unresponsive Eyes: bilateral eye other - Fixed dilated pupils Respiratory: rhonchi, other - Rhonchus to bagging Cardiovascular #1: other - No pulse Gastrointestinal: non-distended Neuologic: Unresponsive Procedures Critical Care Time Critical Care Time Given the critical condition in which the patient arrived, the patient was immediately assessed by myself and the nurse, and cardiac monitoring initiated due to the potential for rapid decompensation of the patient's clinical condition. During the course of the patient's stay, I spent a considerable amount of time at the bedside performing serial re-evaluations of the patient's hemodynamic and clinical status because of the recognized potential threat to life or limb in this condition. I then had a chance to review not only all of the available current laboratory and radiographic studies obtained today, but I also reviewed old records available to me at the time. Additionally, any ancillary information available including caramel cutter hand records were reviewed. Sequential vital signs were obtained. Critical Care time of 31 minutes was performed exclusive of billable procedures. CPR/Code Blue CPR/Code Blue Narrative I was called to bedside, refer to ACLS protocol referred to Nursing sheet Time of 1418 02/17/2019 Medical Decision Making Diagnostic Impression: Primary Impression: Dyspnea Qualified Codes: R06.00 - Dyspnea, unspecified Additional Impressions: DVT (deep venous thrombosis) Qualified Codes: I82.4Y3 - Acute embolism and thrombosis of unspecified deep veins of proximal lower extremity, bilateral Pleural effusion on left Asystole ER Course 63-year-old female presents with cardiac arrest completely unresponsive, fixed dilated pupils, ACLS protocol was performed, Spoke with family at bedside, counseled them on futility of continued CPR, patient is already on max pressors, they want to continue CPR for a few more minutes, time of was called [id number]. They opted to eventually stop CPR at 1418 Last Vital Signs Date Time Temp Pulse Resp B/P (MAP) Pulse Ox O2 Delivery O2 Flow Rate FiO2 02/17/19 13:54 90 32/15 02/17/19 12:58 23 90 02/17/19 10:00 96.1 100 Mechanical Ventilator 02/17/19 06:30 14.0 Disposition: Condition: Critical Referrals: Devonte Menjivar MD (PCP) Enmanuel Helm MD Feb 17, 2019 14:37
[2019-02-17] MEDS ORDERED: Micafungin 100 MG in NS 110 ML IVPB SCH (15:00)
--- NOTE | 2019-02-17 15:05 | NUR ---
NURSE NOTES: care done. Family members are at the bedside.
[2019-02-17] MEDS ORDERED: Etomidate 40mg/20ml Inj IV ONE (15:38)
[2019-02-17] MEDS ORDERED: Rocuronium Bromide 50mg/5ml Inj IV ONE (15:38)
--- NOTE | 2019-02-17 15:38 | Surgery Progress Note ---
Surgery Progress Note Subjective Procedure Performed right femoral central venous catheter insertion Additional Comments Late entry as patient seen earlier this morning and evaluated in the ICU. Patient had significant decompensated requiring intubation on vent support. Now on 3 pressors as of this morning. At the time of this note patient is now . Continued decompensation. Labs reviewed. Objective Last 24 Hour Vital Signs Date Time Temp Pulse Resp B/P (MAP) Pulse Ox O2 Delivery O2 Flow Rate FiO2 02/17/19 13:54 90 32/15 02/17/19 13:10 51/21 02/17/19 12:58 129 23 90 02/17/19 12:00 Mechanical Ventilator 02/17/19 11:35 128 22 90 02/17/19 10:00 68/21 02/17/19 10:00 96.1 128 20 68/ 100 Mechanical Ventilator 100 02/17/19 09:45 127 20 44/34 100 Mechanical Ventilator 100 02/17/19 09:30 90 02/17/19 09:30 126 20 70/22 100 Mechanical Ventilator 100 02/17/19 09:15 116 16 60/27 100 Mechanical Ventilator 100 02/17/19 09:05 117 16 90 02/17/19 09:00 117 16 71/48 100 Mechanical Ventilator 100 02/17/19 09:00 71/48 02/17/19 09:00 90 02/17/19 08:45 124 16 79/31 100 Mechanical Ventilator 100 02/17/19 08:30 124 16 78/31 100 Mechanical Ventilator 100 02/17/19 08:15 124 16 70/31 100 Mechanical Ventilator 100 02/17/19 08:00 94.0 124 16 61/27 100 Mechanical Ventilator 100 02/17/19 08:00 100 02/17/19 08:00 Mechanical Ventilator 02/17/19 08:00 61/27 02/17/19 07:45 124 16 40/31 100 Mechanical Ventilator 100 02/17/19 07:38 82/17 02/17/19 07:30 125 16 40/23 100 Mechanical Ventilator 100 02/17/19 07:15 124 16 114/52 100 Mechanical Ventilator 100 02/17/19 07:00 121 16 76/50 100 Mechanical Ventilator 100 02/17/19 06:49 119 86/52 02/17/19 06:45 119 16 86/64 100 Mechanical Ventilator 100 02/17/19 06:30 122 31 58/11 74 Venturi Mask 14.0 02/17/19 06:30 121 16 100 02/17/19 06:20 121 31 86 Non-Rebreather 15.0 100 02/17/19 06:15 109 37 76 Venturi Mask 14.0 02/17/19 06:00 116 39 59/36 83 Venturi Mask 14.0 02/17/19 05:45 117 35 71/52 Venturi Mask 14.0 02/17/19 05:30 116 35 79/49 Venturi Mask 14.0 02/17/19 05:15 114 35 83/37 Venturi Mask 14.0 02/17/19 05:00 113 35 79/28 Venturi Mask 14.0 02/17/19 04:45 113 36 75/51 94 Venturi Mask 14.0 02/17/19 04:30 117 35 48/14 Venturi Mask 14.0 02/17/19 04:15 114 35 51/29 Venturi Mask 14.0 02/17/19 04:00 97.9 119 35 77/55 Venturi Mask 14.0 02/17/19 04:00 113 02/17/19 03:45 118 35 75/79 Venturi Mask 14.0 02/17/19 03:30 95.2 118 35 75/49 97 Venturi Mask 14.0 02/17/19 03:15 115 35 92/66 100 Venturi Mask 14.0 02/17/19 03:00 112 35 61/39 100 Non-Rebreather 15.0 02/17/19 02:45 116 35 55/32 100 Non-Rebreather 15.0 02/17/19 02:45 53/31 02/17/19 02:30 124 35 53/31 100 Non-Rebreather 15.0 02/17/19 02:15 125 35 56/42 100 Non-Rebreather 15.0 02/17/19 02:00 125 36 59/37 100 Non-Rebreather 15.0 02/17/19 01:45 118 36 41/11 86 Non-Rebreather 15.0 02/17/19 01:30 127 36 60/45 86 Non-Rebreather 15.0 02/17/19 01:15 132 36 54/65 86 Non-Rebreather 15.0 02/17/19 01:00 132 36 101/84 86 Non-Rebreather 15.0 02/17/19 00:45 132 35 97/65 100 Non-Rebreather 15.0 02/17/19 00:30 124 35 71/36 100 Non-Rebreather 15.0 02/17/19 00:24 58/28 02/17/19 00:15 121 35 54/30 77 Non-Rebreather 15.0 02/17/19 00:00 99.6 137 35 58/28 100 Non-Rebreather 15.0 02/17/19 00:00 136 02/16/19 23:45 136 35 85/33 100 Non-Rebreather 15.0 02/16/19 23:30 127 36 57/21 100 Non-Rebreather 15.0 02/16/19 23:15 129 41 42/18 96 Non-Rebreather 15.0 02/16/19 23:00 133 59/46 02/16/19 23:00 102.1 130 41 86/41 96 Non-Rebreather 15.0 02/16/19 21:00 Room Air 02/16/19 20:00 99.3 62 16 112/50 (70) 96 02/16/19 19:04 139 02/16/19 16:00 129 02/16/19 16:00 99.6 129 20 100/59 (73) 96 I&O Intake and Output 02/16/19 02/17/19 18:59 06:59 Intake Total 291.321 ml 1043.248 ml Output Total 200 ml 910 ml Balance 91.321 ml 133.248 ml Intake Oral 260 ml IV Total 31.321 ml 1043.248 ml Output Urine Total 200 ml 910 ml Dressing: other Wound: other Drains: other Cardiovascular: other Respiratory: other Abdomen: soft, other, decreased bowel sounds Extremities: edema, no cyanosis, other Laboratory Tests Test 02/16/19 22:35 02/16/19 22:54 02/16/19 23:20 02/17/19 00:29 Activated Partial Thromboplast Time > 150 SEC (23-33) *H Arterial Blood pH 7.463 (7.350-7.450) 7.412 (7.350-7.450) Arterial Blood Partial Pressure CO2 20.4 mmHg (35.0-45.0) *L 18.5 mmHg (35.0-45.0) *L Arterial Blood Partial Pressure O2 215.4 mmHg (75.0-100.0) H 113.2 mmHg (75.0-100.0) H Arterial Blood HCO3 14.3 mmol/L (22.0-26.0) *L 11.5 mmol/L (22.0-26.0) *L Arterial Blood Oxygen Saturation 96.2 % (95-100) 95.2 % (95-100) Arterial Blood Base Excess -8.0 (-2-2) L -11.4 (-2-2) *L Juan Test Positive Positive White Blood Count 0.8 K/UL (4.8-10.8) #*L Red Blood Count 3.09 M/UL (4.20-5.40) L Hemoglobin 9.8 G/DL (12.0-16.0) L Hematocrit 29.9 % (37.0-47.0) L Mean Corpuscular Volume 97 FL (80-99) Mean Corpuscular Hemoglobin 31.8 PG (27.0-31.0) H Mean Corpuscular Hemoglobin Concent 32.9 G/DL (32.0-36.0) Red Cell Distribution Width 13.7 % (11.6-14.8) Platelet Count 227 K/UL (150-450) Mean Platelet Volume 4.8 FL (6.5-10.1) L Neutrophils (%) (Auto) % (45.0-75.0) Lymphocytes (%) (Auto) % (20.0-45.0) Monocytes (%) (Auto) % (1.0-10.0) Eosinophils (%) (Auto) % (0.0-3.0) Basophils (%) (Auto) % (0.0-2.0) Sodium Level 142 MMOL/L (136-145) Potassium Level 3.4 MMOL/L (3.5-5.1) L Chloride Level 113 MMOL/L (98-107) H Carbon Dioxide Level 16 MMOL/L (21-32) L Anion Gap 13 mmol/L (5-15) Blood Urea Nitrogen 21 mg/dL (7-18) H Creatinine 1.8 MG/DL (0.55-1.30) #H Estimat Glomerular Filtration Rate 34.3 mL/min (>60) Glucose Level 105 MG/DL (74-106) Calcium Level 5.8 MG/DL (8.5-10.1) *L Phosphorus Level 2.7 MG/DL (2.5-4.9) Magnesium Level 1.5 MG/DL (1.8-2.4) L Total Bilirubin 0.7 MG/DL (0.2-1.0) Aspartate Amino Transf (AST/SGOT) 48 U/L (15-37) H Alanine Aminotransferase (ALT/SGPT) 25 U/L (12-78) Alkaline Phosphatase 151 U/L (46-116) H Troponin I 0.047 ng/mL (0.000-0.056) Total Protein 3.3 G/DL (6.4-8.2) L Albumin 0.6 G/DL (3.4-5.0) L Globulin 2.7 g/dL Albumin/Globulin Ratio 0.2 (1.0-2.7) L Test 02/17/19 00:45 02/17/19 03:30 02/17/19 04:00 02/17/19 05:05 White Blood Count 0.7 K/UL (4.8-10.8) *L Red Blood Count 2.86 M/UL (4.20-5.40) L Hemoglobin 9.1 G/DL (12.0-16.0) L Hematocrit 28.1 % (37.0-47.0) L Mean Corpuscular Volume 98 FL (80-99) Mean Corpuscular Hemoglobin 31.7 PG (27.0-31.0) H Mean Corpuscular Hemoglobin Concent 32.3 G/DL (32.0-36.0) Red Cell Distribution Width 14.0 % (11.6-14.8) Platelet Count 221 K/UL (150-450) Mean Platelet Volume 5.0 FL (6.5-10.1) L Neutrophils (%) (Auto) % (45.0-75.0) Lymphocytes (%) (Auto) % (20.0-45.0) Monocytes (%) (Auto) % (1.0-10.0) Eosinophils (%) (Auto) % (0.0-3.0) Basophils (%) (Auto) % (0.0-2.0) Sodium Level 143 MMOL/L (136-145) Potassium Level 3.1 MMOL/L (3.5-5.1) L Chloride Level 112 MMOL/L (98-107) H Carbon Dioxide Level 16 MMOL/L (21-32) L Anion Gap 15 mmol/L (5-15) Blood Urea Nitrogen 22 mg/dL (7-18) H Creatinine 1.8 MG/DL (0.55-1.30) H Estimat Glomerular Filtration Rate 34.3 mL/min (>60) Glucose Level 75 MG/DL (74-106) Calcium Level 5.6 MG/DL (8.5-10.1) *L Ionized Calcium (Measured) 0.94 mmol/L (1.10-1.35) L Troponin I 0.051 ng/mL (0.000-0.056) 0.076 ng/mL (0.000-0.056) Anti-Diuretic Hormone Pending Lactic Acid Level 8.30 mmol/L (0.4-2.0) H 8.90 mmol/L (0.66-2.22) H Urine Color Pale yellow Urine Appearance Clear Urine pH 6.5 (4.5-8.0) Urine Specific [place] 1.010 (1.005-1.035) Urine Protein Negative (NEGATIVE) Urine Glucose (UA) Negative (NEGATIVE) Urine Ketones Negative (NEGATIVE) Urine Blood 2+ (NEGATIVE) H Urine Nitrite Negative (NEGATIVE) Urine Bilirubin Negative (NEGATIVE) Urine Urobilinogen Normal MG/DL (0.0-1.0) Urine Leukocyte Esterase Negative (NEGATIVE) Urine RBC 0-2 /HPF (0 - 2) Urine WBC 0-2 /HPF (0 - 2) Urine Squamous Epithelial Cells Few /LPF (NONE/OCC) Urine Bacteria Few /HPF (NONE) Test 02/17/19 07:56 02/17/19 11:45 Arterial Blood pH 6.917 (7.350-7.450) 7.142 (7.350-7.450) Arterial Blood Partial Pressure CO2 35.1 mmHg (35.0-45.0) 40.2 mmHg (35.0-45.0) Arterial Blood Partial Pressure O2 213.6 mmHg (75.0-100.0) H 121.7 mmHg (75.0-100.0) H Arterial Blood HCO3 7.0 mmol/L (22.0-26.0) *L 13.4 mmol/L (22.0-26.0) *L Arterial Blood Oxygen Saturation 96.2 % (95-100) 94.9 % (95-100) L Arterial Blood Base Excess -24.7 (-2-2) *L -14.6 (-2-2) *L Juan Test Positive Positive Plan Problems: (1) Sepsis Assessment & Plan: hypotension tachycardia unresponsive to fluids start Levophed now needs central venous catheter. see note iv fluids abx as per ID consider thora AM CXR repeat labs warming will follow with recs thank you Patient was on 3 pressors of that this morning. Intubated on vent support. Decompensated. Labs worsening. Condition worsened. Prognosis guarded. At the time of this note patient has coded and since . Patient was seen earlier this morning. (2) Severe protein-calorie malnutrition (3) Decubitus skin ulcer Junaid Hope Feb 17, 2019 15:38
--- NOTE | 2019-02-17 15:50 | NUR ---
NURSE NOTES: Informed Dr. Menjivar that patient was at [id number].
--- NOTE | 2019-02-17 16:00 | NUR ---
NURSE NOTES: Inventory check done with sister. Sister took all belongings.
--- NOTE | 2019-02-17 16:00 | Consultation ---
DATE OF CONSULTATION: 02/16/2019 CARDIOLOGY CONSULTATION CONSULTING PHYSICIAN: Humble Estrada M.D. REFERRING PHYSICIAN: Nga Arnett M.D. REASON FOR REFERRAL: Tachycardia. HISTORY OF PRESENT ILLNESS: This is a 63-year-old female, who has multiple medical problems as delineated below. The patient was admitted to the hospital because of pleural effusion that was noted on the chest x-ray performed in convalescent facility with some shortness of breath. She has poor p.o. intake and poor appetite. She denies any chest pain or shortness of breath. No PND, no orthopnea, but she uses three pillows for comfort. No dizziness or lightheadedness, although she is not able to stand up and walk. No heart pounding or palpitations. PAST MEDICAL HISTORY: Significant past medical problems including history of pulmonary embolism, bilateral deep venous thrombosis, pleural effusion, cervical fusion, she is status post bariatric surgery apparently in 2013, osteoporosis, urinary tract infection, hypoalbuminemia, thrombocytopenia, sacral decubitus ulcer, and history of morbid obesity. MEDICATIONS: Prior to 04:13 the hospital have been listed as , artificial tears, , Fosamax, melatonin, multivitamins. Other medications prior to admission are not available on the list, however through the computer system here, it has been reported that she is only taking those. ALLERGIES: She is allergic to codeine. SOCIAL HISTORY: Denies smoking, alcohol, or drugs. She is a resident of convalescent facility most recently. REVIEW OF SYSTEMS: GASTROINTESTINAL: She has had some constipation. GENITOURINARY: She had urinary tract infection 02:03, but not recently. PULMONARY: Some coughing and congestion. CONSTITUTIONAL: No fevers or chills. NEUROLOGICAL: Negative. PHYSICAL EXAMINATION: GENERAL: Shows to be a middle-aged female, in no respiratory distress, lying in bed approximately 30 degrees head of bed elevation. VITAL SIGNS: Blood pressure is 100/59 with heart rate of 129, temperature 99.6. NECK: Supple. No jugular venous distention. LUNGS: There is some decreased breath sounds in the left base. CARDIAC: Regular rhythm. Tachycardic. No heaves or thrills noted. ABDOMEN: Soft and obese. Positive bowel sounds. EXTREMITIES: Edema of the lower extremities bilaterally. LABORATORY AND DIAGNOSTIC DATA: White count of 2.7, hemoglobin 12.4, and platelet count of 368. Sodium 142, potassium 3.3, chloride 112, bicarbonate 20, BUN 17, creatinine 1.1, glucose of 106, calcium is 6.2 with albumin of 1.0. Triglycerides 75, total cholesterol of 68 with LDL of 12, and HDL of 39. TSH of 3.26. PTT of 99. Imaging, a chest x-ray was performed showing increasing left-sided pleural effusion, right basilar atelectasis with right suprahilar atelectasis. Last echocardiogram was performed approximately two weeks ago. At that time, ejection fraction was 60%, mild diastolic relaxation abnormality. Telemetry data shows sinus tachycardia that gotten worse since admission originally. ASSESSMENT AND PLAN: 1. Sinus tachycardia, likely multifactorial. 2. History of pulmonary embolism and DVT. 3. Peripheral edema. 4. Poor p.o. intake. 5. Profound malnutrition with hypoalbuminemia. 6. Left-sided pleural effusion. Dr. Arnett, this patient was seen in cardiac consultation. The patient does have significant pleural effusion apparently on the left side. She does not appear to be any in kind of respiratory distress, but she is quite tachycardic and sinus tachycardia is likely secondary to demand, possibly from infectious or inflammatory basis of course possible other etiologies need to be excluded. An EKG will be ordered to evaluate and assure that this is purely sinus tachycardia. TSH is normal. Her hemoglobin is not significantly increased. If needed, beta-blockers can be administered to maintain the degree 05:58 tachycardia at least at a lower dose. I am not sure if she was on beta-blockers previously. She should be continued on anticoagulation for history of DVT and PE and I will follow her along with you. Humble Estrada M.D. DR: Herve JOB#: [id number] CC:
--- NOTE | 2019-02-17 17:17 | NUR ---
NURSE NOTES: Patient is transferred to [facility] [place].
--- NOTE | 2019-02-17 17:48 | Diagnostic Imaging Report ---
Indication: Dyspnea Technique: One view of the chest Comparison: 02/16/2019 Findings: ] A atelectasis, left-sided pleural effusion and possible hazy parenchymal opacity persists, unchanged. Cervical and lumbar spine fusion hardware again noted. Findings are unchanged Impression: 02/16/2019
--- NOTE | 2019-02-18 10:58 | Discharge Summary ---
Discharge Summary Discharge Summary _ SUMMARY DATE OF ADMISSION: 02/15/2019 DATE OF EXPIRATION: 02/17/2019 REASON FOR ADMISSION: 63 years old female with past medical history of pulmonary embolism, bilateral DVT, pleural effusion, history of spinal fusion in May 2018, history of gastric bypass in 2003, presented to emergency department complaining of shortness of breath. No reported fever or chills. No nausea or vomiting. Upon evaluation patient was tachycardic and blood pressure was on the low side. Pulse oximetry was stable on room air. Patient was afebrile. Chest x-ray revealed increasing left pleural effusion and right basilar atelectasis, since prior study of 02/07/2019. New right suprahilar atelectasis . Laboratory work-up revealed no leukocytosis , stable hemoglobin and hematocrit , stable electrolytes and renal parameters. AST 50 , ALT 45 . Albumin 1.4. EKG reveals sinus tachycardia , no acute ischemic changes. CONSULTANTS: [employer] Dr. Estrada pulmonary/critical care Dr. Arnett ID specialist Dr. Carballo surgery Dr. Hope HOSPITAL COURSE: Patient admitted and started on Lasix drip and heparin drip. 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 Patient was initially diagnosed with DVT and pulmonary embolism in January 2019 , but refused anticoagulation at that time. The next day WBC dropped significantly to 2.7. Patient remained tachycardic and developed fever of 102.1. Urinalysis was unremarkable. CXR revealed atelectasis, left-sided pleural effusion and possible hazy parenchymal opacity , unchanged. Patient started on empiric antibiotics as per ID specialist recommendations. The same day 02/16 patient's condition deteriorated . CODE BLUE was called and conducted as per ACLS protocol. Patient was orally intubated by emergency room physician. Chest x-ray confirmed placement of ET tube. At that time labs were drawn and WBC dropped down to 0.8. Hemoglobin 9.8 , hematocrit 29.9. Patient was transferred to ICU . Ventilator support and pulmonary toilet provided. Central line was inserted for pressors, and patient started on pressors due to severe hypotension. Pressors titrated to keep mean arterial blood pressure above 65. Patient received 1 dose of Granix. Patient started on IV steroids. Echocardiogram demonstrated mild septal hypokinesis. Left ventricular ejection fraction of 50%. Small pericardial effusion. At the time of this dictation, blood culture revealed E coli ESBL, likely due to probable pneumonia. Antibiotics continued. Patient remained in sinus tachycardia . Troponin was negative . Ore Digger followed . Per cardiology , sinus tachycardia was likely multifactorial. ECG with sinus rhythm, and nonspecific T wave abnormality. Renal parameters electrolytes were closely monitored. Electrolytes corrected as needed. Potassium and magnesium replaced. Patient developed acute kidney injury with creatinine up to 1.8 along with hypocalcemia. Patient has a history of gastric bypass in 2003 and demonstrated severe protein calorie malnutrition. Patient remained leukopenic and anemic. The next troponin was elevated 0.076, likely due to demand ischemia, possibly from infectious or inflammatory condition. Patient remained intubated and unresponsive Patient was on 3 different pressors: Levophed , phenylephrine and vasopressin . Another CODE BLUE was called on the 02/17 due to asystole. Code Blue was conducted as per ACLS protocol . Despite prolonged code, all attempts appeared to be futile. Patient was pronounced in 02/17/19 at 14:18 Cause of :cardiopulmonary arrest. FINAL DIAGNOSES: Sepsis with E coli ESBL bacteremia Septic shock Probable pneumonia Multiple organ failure Neutropenia Status post cardiopulmonary arrest x2 Acute respiratory failure, requiring intubation Left pleural effusion Pulmonary embolism Severe protein calorie malnutrition Anasarca History of gastric bypass I have been assigned to dictate discharge summary for this account. I was not involved in the patient's management. Lashawn Parham NP Feb 18, 2019 10:58
== END 2019-02-17 14:20 | disposition expired | DRG 208 ==
LOC: EDUNIT# 08:21 → EDBD 08:21 → EDBEDREQ 08:40 → EMR 08:50 → 2E 09:05 → EDBEDREQSVC 09:53 → EDBEDREQ 10:46 → 2E 02-16 13:07 → ICU 02-16 22:59
PROC: 5A12012 Performance of Cardiac Output, Single, Manual (ICD-10-PCS; principal; 2019-02-17)
PROC: 5A1935Z Respiratory Ventilation, Less than 24 Consecutive Hours (ICD-10-PCS; principal; 2019-02-17)
PROC: 0BH17EZ Insertion of Endotracheal Airway into Trachea, Via Natural or Artificial Opening (ICD-10-PCS; principal; 2019-02-17)
PROC: 06HM33Z Insertion of Infusion Device into Right Femoral Vein, Percutaneous Approach (ICD-10-PCS; principal; 2019-02-17)
DX: J90 Pleural effusion, not elsewhere classified (principal); E43 Unspecified severe protein-calorie malnutrition; R65.21 Severe sepsis with septic shock; J96.00 Acute respiratory failure, unspecified whether with hypoxia or hypercapnia; A41.50 Gram-negative sepsis, unspecified; J18.9 Pneumonia, unspecified organism; I26.99 Other pulmonary embolism without acute cor pulmonale; I82.403 Acute embolism and thrombosis of unspecified deep veins of lower extremity, bilateral; J98.11 Atelectasis; Z88.6 Allergy status to analgesic agent; Z98.1 Arthrodesis status; Z98.84 Bariatric surgery status; M81.0 Age-related osteoporosis without current pathological fracture; L89.90 Pressure ulcer of unspecified site, unspecified stage
CPT/HCPCS: 36415; 36600; 71045; 80048; 80053; 80061; 81003; 82330; 82803; 83605; 83735; 84100; 84443; 84484; 84588; 85007; 85025; 85610; 85730; 86710; 86850; 86900; 86901; 87040; 87081; 87181; 92950; 93005; 93306; 94002; 94003; 94664; 96361; 96374; 96375; 99285; J2370; J2405; J7030